=== PATIENT | male | born 1935 | race Caucasian/White ===

== ENCOUNTER 2017-11-03 08:40 | Inpatient (IN) | payer MEDICARE, OTHER ==
[2017-11-03] VITALS (10 sets, daily range): BP systolic 96–111; BP diastolic 48–63
[~2017-11-03] VITALS: Ht 157.5 cm; Wt 74.8 kg
[~2017-11-03 08:40] MED LIST: ALBUTEROL2.5 MG/3 M INH; ATROVENT HFA12.9 GM IH; AUGMENTIN 500-1 EACH ORAL; CIPROFLOXACIN750 MG ORAL; COMBIVENT RESPIM4 GM IH; CRESTOR10 M2 ORAL; CYMBALTA30 MG ORAL; DALIRESP500 MCG PO; FERROUS SULFAT325 MG ORAL; FISH OIL 1,0001 EAC1 ORAL; LOSARTAN POTASS25 MG ORAL; MESALAMINE800 MG PO; NEXIUM40 MG ORAL; PREDNISONE10 MG ORAL; PREDNISONE20 MG ORAL; PROSCAR5 MG ORAL; TAMSULOSIN HCL0.4 MG ORAL
[2017-11-03] MEDS ORDERED: Solu-MEDROL 125mg Inj IVP ONE (08:45)
--- NOTE | 2017-11-03 08:55 | Emergency Room Report ---
History of Present Illness General Chief Complaint: Dyspnea/Respdistress Source: Patient, Family Member Present Illness HPI 82-year-old male brought in by EMS with shortness of breath since last night Patient has known history of COPD, on home oxygen. Per EMR, patient has had multiple visits here before. Patient feels better after albuterol x3 and CPAP mask with EMS Refusing BiPAP in ER Denies fever, chills, recent cough or URI symptoms. Allergies: Coded Allergies: PENICILLINS (Verified Allergy, Intermediate, 08/28/16) AZITHROMYCIN (Verified Allergy, Unknown, 08/28/16) Diarrhea UNABLE TO ASSESS (Unverified , 11/03/17) Patient History Past Medical History: COPD Past Surgical History: none Pertinent Family History: none Social History: Denies: smoking, alcohol use, drug use Immunizations: UTD Reviewed Nursing Documentation: PMH: Agreed, PSxH: Agreed Nursing Documentation-PMH Hx Hypertension: Yes Hx COPD: Yes Hx Cancer: No Hx Gastrointestinal Problems: Yes Hx Neurological Problems: No Review of Systems All Other Systems: negative except mentioned in HPI Physical Exam Vital Signs Date Time Temp Pulse Resp B/P (MAP) Pulse Ox O2 Delivery O2 Flow Rate FiO2 11/03/17 08:34 120 30 118/66 95 Bi-pap Sp02 EP Interpretation: reviewed, normal General Appearance: normal inspection, well appearing, no apparent distress, alert, GCS 15, non-toxic Head: normocephalic, atraumatic Eyes: bilateral eye PERRL, bilateral eye EOMI ENT: normal ENT inspection, hearing grossly normal, normal pharynx, no angioedema, normal voice, TMs + canals normal, uvula midline, moist mucus membranes Neck: normal inspection, full range of motion, supple, thyroid normal, no meningismus, no bony tend Respiratory: normal inspection, lungs clear, normal breath sounds, no rhonchi, no respiratory distress, no retraction, no accessory muscle use, speaking full sentences, wheezing Cardiovascular #1: regular rate, rhythm, no edema, no JVD, normal capillary refill Gastrointestinal: normal inspection, normal bowel sounds, non tender, soft, no mass, no peritonitis, non-distended, no guarding, no hernia, no pulsatile mass Genitourinary: no CVA tenderness Musculoskeletal: normal inspection, back normal, normal range of motion, no calf tenderness, pelvis stable, Haroon's Sign negative Neurologic: normal inspection, alert, oriented x3, responsive, ship's carpenter III-XII nml as tested, motor strength/tone normal, cerebellar normal, normal gait, speech normal Psychiatric: normal inspection, judgement/insight normal, mood/affect normal, no suicidal/homicidal ideation, no delusions Skin: normal inspection, normal color, no rash Lymphatic: normal inspection, no adenopathy Procedures Critical Care Time Critical Care Time CC time 35 min Critical care time endorsed for this patient for severe respiratory distress, COPD exacerbation found d/t left lobar PNA Critical care time includes review of laboratory tests, imaging, review of EMR, review of paperwork from SNF (if available), discussion with patient and family (if available), review of code status/POLS (if available). Critical care time also likely includes assessment of fluid status, stabilization of vital signs, selection and dosing of appropriate antibiotics, sepsis care set. Critical care time does not include any procedures which are documented elsewhere in this EMR. Medical Decision Making Diagnostic Impression: Primary Impression: Dyspnea Qualified Codes: R06.00 - Dyspnea, unspecified Additional Impressions: CKD (chronic kidney disease) Qualified Codes: N18.9 - Chronic kidney disease, unspecified Pneumonia Qualified Codes: J18.1 - Lobar pneumonia, unspecified organism COPD exacerbation ER Course VS with tachycardia likely from 3x albuterol from EMS Afebrile Normotensive labs: Elevated leuks 16K CXR with left lower lobe PNA Blood Cx pending Flu pending Empiric Abx given SerumCr 1.8, consistent with known CKD Endorsed to Dr Chase for tele admit 944am EKG Diagnostic Results Rate: tachycardiac Rhythm: NSR ST Segments: no acute changes ASA given to the pt in ED: No Rhythm Strip Diag. Results EP Interpretation: yes Rate: 135 Rhythm: NSR, no PVC's, no ectopy Chest X-Ray Diagnostic Results Chest X-Ray Diagnostic Results : Chest X-Ray Ordered: Yes # of Views/Limited/Complete: 1 View Indication: Shortness of Breath EP Interpretation: Yes Interpretation: no effusion, no pneumothorax, no acute cardiopulmonary disease, other - left lower lobar PNA Last Vital Signs Date Time Temp Pulse Resp B/P (MAP) Pulse Ox O2 Delivery O2 Flow Rate FiO2 11/03/17 08:34 120 30 118/66 95 Bi-pap Status: improved Disposition: ADMITTED INPATIENT Condition: Critical DAIGNAULT,AKSHAT M.D. Nov 03, 2017 08:55
[2017-11-03] MEDS: Albuterol/Ipratropium 3ml neb HHN SCH ×32 (08:56→23:22)
[2017-11-03 09:02] LABS: BASOPHILS % (AUTO) 0.3 % (0.0-2.0); EOSINOPHILS % (AUTO) 0.9 % (0.0-3.0); HEMATOCRIT 52.1 % (42.0-52.0); HEMOGLOBIN 17.5 G/DL (14.2-18.0); LYMPHOCYTES % (AUTO) 11.4 % (20.0-45.0); MEAN CORPUSCULAR VOLUME 92 FL (80-99); MONOCYTES % (AUTO) 3.5 % (1.0-10.0); NEUTROPHILS % (AUTO) 83.9 % (45.0-75.0); PLATELET COUNT 280 K/UL (150-450); RED BLOOD COUNT 5.68 M/UL (4.70-6.10); RED CELL DISTRIBUTION WIDTH 12.3 % (11.6-14.8); WHITE BLOOD COUNT 16.8 K/UL (4.8-10.8)
[2017-11-03 09:12] LABS: ANION GAP 4 mmol/L (5-15); BLOOD UREA NITROGEN 20 mg/dL (7-18); CALCIUM 9.7 MG/DL (8.5-10.1); CARBON DIOXIDE 32 MMOL/L (21-32); CHLORIDE 97 MMOL/L (98-107); CREATININE 1.8 MG/DL (0.55-1.30); POTASSIUM 3.9 MMOL/L (3.5-5.1); SODIUM 133 MMOL/L (136-145)
[2017-11-03 09:26] LABS: ALANINE AMINOTRANSFERASE 39 U/L (12-78); ALBUMIN 3.4 G/DL (3.4-5.0); ALBUMIN/GLOBULIN RATIO 0.7 (1.0-2.7); ALKALINE PHOSPHATASE 105 U/L (46-116); ASPARTATE AMINO TRANSFERASE 33 U/L (15-37); CREATINE KINASE 75 U/L (26-308)
--- NOTE | 2017-11-03 10:42 | Diagnostic Imaging Report ---
Indication: Dyspnea Comparison: 08/29/2016 A single view chest radiograph was obtained. Findings: Patchy infiltrate noted at the lung bases worse on the left. Heart size is normal. Please correlate clinically. Bones are slightly osteopenic. IMPRESSION: Suspected pneumonia.
[2017-11-03] MEDS ORDERED: Milk of Magnesia 30ml Ud ORAL PRN (16:15)
[2017-11-03] MEDS ORDERED: Zolpidem 5mg tab ORAL PRN (16:15)
[2017-11-03] MEDS: Mesalamine 400mg cap ORAL SCH (18:19)
[2017-11-03] MEDS: Aztreonam Inj 1 GM in NS 55 ML IVPB SCH (18:20)
[2017-11-03] MEDS: Atorvastatin 20mg tab ORAL SCH (20:34)
[2017-11-03] MEDS: Tamsulosin 0.4mg cap ORAL SCH (20:34)
[2017-11-03] MEDS: Solu-MEDROL 125mg Inj IVP SCH (20:35)
[2017-11-03] MEDS: Heparin 5000 units/ml inj SUBQ SCH (20:36)
[2017-11-04] VITALS: BP 109/47
--- NOTE | 2017-11-04 00:15 | Consultation ---
DATE OF CONSULTATION: 11/03/2017 PULMONARY CONSULTATION CONSULTING PHYSICIAN: Anderson Chase M.D. REASON FOR ADMISSION: Pneumonia, respiratory insufficiency. HISTORY OF PRESENT ILLNESS: The patient is an 82-year-old male, brought in with shortness of breath. The patient with known history of COPD, on home oxygen. The patient has had multiple visits in the past. The patient was given albuterol several times without relief. The patient apparently refused BiPAP in the emergency room, but overall did improve to some extent and now admitted to the telemetry floor. The patient's care discussed and reviewed. The patient's chart previously reviewed. The patient remains with some dyspnea overall. The patient's office chart was well reviewed. The patient last seen in the office setting approximately one year ago. The patient has had prior admissions outlined for emphysema and COPD exacerbation. PAST MEDICAL HISTORY: Notable for benign prostatic hyperplasia, hypertension, hypercholesterolemia, prior history of colitis, COPD, and anemia. PAST SURGICAL HISTORY: Noncontributory. FAMILY HISTORY: Both parents . No significant medical problems. SOCIAL HISTORY: The patient is retired, lives with his spouse. The patient has two children. The patient is a former smoker and smoked approximately 50-pack years. The patient with occasional alcohol use. REVIEW OF SYSTEMS: Otherwise negative with the exception for fatigue, shortness of breath, cough, and congestion. PHYSICAL EXAMINATION: GENERAL: A well-developed male, somewhat short of breath, in no distress. VITAL SIGNS: Blood pressure 102/50, 99% saturation on 6 liters, heart rate is about 60, respiratory rate 24, and temperature 98.5 degrees. HEENT: Negative. The patient's oropharynx moist. NECK: Supple. LUNGS: With scattered wheezes. Rhonchi reduced overall. CARDIAC: Normal S1 and S2. Slightly tachycardic without murmurs, rubs, or gallops. ABDOMEN: Soft, nontender, and nondistended. EXTREMITIES: No cyanosis or clubbing. NEUROLOGIC: Grossly nonfocal. LABORATORY AND DIAGNOSTIC DATA: Lab data reviewed. ABG, 7.41 39, 99 and 24. Chemistries noted, sodium 133, blood sugar 126, BUN 20 and creatinine 1.8. White cell count 16.8, hematocrit 52, and platelets of 280. X-ray with evidence of pneumonia. IMPRESSION: 1. Chronic obstructive pulmonary disease with acute exacerbation. 2. Pneumonia, likely community acquired. 3. Evidence of chronic renal impairment. 4. Evidence of benign prostatic hyperplasia. 5. Evidence of leukocytosis, concerned for sepsis. 6. Hypertension. RECOMMENDATION: Resume home medications and home prednisone. Start the patient on IV Solu-Medrol and empiric antibiotics. The patient is allergic to penicillin. We will start aztreonam as well as Levaquin. Respiratory care and oxygen therapy. The patient refusing BiPAP for now. We will monitor clinically and recommend, and we will assist with discharge planning once the patient improved and followup x-rays are clear. Anderson Chase M.D. DR: ABHILASH JOB#: [id number] CC:
[2017-11-04] MEDS: Albuterol/Ipratropium 3ml neb HHN SCH ×6 (03:38→23:10)
[2017-11-04 07:16] LABS: HEMATOCRIT 40.4 % (42.0-52.0); HEMOGLOBIN 13.7 G/DL (14.2-18.0); MEAN CORPUSCULAR VOLUME 92 FL (80-99); PLATELET COUNT 248 K/UL (150-450); RED BLOOD COUNT 4.41 M/UL (4.70-6.10); RED CELL DISTRIBUTION WIDTH 12.2 % (11.6-14.8)
[2017-11-04 07:29] LABS: ANION GAP 8 mmol/L (5-15); BLOOD UREA NITROGEN 28 mg/dL (7-18); CARBON DIOXIDE 25 MMOL/L (21-32); CHLORIDE 102 MMOL/L (98-107); CREATININE 1.9 MG/DL (0.55-1.30); SODIUM 135 MMOL/L (136-145)
[2017-11-04 08:00] VITALS: BP 111/57
--- NOTE | 2017-11-04 08:33 | Pulmonology Progress Note ---
Assessment/Plan Assessment/Plan IMPRESSION: 1. Chronic obstructive pulmonary disease with acute exacerbation. 2. Pneumonia, likely community acquired. 3. Evidence of chronic renal impairment. 4. Evidence of benign prostatic hyperplasia. 5. Evidence of leukocytosis, concerned for sepsis. 6. Hypertension. PLAN care as is iv steroids iv antibiotics respiratory care oxygen DVT prophylaxis monitor labs and imaging impression, plan, and exam edited and reviewed in detail care discussed with RN Subjective Allergies: Coded Allergies: PENICILLINS (Verified Allergy, Intermediate, 08/28/16) AZITHROMYCIN (Verified Allergy, Unknown, 08/28/16) Diarrhea UNABLE TO ASSESS (Unverified , 11/03/17) Subjective care noted some congestion stable overnight Objective Last 24 Hour Vital Signs Date Time Temp Pulse Resp B/P (MAP) Pulse Ox O2 Delivery O2 Flow Rate FiO2 11/04/17 04:00 100 11/04/17 04:00 100 11/04/17 03:38 Room Air 11/04/17 03:38 Room Air 11/04/17 00:00 97.9 104 22 109/47 94 Nasal Cannula 2.0 11/04/17 00:00 104 11/03/17 23:32 104 18 98 Nasal Cannula 3.0 32 11/03/17 23:24 93 Nasal Cannula 3.0 32 11/03/17 23:23 Nasal Cannula 3.0 32 11/03/17 23:23 104 18 94 Nasal Cannula 3.0 32 11/03/17 20:04 102 20 98 Room Air 21 11/03/17 20:00 101 11/03/17 20:00 96.3 101 24 108/52 93 Simple Mask 6.0 11/03/17 19:54 91 20 96 Room Air 21 11/03/17 16:00 97.5 109 24 108/63 97 Simple Mask 6.0 11/03/17 16:00 110 11/03/17 15:00 109 11/03/17 13:42 97.9 112 22 109/58 96 Simple Mask 6.0 11/03/17 13:15 98.5 116 24 102/50 99 Simple Mask 6.0 11/03/17 13:07 98.5 116 24 103/50 Simple Mask 6.0 98.5 11/03/17 12:09 98.8 117 23 111/50 98 Simple Mask 6.0 98.8 11/03/17 11:41 98.4 121 26 105/48 97 Simple Mask 6.0 98.4 11/03/17 11:06 98.5 128 24 102/50 97 Simple Mask 6.0 98.5 11/03/17 09:52 98.8 138 23 103/55 98 Simple Mask 6.0 98.8 11/03/17 09:47 128 25 98 Simple Mask 6.0 45 11/03/17 09:21 98.5 132 26 111/55 98 Simple Mask 6.0 98.5 11/03/17 09:07 98.5 130 25 96/56 98 Simple Mask 10.0 98.5 11/03/17 09:04 130 25 97 Simple Mask 6.0 11/03/17 09:04 130 25 Simple Mask 6.0 11/03/17 09:03 130 25 Simple Mask 10.0 11/03/17 08:34 120 30 118/66 95 Bi-pap Intake and Output 11/03/17 11/04/17 19:00 07:00 Intake Total 370 ml 200 ml Balance 370 ml 200 ml Intake Oral 120 ml 200 ml IV Total 250 ml # Voids 1 Objective GENERAL: A well-developed male, somewhat short of breath, in no distress. HEENT: Negative. The patient's oropharynx moist. NECK: Supple. LUNGS: With scattered wheezes. Rhonchi noted with breath sounds reduced overall. CARDIAC: Normal S1 and S2. Slightly tachycardic without murmurs, rubs, or gallops. ABDOMEN: Soft, nontender, and nondistended. no HSM EXTREMITIES: No cyanosis or clubbing. NEUROLOGIC: Grossly nonfocal.weak Laboratory Tests 11/03/17 08:45: White Blood Count 16.8H, Red Blood Count 5.68, Hemoglobin 17.5, Hematocrit 52.1H , Mean Corpuscular Volume 92, Mean Corpuscular Hemoglobin 30.8, Mean Corpuscular Hemoglobin Concent 33.5, Red Cell Distribution Width 12.3, Platelet Count 280, Mean Platelet Volume 6.1L, Neutrophils (%) (Auto) 83.9H, Lymphocytes (%) (Auto) 11.4L, Monocytes (%) (Auto) 3.5, Eosinophils (%) (Auto) 0.9, Basophils (%) (Auto) 0.3, Sodium Level 133L, Potassium Level 3.9, Chloride Level 97L, Carbon Dioxide Level 32, Anion Gap 4L, Blood Urea Nitrogen 20H, Creatinine 1.8H, Estimat Glomerular Filtration Rate , Glucose Level 126H, Calcium Level 9.7, Total Bilirubin 1.0, Aspartate Amino Transf (AST/SGOT) 33, Alanine Aminotransferase (ALT/SGPT) 39, Alkaline Phosphatase 105, Total Creatine Kinase 75, Creatine Kinase MB 1.0, Creatine Kinase MB Relative Index 1.3, Troponin I 0.010, Pro-B-Type Natriuretic Peptide 73, Total Protein 8.3H, Albumin 3.4, Globulin 4.9, Albumin/Globulin Ratio 0.7L 11/03/17 09:30: Arterial Blood pH 7.416, Arterial Blood Partial Pressure CO2 39.5, Arterial Blood Partial Pressure O2 99.0, Arterial Blood HCO3 24.8, Arterial Blood Oxygen Saturation 97.3, Arterial Blood Base Excess 0.4, Adama Test Positive 11/04/17 05:50: White Blood Count 20.0H, Red Blood Count 4.41L, Hemoglobin 13.7L, Hematocrit 40.4L, Mean Corpuscular Volume 92, Mean Corpuscular Hemoglobin 31.2H, Mean Corpuscular Hemoglobin Concent 34.0, Red Cell Distribution Width 12.2, Platelet Count 248, Mean Platelet Volume 6.0L, Neutrophils (%) (Auto) , Lymphocytes (%) ( Auto) , Monocytes (%) (Auto) , Eosinophils (%) (Auto) , Basophils (%) (Auto) , Sodium Level 135L, Potassium Level 4.0, Chloride Level 102, Carbon Dioxide Level 25, Anion Gap 8, Blood Urea Nitrogen 28H, Creatinine 1.9H, Estimat Glomerular Filtration Rate , Glucose Level 146H, Calcium Level 9.0, Neutrophils % (Manual) [Pending], Lymphocytes % (Manual) [Pending], Platelet Estimate [ Pending], Platelet Morphology [Pending] Current Medications Medications (Trade) Dose Ordered Sig/Kylah Route PRN Reason Start Time Stop Time Status Last Admin Dose Admin Acetaminophen (Tylenol) 650 mg Q4H PRN ORAL Mild Pain/Temp > 100.5 11/03/17 16:15 12/03/17 16:14 Al Hydroxide/Mg Hydroxide (Mylanta) 30 ml Q4H PRN ORAL Abdominal cramps 11/03/17 16:15 12/03/17 16:14 Albuterol/ Ipratropium (Albuterol/ Ipratropium) 3 ml Q4HRT HHN 11/03/17 19:00 11/08/17 18:59 11/03/17 23:22 Atorvastatin Calcium (Lipitor) 20 mg BEDTIME ORAL 11/03/17 21:00 12/03/17 20:59 11/03/17 20:34 Aztreonam 1 gm/ Sodium Chloride 55 ml @ 110 mls/hr Q12HR IVPB 11/03/17 18:00 11/10/17 17:59 11/03/17 18:20 Duloxetine HCl (Cymbalta) 30 mg DAILY ORAL 11/04/17 09:00 12/04/17 08:59 Ferrous Sulfate (Feosol) 325 mg DAILY ORAL 11/04/17 09:00 12/04/17 08:59 Finasteride (Proscar) 5 mg DAILY ORAL 11/04/17 09:00 12/04/17 08:59 Fish Oil (Fish Oil) 1,000 mg BID ORAL 11/04/17 09:00 12/04/17 08:59 Heparin Sodium (Porcine) (Heparin 5000 units/ml) 5,000 units EVERY 12 HOURS SUBQ 11/03/17 21:00 12/03/17 20:59 11/03/17 20:36 Levofloxacin (Levaquin) 750 mg Q48H ORAL 11/05/17 09:30 11/12/17 09:29 Losartan Potassium (Cozaar) 100 mg DAILY ORAL 11/04/17 09:00 12/04/17 08:59 Magnesium Hydroxide (Mom) 30 ml DAILYPRN PRN ORAL Constipation 11/03/17 16:15 12/03/17 16:14 Mesalamine (Asacol) 800 mg BID ORAL 11/03/17 18:00 12/03/17 17:59 11/03/17 18:19 Methylprednisolone Sodium Succinate (Solu-MEDROL) 60 mg EVERY 12 HOURS IVP 11/03/17 21:00 12/03/17 20:59 11/03/17 20:35 Pantoprazole (Protonix) 40 mg DAILY ORAL 11/04/17 09:00 12/04/17 08:59 Tamsulosin HCl (Flomax) 0.4 mg BEDTIME ORAL 11/03/17 21:00 12/03/17 20:59 11/03/17 20:34 Zolpidem Tartrate (Ambien) 5 mg HSPRN PRN ORAL Insomnia 11/03/17 16:15 11/10/17 16:14 RENY REA Nov 04, 2017 08:33
[2017-11-04] MEDS: Mesalamine 400mg cap ORAL SCH ×2 (08:45→18:54)
[2017-11-04] MEDS: DULoxetine 30mg cap ORAL SCH (08:45)
[2017-11-04] MEDS: Losartan 50mg tab ORAL SCH ×2 (08:45→09:00)
[2017-11-04] MEDS: Solu-MEDROL 125mg Inj IVP SCH ×2 (08:46→20:40)
[2017-11-04] MEDS ORDERED: Esomeprazole sodium 40mg vial IVP SCH (09:00)
[2017-11-04] MEDS: Aztreonam Inj 1 GM in NS 55 ML IVPB SCH ×2 (09:07→20:40)
[2017-11-04] MEDS: Heparin 5000 units/ml inj SUBQ SCH ×2 (09:10→20:41)
[2017-11-04 12:00] VITALS: BP 107/57
--- NOTE | 2017-11-04 14:25 | Cardiology Report ---
APPROVED REPORT EKG Measurement Heart [id number] MD [id number] Sinus tachycardia Right superior axis deviation Nonspecific ST abnormality Abnormal ECG
[2017-11-04 16:00] VITALS: BP 118/70
--- NOTE | 2017-11-04 18:15 | History and Physical Report ---
DATE OF ADMISSION: 11/03/2017 CHIEF COMPLAINT: Pneumonia and COPD exacerbation. HISTORY OF PRESENT ILLNESS: The patient is a pleasant 82-year-old male with a history of COPD, hypertension, and chronic bronchitis. He presented with complaints of shortness of breath that developed on the day of admission. The patient does admit to chronic shortness of breath. On the day of transfer here, he was increasingly short of breath. He had had a productive cough. He had no fevers or chills. Denied any ill contacts. On evaluation in the emergency room, the patient had x-ray evidence of pneumonia. He was wheezing and hypoxic. He is pancultured. He has been started on broad-spectrum IV antibiotic therapy. He is now admitted for further evaluation and care. PAST MEDICAL HISTORY: As above. PAST SURGICAL HISTORY: None. CURRENT MEDICATIONS: Reconciled and reviewed. ALLERGIES: Include azithromycin and penicillin. FAMILY HISTORY: Noncontributory. SOCIAL HISTORY: The patient has a prior heavy history of smoking, but quit 15 years ago. No alcohol. No drugs. REVIEW OF SYSTEMS: GENERAL: No fever or chills. HEENT: No headaches or visual changes. CARDIOPULMONARY: No chest pain. Positive shortness of breath, cough, and congestion. GASTROINTESTINAL: No nausea or vomiting. GENITOURINARY: No urgency or frequency. MUSCULOSKELETAL: No joint pain or swelling. NEUROLOGIC: No evidence of seizures. PHYSICAL EXAMINATION: VITAL SIGNS: Temperature 98, pulse 104, respirations 22, and blood pressure 109/47. GENERAL: The patient is a well-developed male, in no apparent distress. HEART: Regular rate and rhythm. LUNGS: Significant for bilateral wheezes. ABDOMEN: Soft, nontender, and nondistended. EXTREMITIES: Without clubbing, cyanosis, or edema. LABORATORY DATA: White count was 17,000, hemoglobin 17, hematocrit 52, and platelets of 280,000. Sodium was 133 and creatinine was 1.8. ASSESSMENT: This is a pleasant male, admitted with complaints of chronic obstructive pulmonary disease exacerbation, community-acquired pneumonia. Additional problems include acute versus chronic kidney disease and hypertension. PLAN: IV steroids. IV antibiotics. Monitor chest x-ray. Respiratory treatments. Consider renal ultrasound. Monitor the patient's renal function. John Hancock M.D. DR: ABBEY JOB#: [id number] CC:
[2017-11-04 20:00] VITALS: BP 114/56
[2017-11-04] MEDS: Tamsulosin 0.4mg cap ORAL SCH (20:39)
[2017-11-04] MEDS: Atorvastatin 20mg tab ORAL SCH (20:40)
[2017-11-05] VITALS: BP 114/54
[2017-11-05] MEDS: Albuterol/Ipratropium 3ml neb HHN SCH ×6 (03:18→23:29)
[2017-11-05 08:00] VITALS: BP 125/69
[2017-11-05] MEDS: Mesalamine 400mg cap ORAL SCH ×2 (08:55→17:09)
[2017-11-05] MEDS: Losartan 50mg tab ORAL SCH (08:55)
[2017-11-05] MEDS: Aztreonam Inj 1 GM in NS 55 ML IVPB SCH ×2 (08:55→21:13)
[2017-11-05] MEDS: DULoxetine 30mg cap ORAL SCH (08:56)
[2017-11-05] MEDS: Solu-MEDROL 125mg Inj IVP SCH (08:56)
[2017-11-05] MEDS: Heparin 5000 units/ml inj SUBQ SCH ×2 (08:58→21:24)
--- NOTE | 2017-11-05 10:57 | General Progress Note ---
Assessment/Plan Problem List: (1) COPD (chronic obstructive pulmonary disease) ICD Codes: J44.9 - Chronic obstructive pulmonary disease, unspecified SNOMED: 91188694 (2) Pneumonia ICD Codes: J18.9 - Pneumonia, unspecified organism SNOMED: 822807326 Qualifiers: Qualified Codes: J18.1 - Lobar pneumonia, unspecified organism (3) CKD (chronic kidney disease) ICD Codes: N18.9 - Chronic kidney disease, unspecified SNOMED: [id number] Qualifiers: Qualified Codes: N18.9 - Chronic kidney disease, unspecified Status: stable, progressing Assessment/Plan iv abx decreased steroids resp rx o2 repeat cxr repeat labs high wbc- suspect due to steroids. pt nontoxic consider dc on oral abx tomorrow if cxr better Subjective ROS Limited/Unobtainable: No Constitutional: Reports: malaise, weakness HEENT: Reports: no symptoms Cardiovascular: Reports: no symptoms Respiratory: Reports: cough, shortness of breath, wheezing Gastrointestinal/Abdominal: Reports: no symptoms Genitourinary: Reports: no symptoms Neurologic/Psychiatric: Reports: no symptoms Endocrine: Reports: no symptoms Hematologic/Lymphatic: Reports: no symptoms Allergies: Coded Allergies: PENICILLINS (Verified Allergy, Intermediate, 08/28/16) AZITHROMYCIN (Verified Allergy, Unknown, 08/28/16) Diarrhea UNABLE TO ASSESS (Unverified , 11/03/17) All Systems: reviewed and negative except above Subjective better today. less cough and congestion. less wheezing. Objective Last 24 Hour Vital Signs Date Time Temp Pulse Resp B/P (MAP) Pulse Ox O2 Delivery O2 Flow Rate FiO2 11/05/17 08:55 125/69 11/05/17 08:00 118 11/05/17 08:00 96.8 117 23 125/69 93 Room Air 11/05/17 07:24 98 20 99 Nasal Cannula 3.0 32 11/05/17 07:13 94 Nasal Cannula 3.0 32 11/05/17 07:13 Nasal Cannula 3.0 32 11/05/17 07:13 105 20 94 Nasal Cannula 3.0 32 11/05/17 04:00 110 11/05/17 04:00 110 11/05/17 03:25 108 20 99 Nasal Cannula 3.0 32 11/05/17 03:18 99 20 96 Nasal Cannula 3.0 32 11/05/17 00:00 113 11/05/17 00:00 97.0 119 22 114/54 96 Nasal Cannula 2.0 11/04/17 23:18 102 20 98 Nasal Cannula 3.0 32 11/04/17 23:11 101 20 97 Nasal Cannula 3.0 32 11/04/17 20:08 101 20 97 Nasal Cannula 3.0 32 11/04/17 20:00 108 11/04/17 20:00 97.2 108 22 114/56 97 Nasal Cannula 2.0 11/04/17 19:56 96 Nasal Cannula 3.0 32 11/04/17 19:55 Nasal Cannula 3.0 32 11/04/17 19:53 103 20 96 Nasal Cannula 3.0 32 11/04/17 16:03 107 20 96 Nasal Cannula 3.0 32 11/04/17 16:00 97.3 83 20 118/70 97 Nasal Cannula 2.0 11/04/17 16:00 105 11/04/17 15:51 108 20 95 Nasal Cannula 3.0 32 11/04/17 12:10 103 18 95 Nasal Cannula 3.0 32 11/04/17 12:00 96.6 102 20 107/57 96 Nasal Cannula 2.0 11/04/17 12:00 99 11/04/17 12:00 101 18 93 Nasal Cannula 3.0 32 Intake and Output 11/04/17 11/05/17 19:00 07:00 Intake Total 236 ml 455 ml Output Total 200 ml Balance 236 ml 255 ml Intake Oral 236 ml 400 ml IV Total 55 ml Output Urine Total 200 ml # Voids 1 Height (Feet): 5 Height (Inches): 2.00 Weight (Pounds): 165 General Appearance: WD/WN, alert Neck: supple Cardiovascular: regular rhythm Respiratory/Chest: chest wall non-tender, normal breath sounds, no respiratory distress, no accessory muscle use Abdomen: normal bowel sounds, non tender, soft, no organomegaly Edema: no edema noted Arm (L), no edema noted Arm (R), no edema noted Leg (L), no edema noted Leg (R), no edema noted Pedal (L), no edema noted Pedal (R), no edema noted Generalized MACIE DIAZ Nov 05, 2017 10:57
[2017-11-05 12:00] VITALS: BP 124/61
[2017-11-05 16:00] VITALS: BP 136/69
[2017-11-05] MEDS ORDERED: Tubing IV Secondary IV ONE (17:17)
[2017-11-05 20:00] VITALS: BP 128/66
[2017-11-05] MEDS: Tamsulosin 0.4mg cap ORAL SCH (21:13)
[2017-11-05] MEDS: Atorvastatin 20mg tab ORAL SCH (21:13)
[2017-11-06] VITALS: BP 122/65
[2017-11-06] MEDS: Albuterol/Ipratropium 3ml neb HHN SCH ×6 (02:50→23:37)
[2017-11-06 07:38] LABS: BASOPHILS % (AUTO) 0.3 % (0.0-2.0); HEMATOCRIT 38.1 % (42.0-52.0); HEMOGLOBIN 13.2 G/DL (14.2-18.0); LYMPHOCYTES % (AUTO) 13.2 % (20.0-45.0); MEAN CORPUSCULAR VOLUME 92 FL (80-99); MONOCYTES % (AUTO) 4.6 % (1.0-10.0); NEUTROPHILS % (AUTO) 81.9 % (45.0-75.0); PLATELET COUNT 252 K/UL (150-450); RED BLOOD COUNT 4.16 M/UL (4.70-6.10); RED CELL DISTRIBUTION WIDTH 12.6 % (11.6-14.8); WHITE BLOOD COUNT 14.2 K/UL (4.8-10.8)
[2017-11-06 08:00] VITALS: BP 114/59
[2017-11-06 08:04] LABS: ALANINE AMINOTRANSFERASE 35 U/L (12-78); ALBUMIN 2.4 G/DL (3.4-5.0); ALBUMIN/GLOBULIN RATIO 0.6 (1.0-2.7); ALKALINE PHOSPHATASE 64 U/L (46-116); ANION GAP 5 mmol/L (5-15); ASPARTATE AMINO TRANSFERASE 23 U/L (15-37); BILIRUBIN,TOTAL 0.3 MG/DL (0.2-1.0); BLOOD UREA NITROGEN 39 mg/dL (7-18); CALCIUM 9.1 MG/DL (8.5-10.1); CARBON DIOXIDE 28 MMOL/L (21-32); CHLORIDE 103 MMOL/L (98-107); CREATININE 1.6 MG/DL (0.55-1.30); POTASSIUM 4.2 MMOL/L (3.5-5.1); SODIUM 136 MMOL/L (136-145)
[2017-11-06] MEDS: Losartan 50mg tab ORAL SCH (08:20)
[2017-11-06] MEDS: DULoxetine 30mg cap ORAL SCH (08:20)
[2017-11-06] MEDS: Aztreonam Inj 1 GM in NS 55 ML IVPB SCH ×2 (08:21→20:08)
[2017-11-06] MEDS: Mesalamine 400mg cap ORAL SCH ×2 (08:21→19:18)
[2017-11-06] MEDS: Heparin 5000 units/ml inj SUBQ SCH ×2 (08:25→20:10)
[2017-11-06] MEDS ORDERED: Solu-MEDROL 125mg Inj IVP SCH (09:00)
--- NOTE | 2017-11-06 09:17 | General Progress Note ---
Assessment/Plan Problem List: (1) COPD (chronic obstructive pulmonary disease) ICD Codes: J44.9 - Chronic obstructive pulmonary disease, unspecified SNOMED: [id number] (2) Pneumonia ICD Codes: J18.9 - Pneumonia, unspecified organism SNOMED: 843577406 Qualifiers: Qualified Codes: J18.1 - Lobar pneumonia, unspecified organism (3) CKD (chronic kidney disease) ICD Codes: N18.9 - Chronic kidney disease, unspecified SNOMED: 029209134 Qualifiers: Qualified Codes: N18.9 - Chronic kidney disease, unspecified Status: stable, progressing Assessment/Plan iv abx decreased steroids resp rx o2 repeat cxr pending repeat labs- noted wbc trending down Subjective ROS Limited/Unobtainable: No Constitutional: Reports: malaise, weakness HEENT: Reports: no symptoms Cardiovascular: Reports: no symptoms Respiratory: Reports: cough Gastrointestinal/Abdominal: Reports: no symptoms Genitourinary: Reports: no symptoms Neurologic/Psychiatric: Reports: no symptoms Endocrine: Reports: no symptoms Hematologic/Lymphatic: Reports: no symptoms Allergies: Coded Allergies: PENICILLINS (Verified Allergy, Intermediate, 08/28/16) AZITHROMYCIN (Verified Allergy, Unknown, 08/28/16) Diarrhea UNABLE TO ASSESS (Unverified , 11/03/17) All Systems: reviewed and negative except above Subjective better today. less cough and congestion. less wheezing. cxr results from yesterday pending Objective Last 24 Hour Vital Signs Date Time Temp Pulse Resp B/P (MAP) Pulse Ox O2 Delivery O2 Flow Rate FiO2 11/06/17 08:20 114/59 11/06/17 08:00 97.2 113 21 114/59 94 Room Air 11/06/17 07:09 96 20 99 Nasal Cannula 3.0 32 11/06/17 07:05 92 20 97 Nasal Cannula 3.0 32 11/06/17 07:05 Nasal Cannula 3.0 32 11/06/17 07:05 97 Nasal Cannula 3.0 32 11/06/17 04:00 86 11/06/17 02:50 Nasal Cannula 3.0 32 11/06/17 02:50 Nasal Cannula 3.0 32 11/06/17 00:00 97.0 95 20 122/65 97 Room Air 11/06/17 00:00 96 11/05/17 23:38 100 20 100 Nasal Cannula 3.0 32 11/05/17 23:29 97 22 97 Nasal Cannula 3.0 32 11/05/17 20:00 101 11/05/17 20:00 97.0 108 20 128/66 95 Room Air 11/05/17 19:42 105 20 99 Nasal Cannula 3.0 32 11/05/17 19:36 Nasal Cannula 3.0 32 11/05/17 19:36 97 Nasal Cannula 3.0 32 11/05/17 19:32 99 22 97 Nasal Cannula 3.0 32 11/05/17 16:00 100 11/05/17 16:00 96.7 105 22 136/69 100 Room Air 11/05/17 15:35 96 20 98 Nasal Cannula 3.0 32 11/05/17 15:30 99 20 95 Nasal Cannula 3.0 32 11/05/17 12:00 97.0 104 20 124/61 96 Room Air 11/05/17 12:00 106 11/05/17 11:25 98 20 98 Nasal Cannula 3.0 32 11/05/17 11:14 98 20 94 Nasal Cannula 3.0 32 Intake and Output 11/05/17 11/06/17 19:00 07:00 Intake Total 765 ml 240 ml Balance 765 ml 240 ml Intake Oral 710 ml 240 ml IV Total 55 ml # Voids 3 # Bowel Movements 1 Laboratory Tests 11/06/17 06:45: White Blood Count 14.2H, Red Blood Count 4.16L, Hemoglobin 13.2L, Hematocrit 38.1L, Mean Corpuscular Volume 92, Mean Corpuscular Hemoglobin 31.8H, Mean Corpuscular Hemoglobin Concent 34.7, Red Cell Distribution Width 12.6, Platelet Count 252, Mean Platelet Volume 5.8L, Neutrophils (%) (Auto) 81.9H, Lymphocytes (%) (Auto) 13.2L, Monocytes (%) (Auto) 4.6, Eosinophils (%) (Auto) 0.0, Basophils (%) (Auto) 0.3, Sodium Level 136, Potassium Level 4.2, Chloride Level 103, Carbon Dioxide Level 28, Anion Gap 5, Blood Urea Nitrogen 39H, Creatinine 1.6H, Estimat Glomerular Filtration Rate , Glucose Level 108H, Calcium Level 9.1 , Total Bilirubin 0.3, Aspartate Amino Transf (AST/SGOT) 23, Alanine Aminotransferase (ALT/SGPT) 35, Alkaline Phosphatase 64, Total Protein 6.6, Albumin 2.4L, Globulin 4.2, Albumin/Globulin Ratio 0.6L Height (Feet): 5 Height (Inches): 2.00 Weight (Pounds): 165 MACIE DIAZ Nov 06, 2017 09:17
--- NOTE | 2017-11-06 11:43 | Diagnostic Imaging Report ---
Indication: Cough Comparison: 11/03/2017 A single view chest radiograph was obtained. Findings: Left pulmonary infiltrate has improved significantly since last study with some residual noted. Heart size remains normal. IMPRESSION: Improved left pulmonary infiltrate
[2017-11-06 12:00] VITALS: BP 120/68
[2017-11-06 16:00] VITALS: BP 120/67
[2017-11-06 16:40] VITALS: BP 121/65
[2017-11-06 20:00] VITALS: BP 142/70
[2017-11-06] MEDS ORDERED: Atorvastatin 20mg tab ORAL SCH (21:00)
[2017-11-06] MEDS ORDERED: Tamsulosin 0.4mg cap ORAL SCH (21:00)
[2017-11-07] VITALS: BP 120/62
[2017-11-07] MEDS: Albuterol/Ipratropium 3ml neb HHN SCH ×3 (03:00→12:34)
[2017-11-07 08:00] VITALS: BP_SYST 126; BP_SYST 134; BP_DIAS 69; BP_DIAS 73
[2017-11-07] MEDS: Mesalamine 400mg cap ORAL SCH (08:54)
[2017-11-07] MEDS: Heparin 5000 units/ml inj SUBQ SCH (08:54)
[2017-11-07] MEDS: Aztreonam Inj 1 GM in NS 55 ML IVPB SCH (08:56)
[2017-11-07] MEDS ORDERED: DULoxetine 30mg cap ORAL SCH (09:00)
[2017-11-07] MEDS ORDERED: Losartan 50mg tab ORAL SCH (09:00)
[2017-11-07] MEDS ORDERED: Solu-MEDROL 125mg Inj IVP SCH (09:00)
[2017-11-07] MEDS ORDERED: PREDNISONE10 MG ORAL (09:27)
[2017-11-07] MEDS ORDERED: LEVAQUIN250 M1 ORAL (09:27)
[2017-11-07 11:47] VITALS: BP 130/67
[2017-11-07] MEDS ORDERED: Tubing IV Secondary IV ONE (13:29)
[2017-11-07] MEDS ORDERED: NS 500ML ONE (13:29)
[2017-11-07] MEDS ORDERED: Zolpidem 5mg tab ORAL PRN (16:15)
[2017-11-07] MEDS ORDERED: Milk of Magnesia 30ml Ud ORAL PRN (16:15)
--- NOTE | 2017-11-09 02:15 | Discharge Summary ---
DATE OF ADMISSION: 11/03/2017 DATE OF DISCHARGE: 11/07/2017 ADMISSION DIAGNOSIS: Pneumonia. DISCHARGE DIAGNOSIS: Pneumonia. HOSPITAL COURSE: The patient is a pleasant male, admitted with complaints of shortness of breath. He was diagnosed with pneumonia. He was treated for COPD exacerbation. He received broad-spectrum IV antibiotics. His chest x-ray showed right lower lobe infiltrate. On discharge, the infiltrate has significantly improved. The patient will be discharged home to complete another week of oral antibiotic therapy. DISCHARGE MEDICATIONS: Please see discharge medication list for discharge medications. DIET: Cardiac diet. ACTIVITIES: Ad-jayy. FOLLOWUP: The patient will follow up by his survey interviewer in one to two weeks. John Hancock M.D. DR: ABBEY JOB#: [id number] CC:
== END 2017-11-07 13:30 | disposition home or self-care (01) | DRG 190 ==
LOC: EDBD 08:40 → EDBEDREQ 08:44 → EMR 09:25 → EDBEDREQSVC 09:44 → EDBEDREQ 09:44 → 2E 09:54 → EDBEDREQ 10:41 → 2E 14:15 → 3E 11-06 16:45
DX: J44.0 Chronic obstructive pulmonary disease with (acute) lower respiratory infection (principal); J18.9 Pneumonia, unspecified organism; J44.1 Chronic obstructive pulmonary disease with (acute) exacerbation; N18.9 Chronic kidney disease, unspecified; N40.0 Benign prostatic hyperplasia without lower urinary tract symptoms; Z87.891 Personal history of nicotine dependence; I12.9 Hypertensive chronic kidney disease with stage 1 through stage 4 chronic kidney disease, or unspecified chronic kidney disease; E78.00 Pure hypercholesterolemia, unspecified; Z88.1 Allergy status to other antibiotic agents; Z88.0 Allergy status to penicillin
CPT/HCPCS: 36415; 36600; 71045; 80048; 80053; 82550; 82553; 82803; 83880; 84484; 85007; 85025; 87040; 87070; 87205; 93005; 94640; 94664; 94760; J7620

== ENCOUNTER 2018-05-11 12:23 | Inpatient (IN) | payer MEDICARE, OTHER ==
[~2018-05-11] VITALS: Ht 172.7 cm; Wt 81.6 kg
[~2018-05-11 12:23] MED LIST changes: +LEVAQUIN250 M1 ORAL
[2018-05-11] MEDS ORDERED: cefTRIAXone 1 GM in NS 55 ML IVPB ONE (13:00)
[2018-05-11 13:06] LABS: BASOPHILS % (AUTO) 0.5 % (0.0-2.0); EOSINOPHILS % (AUTO) 7.8 % (0.0-3.0); HEMATOCRIT 42.9 % (42.0-52.0); HEMOGLOBIN 14.1 G/DL (14.2-18.0); LYMPHOCYTES % (AUTO) 17.7 % (20.0-45.0); MEAN CORPUSCULAR VOLUME 90 FL (80-99); MONOCYTES % (AUTO) 8.6 % (1.0-10.0); NEUTROPHILS % (AUTO) 65.4 % (45.0-75.0); PLATELET COUNT 273 K/UL (150-450); RED BLOOD COUNT 4.76 M/UL (4.70-6.10); RED CELL DISTRIBUTION WIDTH 11.6 % (11.6-14.8); WHITE BLOOD COUNT 9.6 K/UL (4.8-10.8)
--- NOTE | 2018-05-11 13:10 | Consultation ---
Consult Note Consult Note Vital Signs -Extended Height: 61 inches Weight: 158.5 pounds Temperature: 98.6 degrees F (oral) Pulse rate: 114 /min Pulse rhythm: regular Respirations: 16 /min O2 Sat: 89% Blood Pressure: 120/59 mm Hg Calculations Body Mass Index: 30.06 Body Surface Area (m2): 1.71 History of Present Illness Hx. Source: patient Primary complaint: FOLLOW UP Duration: 2 weeks Trend of sx: worsening Fever: none Treatment: see med list Trend of Tx: worsens Additional HPI: 83 year old male patient presents today for shortness of breath. patient with lack of improvement and notes ongoing dyspnea and difficulty breathing Patient admits to shortness of breath, cough, sputum production, chest tightness , and difficulty taking a breath. Patient has received IV solumedrol with lack of improvement. patient here with his . patient has no oxygen at home. currently dyspneic Active Medications (reviewed today): PROMETHAZINE-DM 6.25-15 MG/5ML ORAL SYRUP (PROMETHAZINE-DM) 10 CC Q 4 PRN ZETIA 10 MG ORAL TABLET (EZETIMIBE) 1 PO QD PROAIR HFA 108 (90 BASE) MCG/ACT INHALATION AEROSOL SOLUTION (ALBUTEROL SULFATE ) 1-2 puff q 4 hrs prn FERROUS SULFATE 325 (65 Fe) MG ORAL TABLET (FERROUS SULFATE) 1 qd DICYCLOMINE HCL 10 MG ORAL CAPSULE (DICYCLOMINE HCL) 1 tab q6 hr HYZAAR 100-12.5 MG ORAL TABLET (LOSARTAN POTASSIUM-HCTZ) Take one tablet daily OMEGA-3 300 MG ORAL CAPSULE (OMEGA-3 FATTY ACIDS) 1qd ASACOL HD 800 MG ORAL TABLET DELAYED RELEASE (MESALAMINE) Take one tablet two times daily OMEPRAZOLE 40 MG ORAL CAPSULE DELAYED RELEASE (OMEPRAZOLE) Take one tablet two times daily ALBUTEROL SULFATE (2.5 MG/3ML) 0.083% INHALATION NEBULIZATION SOLUTION ( ALBUTEROL SULFATE) 1 every 4 hours SPIRIVA RESPIMAT 2.5 MCG/ACT INHALATION AEROSOL SOLUTION (TIOTROPIUM BROMIDE MONOHYDRATE) 2 PUFF DAILY BREO ELLIPTA 200-25 MCG/INH INHALATION AEROSOL POWDER BREATH ACTIVATED ( FLUTICASONE FUROATE-VILANTEROL) 1 PUFF DAILY FINASTERIDE 5 MG ORAL TABLET (FINASTERIDE) 1 tab mar FLOMAX 0.4 MG CAPCR24 (TAMSULOSIN HCL) 1 by mouth every day Current Allergies (reviewed today): PENICILLIN (PENICILLIN V POTASSIUM) (Mild) Past History Past Medical History (reviewed - no changes required): Benign Prostatic Hyperplasia, Hypertension, Hypercholesterolemia , colitis 09/2016 admitted for 3 days at [facility] for respiratory issues Emphysema anemia Hypercholesterolemia 11/03-11/07/17 Hospitalized at [facility] for 5 days due to pneumonia Surgical History (reviewed - no changes required): None Family History (reviewed - no changes required): Both parents , were healthy when alive Social History (reviewed - no changes required): MARK is a retired person. MARK lives with his spouse. He lives at home in [place]. He is with 2 children. Risk Factors: Smoked Tobacco Use: Former smoker Cigarettes: Yes -- 1 pack(s) per day, Pack-years: 1ppd x 50 years Year started: 1947 Years smoked: 50 Year quit: 1998 Years Since Last Quit: Passive smoke exposure: no Caffeine use: 1 drinks per day Alcohol use: yes Type: occasional Dietary Counseling: yes Review of Systems General: see HPI Eyes: denies blurring, diplopia, irritation, discharge, vision loss, eye pain, photophobia Ear/Nose/Throat: perforated ear drum left Cardiovascular: Denies chest pain, palpitations, syncope, dyspnea on exertion, orthopnea, PND, peripheral edema Respiratory: see HPI Gastrointestinal: Denies nausea, vomiting, diarrhea, constipation, change in bowel habits, abdominal pain, melena, hematochezia, jaundice Genitourinary: Denies dysuria, hematuria, discharge, frequency, hesitancy, nocturia, incontinence, genital sores, impotence or decreased libido Musculoskeletal: arthritis Skin: denies rash, itching, dryness, suspicious lesions Neurologic: denies transient paralysis, weakness, paresthesias, seizures, syncope, tremors, vertigo Psychiatric: denies depression, anxiety, memory loss, mental disturbance, suicidal ideation, hallucinations, paranoia Endocrine: denies cold intolerance, heat intolerance, polydipsia, polyphagia, polyuria, weight change Hematologic/Lymphatic: denies abnormal bruising, bleeding, enlarged lymph nodes Allergic/Immunologic: denies urticaria, hay fever, persistent infections, HIV exposure Physical Exam General Appearance: well nourished, well hydrated, no acute distress Respiratory Respiratory Effort: no intercostal retractions or use of accessory muscles Palpation: normal fremitus Auscultation: coarse breath sounds with reduced air entry no wheeze and worse Cardiovascular Palpation: no thrill or palpable murmurs, no displacement of PMI Auscultation: S1, S2, no murmur, rub, or gallop Carotid arteries: pulses 2+, symmetric, no bruits Peripheral Circulation: no cyanosis, clubbing, edema, or varicosities Musculoskeletal Gait and Station: normal Digits and nails: arthritis Head and neck: normal alignment and mobility Problems Added: Shortness of breath (ICD-786.05) (NUT41-Q26.02) [CDSS Contraindications-CCC] [Lab Results Review] [Labs In-House] Assessment Status of Existing Problems: Assessed Shortness of breath as comment only - Sumaya Jimenez Additional Assessment Comments: COPD exacerbation possible pneumonia hypoxemia respiratory insuffiency BPH hypertension Plan Additional Plan Comments: IV SOLUMEDROL IV ANTIBIOTICS ID evaluation monitor clinically resume meds DVT prophylaxis need to stabilize lack of improvement with home management Anderson Chase MD May 11, 2018 13:10
--- NOTE | 2018-05-11 13:23 | Diagnostic Imaging Report ---
Indication: Chest pain Technique: XRAY Chest 1v Comparison: 11/05/2017 Findings: Heart size and mediastinal contours stable. Compared to the prior exam there is increased interstitial opacity bilaterally. There is no significant pleural effusion. No definite pneumothorax. Osseous structures demonstrate no acute abnormality. Impression: Interval development of bilateral interstitial opacification/edema. Findings may related to CHF/fluid overload versus interstitial pneumonia. Correlate clinically.
[2018-05-11 13:27] LABS: ANION GAP 8 mmol/L (5-15); BLOOD UREA NITROGEN 21 mg/dL (7-18); CALCIUM 9.1 MG/DL (8.5-10.1); CARBON DIOXIDE 28 MMOL/L (21-32); CHLORIDE 100 MMOL/L (98-107); POTASSIUM 3.9 MMOL/L (3.5-5.1); SODIUM 136 MMOL/L (136-145)
[2018-05-11 13:40] LABS: ALANINE AMINOTRANSFERASE 28 U/L (12-78); ALBUMIN 2.6 G/DL (3.4-5.0); ALBUMIN/GLOBULIN RATIO 0.5 (1.0-2.7); ALKALINE PHOSPHATASE 143 U/L (46-116); ASPARTATE AMINO TRANSFERASE 15 U/L (15-37); BILIRUBIN,TOTAL 0.7 MG/DL (0.2-1.0); CREATINE KINASE 61 U/L (26-308)
--- NOTE | 2018-05-11 14:15 | Emergency Room Report ---
History of Present Illness General Chief Complaint: Dyspnea/Respdistress Source: Patient Present Illness HPI This patient referred from Dr. Chase's office. Gradual increased sob, malaise. Pulse ox 88% on RA. Different than baseline. +nonproductive cough, no fever. No leg pain/swelling, no travel. Received IV Solu-medrol with Dr. Chase. PMH: COPD last hosp Sep 2016 Allergies: Coded Allergies: PENICILLINS (Verified Allergy, Intermediate, 08/28/16) AZITHROMYCIN (Verified Allergy, Unknown, 08/28/16) Diarrhea Uncoded Allergies: mushrooms (Adverse Reaction, Severe, Shortness of Breath, 11/07/17) Nursing Documentation-PMH Past Medical History: No History, Except For Hx Cardiac Problems: No Hx Hypertension: Yes Hx Pacemaker: No Hx Asthma: No - bronchitis Hx COPD: No Hx Cancer: No Hx Gastrointestinal Problems: Yes - Colitis Hx Neurological Problems: No Review of Systems Constitutional: Reports: malaise, weakness Eye: Reports: no symptoms ENT: Reports: no symptoms Respiratory: Reports: see HPI, cough, shortness of breath, PERRY Cardiovascular: Reports: no symptoms Gastrointestinal: Reports: no symptoms Genitourinary: Reports: no symptoms Musculoskeletal: Reports: no symptoms Skin: Reports: no symptoms Psychiatric: Reports: no symptoms Neurological: Reports: no symptoms Endocrine: Reports: no symptoms Hematologic/Lymphatic: Reports: no symptoms Allergic: Reports: no symptoms All Other Systems: negative except mentioned in HPI Physical Exam Vital Signs Date Time Temp Pulse Resp B/P (MAP) Pulse Ox O2 Delivery O2 Flow Rate FiO2 05/11/18 12:34 97.9 103 20 122/62 85 Room Air 97.9 05/11/18 12:51 90 Sp02 EP Interpretation: reviewed, other - hypoxic General Appearance: normal inspection, well appearing, no apparent distress, alert, GCS 15, non-toxic Head: normocephalic, atraumatic Eyes: bilateral eye normal inspection, bilateral eye PERRL, bilateral eye EOMI ENT: normal ENT inspection, hearing grossly normal, normal pharynx, no angioedema, normal voice, moist mucus membranes Neck: normal inspection, full range of motion, supple, no meningismus, no bony tend Respiratory: normal inspection, lungs clear, normal breath sounds, no rhonchi, no respiratory distress, no retraction, no accessory muscle use, no wheezing Cardiovascular #1: normal inspection, regular rate, rhythm, no edema Gastrointestinal: normal inspection, normal bowel sounds, non tender, soft, no mass, non-distended Musculoskeletal: gait/station normal, normal range of motion Neurologic: normal inspection, alert, oriented x3, responsive, motor strength/ tone normal Psychiatric: normal inspection, judgement/insight normal, memory normal Suicide Risk Assessment: Suicidal Ideation: No Had intent to initiate attempt: No Pt's plan for suicide attempt: No Has means to complete attempt: No Skin: normal inspection, normal color, no rash, warm/dry Medical Decision Making Diagnostic Impression: Primary Impression: Pneumonia Additional Impression: Dyspnea ER Course There is no wheezing at this time thus no nebs ordered. Pt. is comfortable 96% on two liters nc. Suspect pneumonia, maybe atypical. Will send influenza specimen. Will add BNP to labs. EKG Diagnostic Results EKG Time: 14:15 Rate: normal Rhythm: NSR ST Segments: no acute changes Other Impression NSR 96 right axis, old septal infarct Rhythm Strip Diag. Results Rhythm Strip Time: 14:15 EP Interpretation: yes Rate: 88 Rhythm: NSR Last Vital Signs Date Time Temp Pulse Resp B/P (MAP) Pulse Ox O2 Delivery O2 Flow Rate FiO2 05/11/18 12:51 100 24 Nasal Cannula 90 05/11/18 12:34 97.9 122/62 85 97.9 Disposition: ADMITTED INPATIENT Condition: Serious Referrals: Anderson Chase MD (PCP) Albino Bonner M.D. May 11, 2018 14:15
[2018-05-11 14:24] LABS: CKMB 1.2 NG/ML (0.0-3.6)
[2018-05-11 14:30] VITALS: BP 114/52
[2018-05-11 15:05] LABS: BILIRUBIN, URINE NEGATIVE (NEGATIVE); GLUCOSE, URINE (UA) NEGATIVE (NEGATIVE); KETONES,URINE NEGATIVE (NEGATIVE); LEUKOCYTE ESTERASE ,URINE 1+ (NEGATIVE); NITRITE,URINE NEGATIVE (NEGATIVE); PH,URINE 5 (4.5-8.0); PROTEIN,URINE 2+ (NEGATIVE); UROBILINOGEN,URINE NORMAL MG/DL (0.0-1.0)
[2018-05-11 15:07] LABS: APPEARANCE,URINE SLIGHTLY CLOUDY; COLOR,URINE YELLOW
[2018-05-11 15:39] VITALS: BP 121/62
[2018-05-11 16:50] VITALS: BP 121/62
[2018-05-11 17:13] VITALS: BP 175/92
[2018-05-11] MEDS ORDERED: Milk of Magnesia 30ml Ud ORAL PRN (18:00)
[2018-05-11] MEDS ORDERED: Zolpidem 5mg tab ORAL PRN (18:00)
[2018-05-11] MEDS: Albuterol/Ipratropium 3ml neb HHN SCH ×2 (18:35→23:14)
[2018-05-11] MEDS: Hyzaar 12.5mg/50mg tab ORAL SCH (18:40)
[2018-05-11 19:55] VITALS: BP 137/57
[2018-05-11] MEDS: Solu-MEDROL 125mg Inj IVP SCH (20:46)
[2018-05-11] MEDS: Tamsulosin 0.4mg cap ORAL SCH (20:46)
[2018-05-11] MEDS: Heparin 5000 units/ml inj SUBQ SCH (20:56)
[2018-05-12] MEDS: Albuterol/Ipratropium 3ml neb HHN SCH ×6 (03:09→23:33)
[2018-05-12 04:00] VITALS: BP 102/55
[2018-05-12 06:36] LABS: BASOPHILS % (AUTO) 0.4 % (0.0-2.0); EOSINOPHILS % (AUTO) 0.2 % (0.0-3.0); HEMATOCRIT 43.2 % (42.0-52.0); HEMOGLOBIN 14.3 G/DL (14.2-18.0); LYMPHOCYTES % (AUTO) 16.4 % (20.0-45.0); MEAN CORPUSCULAR VOLUME 90 FL (80-99); MONOCYTES % (AUTO) 2.2 % (1.0-10.0); NEUTROPHILS % (AUTO) 80.8 % (45.0-75.0); PLATELET COUNT 276 K/UL (150-450); RED BLOOD COUNT 4.78 M/UL (4.70-6.10); RED CELL DISTRIBUTION WIDTH 11.7 % (11.6-14.8)
[2018-05-12 07:18] LABS: ANION GAP 11 mmol/L (5-15); BLOOD UREA NITROGEN 24 mg/dL (7-18); CALCIUM 9.2 MG/DL (8.5-10.1); CARBON DIOXIDE 28 MMOL/L (21-32); CHLORIDE 100 MMOL/L (98-107); CREATININE 2.1 MG/DL (0.55-1.30); POTASSIUM 4.9 MMOL/L (3.5-5.1); SODIUM 138 MMOL/L (136-145)
--- NOTE | 2018-05-12 08:13 | Pulmonology Progress Note ---
Assessment/Plan Assessment/Plan Assessment Status of Existing Problems: Assessed Shortness of breath as comment only - Sumaya Jimenez Additional Assessment Comments: COPD exacerbation possible pneumonia hypoxemia respiratory insuffiency BPH hypertension Plan IV SOLUMEDROL IV ANTIBIOTICS as is monitor clinically resume meds DVT prophylaxis need to stabilize home oxygen needed impression, plan, and exam edited and reviewed in detail care discussed with RN Subjective Allergies: Coded Allergies: PENICILLINS (Verified Allergy, Intermediate, 08/28/16) AZITHROMYCIN (Verified Allergy, Unknown, 08/28/16) Diarrhea Uncoded Allergies: mushrooms (Adverse Reaction, Severe, Shortness of Breath, 11/07/17) Subjective comfortable on oxygen care reviewed Objective Last 24 Hour Vital Signs Date Time Temp Pulse Resp B/P (MAP) Pulse Ox O2 Delivery O2 Flow Rate FiO2 05/12/18 07:36 Nasal Cannula 2.0 05/12/18 04:00 98.8 102 18 102/55 (71) 98 98.8 05/12/18 03:19 95 18 98 Nasal Cannula 4.0 36 05/12/18 03:09 95 18 96 Nasal Cannula 4.0 36 05/11/18 23:24 106 20 98 Nasal Cannula 4.0 36 05/11/18 23:14 105 20 94 Nasal Cannula 4.0 36 05/11/18 19:55 99.5 118 18 137/57 (83) 93 99.5 05/11/18 18:46 115 20 97 Nasal Cannula 4.0 36 05/11/18 18:40 175/92 05/11/18 18:36 112 20 Nasal Cannula 4.0 36 05/11/18 18:35 112 20 95 Nasal Cannula 4.0 36 05/11/18 18:35 Nasal Cannula 4.0 36 05/11/18 18:35 95 Nasal Cannula 4.0 36 05/11/18 18:21 Nasal Cannula 4.0 05/11/18 18:18 Nasal Cannula 4.0 05/11/18 17:13 98.1 118 22 175/92 (119) 95 98.1 05/11/18 16:50 97.9 99 25 121/62 94 Nasal Cannula 2.0 90 97.9 05/11/18 16:50 97.8 99 25 121/62 94 Nasal Cannula 2.0 05/11/18 15:39 99 25 121/62 94 Nasal Cannula 2.0 05/11/18 14:30 97.9 102 21 114/52 94 Nasal Cannula 2.0 97.9 05/11/18 12:51 100 24 Nasal Cannula 90 05/11/18 12:34 97.9 103 20 122/62 85 Room Air 97.9 Intake and Output 05/11/18 05/12/18 19:00 07:00 Intake Total 320 ml Balance 320 ml Intake Oral 320 ml # Voids 2 2 Objective WDWN NAD reduced breath sounds bilaterally with some wheezes [id number] without MRG NABS nontender no HSM no CCE nonfocal Microbiology Date/Time Source Procedure Growth Status 05/11/18 14:47 Nasal Not Otherwise Specified Influenza Types A,B Antigen (TAMAR) - Final Complete Laboratory Tests 05/11/18 12:48: White Blood Count 9.6, Red Blood Count 4.76, Hemoglobin 14.1L, Hematocrit 42.9, Mean Corpuscular Volume 90, Mean Corpuscular Hemoglobin 29.5, Mean Corpuscular Hemoglobin Concent 32.8, Red Cell Distribution Width 11.6, Platelet Count 273, Mean Platelet Volume 5.5L, Neutrophils (%) (Auto) 65.4, Lymphocytes (%) (Auto) 17.7L, Monocytes (%) (Auto) 8.6, Eosinophils (%) (Auto) 7.8H, Basophils (%) ( Auto) 0.5, Sodium Level 136, Potassium Level 3.9, Chloride Level 100, Carbon Dioxide Level 28, Anion Gap 8, Blood Urea Nitrogen 21H, Creatinine 2.0H, Estimat Glomerular Filtration Rate , Glucose Level 107H, Lactic Acid Level 1.00 , Calcium Level 9.1, Total Bilirubin 0.7, Aspartate Amino Transf (AST/SGOT) 15, Alanine Aminotransferase (ALT/SGPT) 28, Alkaline Phosphatase 143H, Total Creatine Kinase 61, Creatine Kinase MB 1.2, Creatine Kinase MB Relative Index 1.9, Troponin I 0.017, Pro-B-Type Natriuretic Peptide 278H, Total Protein 7.4, Albumin 2.6L, Globulin 4.8, Albumin/Globulin Ratio 0.5L 05/11/18 14:47: Urine Color Yellow, Urine Appearance Slightly cloudy, Urine pH 5, Urine Specific [place] 1.020, Urine Protein 2+H, Urine Glucose (UA) Negative, Urine Ketones Negative, Urine Blood 5+H, Urine Nitrite Negative, Urine Bilirubin Negative, Urine Urobilinogen Normal, Urine Leukocyte Esterase 1+H, Urine RBC 60- 80H, Urine WBC 2-4, Urine Squamous Epithelial Cells Occasional, Urine Bacteria Few 05/12/18 05:10: White Blood Count 4.0#L, Red Blood Count 4.78, Hemoglobin 14.3, Hematocrit 43.2 , Mean Corpuscular Volume 90, Mean Corpuscular Hemoglobin 29.8, Mean Corpuscular Hemoglobin Concent 33.0, Red Cell Distribution Width 11.7, Platelet Count 276, Mean Platelet Volume 5.6L, Neutrophils (%) (Auto) 80.8H, Lymphocytes (%) (Auto) 16.4L, Monocytes (%) (Auto) 2.2, Eosinophils (%) (Auto) 0.2, Basophils (%) (Auto) 0.4, Sodium Level 138, Potassium Level 4.9, Chloride Level 100, Carbon Dioxide Level 28, Anion Gap 11, Blood Urea Nitrogen 24H, Creatinine 2.1H, Estimat Glomerular Filtration Rate , Glucose Level 172H, Calcium Level 9.2 05/12/18 07:55: Arterial Blood pH 7.399, Arterial Blood Partial Pressure CO2 37.9, Arterial Blood Partial Pressure O2 57.7L, Arterial Blood HCO3 22.9, Arterial Blood Oxygen Saturation 89.3L, Arterial Blood Base Excess -1.5, Adama Test Positive Current Medications Medications (Trade) Dose Ordered Sig/Kylah Route PRN Reason Start Time Stop Time Status Last Admin Dose Admin Acetaminophen (Tylenol) 650 mg Q4H PRN ORAL Mild Pain/Temp > 100.5 05/11/18 18:00 06/10/18 17:59 Al Hydroxide/Mg Hydroxide (Mylanta) 30 ml Q4H PRN ORAL Abdominal cramps 05/11/18 18:00 06/10/18 17:59 Albuterol/ Ipratropium (Albuterol/ Ipratropium) 3 ml Q4HRT HHN 05/11/18 19:00 05/16/18 18:59 05/12/18 07:50 Ceftriaxone Sodium 1 gm/ Dextrose 55 ml @ 110 mls/hr Q24H IVPB 05/12/18 13:00 05/19/18 12:59 Clonidine HCl (Catapres Tab) 0.1 mg Q4H PRN ORAL SBP > 150 05/11/18 18:00 06/10/18 17:59 Finasteride (Proscar) 5 mg DAILY ORAL 05/12/18 09:00 06/11/18 08:59 Fluticasone/ Vilanterol (Breo Ellipta 200/25) 1 puffs DAILY INH 05/12/18 09:00 06/11/18 08:59 HCTZ/Losartan Potassium (Hyzaar 50-12.5) 1 tab DAILY ORAL 05/11/18 18:00 06/10/18 17:59 05/11/18 18:40 Heparin Sodium (Porcine) (Heparin 5000 units/ml) 5,000 units EVERY 12 HOURS SUBQ 05/11/18 21:00 06/10/18 20:59 05/11/18 20:56 Magnesium Hydroxide (Mom) 30 ml DAILYPRN PRN ORAL Constipation 05/11/18 18:00 06/10/18 17:59 Methylprednisolone Sodium Succinate (Solu-MEDROL) 60 mg EVERY 12 HOURS IVP 05/11/18 21:00 06/10/18 20:59 05/11/18 20:46 Pantoprazole (Protonix) 40 mg DAILY ORAL 05/12/18 09:00 06/11/18 08:59 Tamsulosin HCl (Flomax) 0.4 mg BEDTIME ORAL 05/11/18 21:00 06/10/18 20:59 05/11/18 20:46 Zolpidem Tartrate (Ambien) 5 mg HSPRN PRN ORAL Insomnia 05/11/18 18:00 05/18/18 17:59 Anderson Chase MD May 12, 2018 08:13
[2018-05-12 08:38] VITALS: BP 106/61
[2018-05-12] MEDS: Solu-MEDROL 125mg Inj IVP SCH ×2 (09:07→20:40)
[2018-05-12] MEDS: Hyzaar 12.5mg/50mg tab ORAL SCH (09:07)
[2018-05-12] MEDS: Heparin 5000 units/ml inj SUBQ SCH ×2 (09:08→20:43)
--- NOTE | 2018-05-12 11:31 | History and Physical Report ---
DATE OF ADMISSION: 05/11/2018 CHIEF COMPLAINT: Pneumonia and shortness of breath. HISTORY OF PRESENT ILLNESS: The patient is a pleasant 83-year-old male, who has had progressive shortness of breath for the last one to two weeks. He has had some palpitations cough and congestion. His notes that he has had more productive phlegm that has been yellow and green. He denies any fevers or chills. No chest pain or shortness of breath. He was given a dose of steroids without any improvement and is now admitted because of failed respond to outpatient therapy. He denies any ill contacts. He has had no travel. He notes some chest tightness. He also complains of lower extremity pain. PAST MEDICAL HISTORY: Significant for history of COPD, hypertension, hypertensive heart disease, BPH, and history of neuropathy. PAST SURGICAL HISTORY: None. CURRENT MEDICATIONS: Reconciled and reviewed. ALLERGIES: Include penicillin. FAMILY HISTORY: Noncontributory. SOCIAL HISTORY: The patient is a current smoker 50-pack years. REVIEW OF SYSTEMS: GENERAL: No fever or chills. HEENT: No headaches or visual changes. CARDIOPULMONARY: No chest pain. Positive shortness of breath, cough, congestion. GASTROINTESTINAL: No nausea or vomiting. GENITOURINARY: No urgency or frequency. MUSCULOSKELETAL: No joint pain or swelling. NEUROLOGIC: No evidence of seizures. PHYSICAL EXAMINATION: VITAL SIGNS: Temperature 98, pulse 102, respirations 18, and blood pressure 102/55. GENERAL: The patient is well-developed male, in no apparent distress. He is able to speak in full sentences. NECK: Supple. There is no jugular venous distention. HEART: Regular rate and rhythm. LUNGS: Significant for bibasilar rales. ABDOMEN: Soft, nontender, nondistended. EXTREMITIES: Without clubbing, cyanosis, or edema. LABORATORY AND DIAGNOSTIC DATA: Sodium 136, potassium 3.9, creatinine was 2, glucose 107. Natriuretic peptide level was 278. Chest x-ray, bibasilar opacities. ASSESSMENT: This is a pleasant male with history of COPD, hypertension, hypertensive heart disease, BPH, neuropathy, admitted with complaints of shortness of breath, cough, congestion, suspect secondary to pneumonia and COPD exacerbation. PLAN: Intravenous steroids. Respiratory treatments. Check his sputum culture. Empiric antibiotic therapy for community-acquired pneumonia. Pulmonary and Infectious Disease consultations to be obtained. John Hancock M.D. DR: ABBEY JOB#: [id number] CC:
[2018-05-12 11:52] VITALS: BP 107/54
--- NOTE | 2018-05-12 12:09 | Diagnostic Imaging Report ---
Clinical Indication: Shortness of breath Technique: Spiral acquisitions obtained through the chest. No IV contrast utilized, reason not stated. Multiplanar reconstructions generated. Total dose length product 739.2 mGycm. CTDIvol(s) 18.69 mGy. Dose reduction achieved using automated exposure control Comparison: 04/16/2014 Findings: Again demonstrated is diffuse hyperinflation and bilateral bullous changes. Reticular and nodular opacities in the right middle lobe periphery are new since the prior study. Reticular and nodular opacities are also seen in the anterior left lower lobe multiple small nodular opacities are seen in the posterior inferior left upper lobe.. Scarring at both lung bases is unchanged. Previously demonstrated right upper lobe 5 mm irregular opacity is unchanged. No other masses or nodules. No effusions. The heart size is normal. No pericardial effusion. No mediastinal or hilar mass or adenopathy. Included portions of the thyroid are unremarkable. No axillary or chest wall mass or adenopathy. Unremarkable esophagus. The bones are unremarkable. The included upper abdominal anatomy is unremarkable. 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 These may reflect acute atypical pneumonia, noninfectious inflammatory changes, or recent post inflammatory changes Other post inflammatory changes, as described The CT scanner at [facility] is accredited by the [employer] and the scans are performed using protocols designed to limit radiation exposure to as low as reasonably achievable to attain images of sufficient resolution adequate for diagnostic evaluation.
[2018-05-12] MEDS: cefTRIAXone 1 GM in D5W 55 ML IVPB SCH (12:46)
[2018-05-12] MEDS: Breo Ellipta 200/25mcg-14 dose INH SCH (15:16)
[2018-05-12 15:50] VITALS: BP 112/48
[2018-05-12 20:00] VITALS: BP 97/52
[2018-05-12] MEDS: Tamsulosin 0.4mg cap ORAL SCH (20:40)
[2018-05-13] VITALS: BP 91/51
[2018-05-13] MEDS: Albuterol/Ipratropium 3ml neb HHN SCH ×6 (03:16→22:44)
[2018-05-13 04:00] VITALS: BP 113/56
[2018-05-13] MEDS: Breo Ellipta 200/25mcg-14 dose INH SCH (07:57)
[2018-05-13 08:12] VITALS: BP 105/56
[2018-05-13] MEDS: Hyzaar 12.5mg/50mg tab ORAL SCH (08:29)
[2018-05-13] MEDS: Solu-MEDROL 125mg Inj IVP SCH (08:30)
--- NOTE | 2018-05-13 08:31 | General Progress Note ---
Assessment/Plan Problem List: (1) Bronchitis ICD Codes: J40 - Bronchitis, not specified as acute or chronic SNOMED: 92743558 (2) Hypertension ICD Codes: I10 - Essential (primary) hypertension SNOMED: 18930366 (3) COPD (chronic obstructive pulmonary disease) ICD Codes: J44.9 - Chronic obstructive pulmonary disease, unspecified SNOMED: 33008499 (4) Dyspnea ICD Codes: R06.00 - Dyspnea, unspecified SNOMED: 033184073 (5) Pneumonia ICD Codes: J18.9 - Pneumonia, unspecified organism SNOMED: 295500624 (6) SOB (shortness of breath) ICD Codes: R06.02 - Shortness of breath SNOMED: 426063111 Status: stable Assessment/Plan iv abx id eval resp rx o2 follow up cultures Subjective ROS Limited/Unobtainable: No Constitutional: Reports: malaise, weakness HEENT: Reports: no symptoms Cardiovascular: Reports: no symptoms Respiratory: Reports: cough, sputum Gastrointestinal/Abdominal: Reports: no symptoms Genitourinary: Reports: no symptoms Neurologic/Psychiatric: Reports: no symptoms Endocrine: Reports: no symptoms Hematologic/Lymphatic: Reports: no symptoms Allergies: Coded Allergies: PENICILLINS (Verified Allergy, Intermediate, 08/28/16) AZITHROMYCIN (Verified Allergy, Unknown, 08/28/16) Diarrhea Uncoded Allergies: mushrooms (Adverse Reaction, Severe, Shortness of Breath, 11/07/17) All Systems: reviewed and negative except above Subjective no events. feels better today. less congested and sob.CT shows bilateral pna. on iv abx Objective Last 24 Hour Vital Signs Date Time Temp Pulse Resp B/P (MAP) Pulse Ox O2 Delivery O2 Flow Rate FiO2 05/13/18 08:12 96.1 88 20 105/56 (72) 98 96.1 05/13/18 06:50 90 20 98 Nasal Cannula 2.0 05/13/18 06:45 95 20 95 Nasal Cannula 2.0 05/13/18 06:45 Nasal Cannula 2.0 28 05/13/18 06:40 94 Nasal Cannula 2.0 05/13/18 04:00 96.9 102 18 113/56 (75) 95 96.9 05/13/18 03:26 93 18 97 Room Air 21 05/13/18 03:16 95 18 93 Room Air 21 05/13/18 00:00 96.6 96 18 91/51 (64) 96 96.6 05/12/18 23:43 95 18 98 Room Air 21 05/12/18 23:33 96 18 95 Nasal Cannula 3.0 32 05/12/18 21:00 Nasal Cannula 2.0 05/12/18 20:00 97.0 101 20 97/52 (67) 96 97.0 05/12/18 19:37 96 18 97 Nasal Cannula 3.0 36 05/12/18 19:27 93 Nasal Cannula 3.0 32 05/12/18 19:27 104 22 93 Nasal Cannula 3.0 32 05/12/18 19:27 Nasal Cannula 3.0 32 05/12/18 15:50 96.6 102 20 112/48 (69) 97 96.6 05/12/18 15:11 88 18 97 Nasal Cannula 3.0 36 05/12/18 14:57 88 18 96 Nasal Cannula 3.0 32 05/12/18 11:52 98.0 103 20 107/54 (71) 95 98.0 05/12/18 11:29 93 18 98 Nasal Cannula 3.0 36 05/12/18 11:20 91 18 96 Nasal Cannula 3.0 32 05/12/18 09:07 106/61 05/12/18 08:38 97.8 104 20 106/61 (76) 97 97.8 Intake and Output 05/12/18 05/13/18 19:00 07:00 Intake Total 835 ml 100 ml Balance 835 ml 100 ml Intake Oral 780 ml 100 ml IV Total 55 ml # Voids 2 2 Height (Feet): 5 Height (Inches): 8.00 Weight (Pounds): 180 General Appearance: WD/WN, alert Neck: supple Cardiovascular: normal rate, regular rhythm Respiratory/Chest: crackles/rales, rhonchi - bilaterally Abdomen: normal bowel sounds, non tender, soft, no organomegaly Edema: no edema noted Arm (L), no edema noted Arm (R), no edema noted Leg (L), no edema noted Leg (R), no edema noted Pedal (L), no edema noted Pedal (R), no edema noted Generalized John Hancock MD May 13, 2018 08:31
[2018-05-13] MEDS: Heparin 5000 units/ml inj SUBQ SCH ×2 (08:39→20:17)
[2018-05-13 11:31] VITALS: BP 113/60
[2018-05-13] MEDS: cefTRIAXone 1 GM in D5W 55 ML IVPB SCH (12:48)
[2018-05-13] MEDS ORDERED: NS 275ml ONE (13:48)
[2018-05-13] MEDS ORDERED: Tubing IV Secondary IV ONE (13:48)
[2018-05-13 15:55] VITALS: BP 96/71
[2018-05-13] MEDS ORDERED: REPATHA 140MG/ML SUBQ SCH (17:00)
--- NOTE | 2018-05-13 17:20 | Pulmonology Progress Note ---
Assessment/Plan Assessment/Plan Assessment/Plan Assessment Status of Existing Problems: Assessed Shortness of breath as comment only - Sumaya Jimenez Additional Assessment Comments: COPD exacerbation possible pneumonia hypoxemia respiratory insuffiency BPH hypertension Plan IV SOLUMEDROL IV ANTIBIOTICS as is monitor clinically resume meds DVT prophylaxis need to stabilize home oxygen needed impression, plan, and exam edited and reviewed in detail care discussed with RN Subjective Allergies: Coded Allergies: PENICILLINS (Verified Allergy, Intermediate, 08/28/16) AZITHROMYCIN (Verified Allergy, Unknown, 08/28/16) Diarrhea Uncoded Allergies: mushrooms (Adverse Reaction, Severe, Shortness of Breath, 11/07/17) Subjective comfortable on oxygen care reviewed Objective Last 24 Hour Vital Signs Date Time Temp Pulse Resp B/P (MAP) Pulse Ox O2 Delivery O2 Flow Rate FiO2 05/12/18 07:36 Nasal Cannula 2.0 05/12/18 04:00 98.8 102 18 102/55 (71) 98 98.8 05/12/18 03:19 95 18 98 Nasal Cannula 4.0 36 05/12/18 03:09 95 18 96 Nasal Cannula 4.0 36 05/11/18 23:24 106 20 98 Nasal Cannula 4.0 36 05/11/18 23:14 105 20 94 Nasal Cannula 4.0 36 05/11/18 19:55 99.5 118 18 137/57 (83) 93 99.5 05/11/18 18:46 115 20 97 Nasal Cannula 4.0 36 05/11/18 18:40 175/92 05/11/18 18:36 112 20 Nasal Cannula 4.0 36 05/11/18 18:35 112 20 95 Nasal Cannula 4.0 36 05/11/18 18:35 Nasal Cannula 4.0 36 05/11/18 18:35 95 Nasal Cannula 4.0 36 05/11/18 18:21 Nasal Cannula 4.0 05/11/18 18:18 Nasal Cannula 4.0 05/11/18 17:13 98.1 118 22 175/92 (119) 95 98.1 05/11/18 16:50 97.9 99 25 121/62 94 Nasal Cannula 2.0 90 97.9 05/11/18 16:50 97.8 99 25 121/62 94 Nasal Cannula 2.0 05/11/18 15:39 99 25 121/62 94 Nasal Cannula 2.0 05/11/18 14:30 97.9 102 21 114/52 94 Nasal Cannula 2.0 97.9 05/11/18 12:51 100 24 Nasal Cannula 90 05/11/18 12:34 97.9 103 20 122/62 85 Room Air 97.9 Intake and Output 05/11/18 05/12/18 19:00 07:00 Intake Total 320 ml Balance 320 ml Intake Oral 320 ml # Voids 2 2 Objective WDWN NAD reduced breath sounds bilaterally with some wheezes [id number] without MRG NABS nontender no HSM no CCE nonfocal Microbiology Date/Time Source Procedure Growth Status 05/11/18 14:47 Nasal Not Otherwise Specified Influenza Types A,B Antigen (TAMAR) - Final Complete Laboratory Tests 05/11/18 12:48: White Blood Count 9.6, Red Blood Count 4.76, Hemoglobin 14.1L, Hematocrit 42.9, Mean Corpuscular Volume 90, Mean Corpuscular Hemoglobin 29.5, Mean Corpuscular Hemoglobin Concent 32.8, Red Cell Distribution Width 11.6, Platelet Count 273, Mean Platelet Volume 5.5L, Neutrophils (%) (Auto) 65.4, Lymphocytes (%) (Auto) 17.7L, Monocytes (%) (Auto) 8.6, Eosinophils (%) (Auto) 7.8H, Basophils (%) ( Auto) 0.5, Sodium Level 136, Potassium Level 3.9, Chloride Level 100, Carbon Dioxide Level 28, Anion Gap 8, Blood Urea Nitrogen 21H, Creatinine 2.0H, Estimat Glomerular Filtration Rate , Glucose Level 107H, Lactic Acid Level 1.00 , Calcium Level 9.1, Total Bilirubin 0.7, Aspartate Amino Transf (AST/SGOT) 15, Alanine Aminotransferase (ALT/SGPT) 28, Alkaline Phosphatase 143H, Total Creatine Kinase 61, Creatine Kinase MB 1.2, Creatine Kinase MB Relative Index 1.9, Troponin I 0.017, Pro-B-Type Natriuretic Peptide 278H, Total Protein 7.4, Albumin 2.6L, Globulin 4.8, Albumin/Globulin Ratio 0.5L 05/11/18 14:47: Urine Color Yellow, Urine Appearance Slightly cloudy, Urine pH 5, Urine Specific Mcdaniels 1.020, Urine Protein 2+H, Urine Glucose (UA) Negative, Urine Ketones Negative, Urine Blood 5+H, Urine Nitrite Negative, Urine Bilirubin Negative, Urine Urobilinogen Normal, Urine Leukocyte Esterase 1+H, Urine RBC 60- 80H, Urine WBC 2-4, Urine Squamous Epithelial Cells Occasional, Urine Bacteria Few 05/12/18 05:10: White Blood Count 4.0#L, Red Blood Count 4.78, Hemoglobin 14.3, Hematocrit 43.2 , Mean Corpuscular Volume 90, Mean Corpuscular Hemoglobin 29.8, Mean Corpuscular Hemoglobin Concent 33.0, Red Cell Distribution Width 11.7, Platelet Count 276, Mean Platelet Volume 5.6L, Neutrophils (%) (Auto) 80.8H, Lymphocytes (%) (Auto) 16.4L, Monocytes (%) (Auto) 2.2, Eosinophils (%) (Auto) 0.2, Basophils (%) (Auto) 0.4, Sodium Level 138, Potassium Level 4.9, Chloride Level 100, Carbon Dioxide Level 28, Anion Gap 11, Blood Urea Nitrogen 24H, Creatinine 2.1H, Estimat Glomerular Filtration Rate , Glucose Level 172H, Calcium Level 9.2 05/12/18 07:55: Arterial Blood pH 7.399, Arterial Blood Partial Pressure CO2 37.9, Arterial Blood Partial Pressure O2 57.7L, Arterial Blood HCO3 22.9, Arterial Blood Oxygen Saturation 89.3L, Arterial Blood Base Excess -1.5, Adama Test Positive Current Medications Medications (Trade) Dose Ordered Sig/Kylah Route PRN Reason Start Time Stop Time Status Last Admin Dose Admin Acetaminophen (Tylenol) 650 mg Q4H PRN ORAL Mild Pain/Temp > 100.5 05/11/18 18:00 06/10/18 17:59 Al Hydroxide/Mg Hydroxide (Mylanta) 30 ml Q4H PRN ORAL Abdominal cramps 05/11/18 18:00 06/10/18 17:59 Albuterol/ Ipratropium (Albuterol/ Ipratropium) 3 ml Q4HRT HHN 05/11/18 19:00 05/16/18 18:59 05/12/18 07:50 Ceftriaxone Sodium 1 gm/ Dextrose 55 ml @ 110 mls/hr Q24H IVPB 05/12/18 13:00 05/19/18 12:59 Clonidine HCl (Catapres Tab) 0.1 mg Q4H PRN ORAL SBP > 150 05/11/18 18:00 06/10/18 17:59 Finasteride (Proscar) 5 mg DAILY ORAL 05/12/18 09:00 06/11/18 08:59 Fluticasone/ Vilanterol (Breo Ellipta 200/25) 1 puffs DAILY INH 05/12/18 09:00 06/11/18 08:59 HCTZ/Losartan Potassium (Hyzaar 50-12.5) 1 tab DAILY ORAL 05/11/18 18:00 06/10/18 17:59 05/11/18 18:40 Heparin Sodium (Porcine) (Heparin 5000 units/ml) 5,000 units EVERY 12 HOURS SUBQ 05/11/18 21:00 06/10/18 20:59 05/11/18 20:56 Magnesium Hydroxide (Mom) 30 ml DAILYPRN PRN ORAL Constipation 05/11/18 18:00 06/10/18 17:59 Methylprednisolone Sodium Succinate (Solu-MEDROL) 60 mg EVERY 12 HOURS IVP 05/11/18 21:00 06/10/18 20:59 05/11/18 20:46 Pantoprazole (Protonix) 40 mg DAILY ORAL 05/12/18 09:00 06/11/18 08:59 Tamsulosin HCl (Flomax) 0.4 mg BEDTIME ORAL 05/11/18 21:00 06/10/18 20:59 05/11/18 20:46 Zolpidem Tartrate (Ambien) 5 mg HSPRN PRN ORAL Insomnia 05/11/18 18:00 05/18/18 17:59 Subjective ROS Limited/Unobtainable: No Allergies: Coded Allergies: PENICILLINS (Verified Allergy, Intermediate, 08/28/16) AZITHROMYCIN (Verified Allergy, Unknown, 08/28/16) Diarrhea Uncoded Allergies: mushrooms (Adverse Reaction, Severe, Shortness of Breath, 11/07/17) Objective Last 24 Hour Vital Signs Date Time Temp Pulse Resp B/P (MAP) Pulse Ox O2 Delivery O2 Flow Rate FiO2 05/13/18 15:55 95.5 89 18 96/71 (79) 100 95.5 05/13/18 15:12 91 20 99 Nasal Cannula 2.0 28 05/13/18 15:03 93 20 94 Nasal Cannula 2.0 28 05/13/18 11:31 96.9 95 18 113/60 (77) 96 96.9 05/13/18 11:14 91 20 98 Nasal Cannula 2.0 28 05/13/18 11:06 94 20 93 Nasal Cannula 2.0 28 05/13/18 08:48 Nasal Cannula 2.0 05/13/18 08:29 105/56 05/13/18 08:12 96.1 88 20 105/56 (72) 98 96.1 05/13/18 06:50 90 20 98 Nasal Cannula 2.0 28 05/13/18 06:45 95 20 95 Nasal Cannula 2.0 28 05/13/18 06:45 Nasal Cannula 2.0 28 05/13/18 06:40 94 Nasal Cannula 2.0 28 05/13/18 04:00 96.9 102 18 113/56 (75) 95 96.9 05/13/18 03:26 93 18 97 Room Air 21 05/13/18 03:16 95 18 93 Room Air 21 05/13/18 00:00 96.6 96 18 91/51 (64) 96 96.6 05/12/18 23:43 95 18 98 Room Air 21 05/12/18 23:33 96 18 95 Nasal Cannula 3.0 32 05/12/18 21:00 Nasal Cannula 2.0 05/12/18 20:00 97.0 101 20 97/52 (67) 96 97.0 05/12/18 19:37 96 18 97 Nasal Cannula 3.0 36 05/12/18 19:27 93 Nasal Cannula 3.0 32 05/12/18 19:27 104 22 93 Nasal Cannula 3.0 32 05/12/18 19:27 Nasal Cannula 3.0 32 Intake and Output 05/12/18 05/13/18 19:00 07:00 Intake Total 835 ml 100 ml Balance 835 ml 100 ml Intake Oral 780 ml 100 ml IV Total 55 ml # Voids 2 2 Microbiology Date/Time Source Procedure Growth Status 05/11/18 12:48 Blood Blood Culture - Preliminary NO GROWTH AFTER 24 HOURS Resulted 05/11/18 12:40 Blood Blood Culture - Preliminary NO GROWTH AFTER 24 HOURS Resulted 05/11/18 14:47 Nasal Not Otherwise Specified Influenza Types A,B Antigen (TAMAR) - Final Complete Current Medications Medications (Trade) Dose Ordered Sig/Kylah Route PRN Reason Start Time Stop Time Status Last Admin Dose Admin Acetaminophen (Tylenol) 650 mg Q4H PRN ORAL Mild Pain/Temp > 100.5 05/11/18 18:00 06/10/18 17:59 Al Hydroxide/Mg Hydroxide (Mylanta) 30 ml Q4H PRN ORAL Abdominal cramps 05/11/18 18:00 06/10/18 17:59 Albuterol/ Ipratropium (Albuterol/ Ipratropium) 3 ml Q4HRT HHN 05/11/18 19:00 05/16/18 18:59 05/13/18 15:02 Ceftriaxone Sodium 1 gm/ Dextrose 55 ml @ 110 mls/hr Q24H IVPB 05/12/18 13:00 05/19/18 12:59 05/13/18 12:48 Clonidine HCl (Catapres Tab) 0.1 mg Q4H PRN ORAL SBP > 150 05/11/18 18:00 06/10/18 17:59 Finasteride (Proscar) 5 mg DAILY ORAL 05/12/18 09:00 06/11/18 08:59 05/13/18 08:30 Fluticasone/ Vilanterol (Breo Ellipta 200/25) 1 puffs DAILY INH 05/12/18 09:00 06/11/18 08:59 05/13/18 07:57 HCTZ/Losartan Potassium (Hyzaar 50-12.5) 1 tab DAILY ORAL 05/11/18 18:00 06/10/18 17:59 05/12/18 09:07 Heparin Sodium (Porcine) (Heparin 5000 units/ml) 5,000 units EVERY 12 HOURS SUBQ 05/11/18 21:00 06/10/18 20:59 05/13/18 08:39 Magnesium Hydroxide (Mom) 30 ml DAILYPRN PRN ORAL Constipation 05/11/18 18:00 06/10/18 17:59 Methylprednisolone Sodium Succinate (Solu-MEDROL) 60 mg EVERY 12 HOURS IVP 05/11/18 21:00 06/10/18 20:59 05/13/18 08:30 Pantoprazole (Protonix) 40 mg DAILY ORAL 05/12/18 09:00 06/11/18 08:59 05/13/18 08:30 Tamsulosin HCl (Flomax) 0.4 mg BEDTIME ORAL 05/11/18 21:00 06/10/18 20:59 05/12/18 20:40 Zolpidem Tartrate (Ambien) 5 mg HSPRN PRN ORAL Insomnia 05/11/18 18:00 05/18/18 17:59 Joel Cardona MD May 13, 2018 17:20
[2018-05-13 20:00] VITALS: BP 108/57
[2018-05-13] MEDS: Tamsulosin 0.4mg cap ORAL SCH (20:16)
[2018-05-14] VITALS: BP 106/60
[2018-05-14] MEDS: Albuterol/Ipratropium 3ml neb HHN SCH ×6 (02:48→22:52)
[2018-05-14 04:00] VITALS: BP 110/61
[2018-05-14] MEDS: Breo Ellipta 200/25mcg-14 dose INH SCH (08:14)
[2018-05-14 08:22] VITALS: BP 145/80
[2018-05-14] MEDS: Hyzaar 12.5mg/50mg tab ORAL SCH (09:00)
[2018-05-14] MEDS ORDERED: Solu-MEDROL 40mg Inj IVP SCH (09:00)
--- NOTE | 2018-05-14 09:18 | General Progress Note ---
Assessment/Plan Problem List: (1) Bronchitis ICD Codes: J40 - Bronchitis, not specified as acute or chronic SNOMED: 26379516 (2) Hypertension ICD Codes: I10 - Essential (primary) hypertension SNOMED: 84034045 (3) COPD (chronic obstructive pulmonary disease) ICD Codes: J44.9 - Chronic obstructive pulmonary disease, unspecified SNOMED: 25512313 (4) Dyspnea ICD Codes: R06.00 - Dyspnea, unspecified SNOMED: 956238374 (5) Pneumonia ICD Codes: J18.9 - Pneumonia, unspecified organism SNOMED: 506937756 (6) SOB (shortness of breath) ICD Codes: R06.02 - Shortness of breath SNOMED: 879123357 Status: stable, progressing Assessment/Plan iv abx id eval podiatry called resp rx o2 follow up cultures Subjective ROS Limited/Unobtainable: No Constitutional: Reports: malaise, weakness HEENT: Reports: no symptoms Cardiovascular: Reports: no symptoms Respiratory: Reports: cough, sputum Gastrointestinal/Abdominal: Reports: no symptoms Genitourinary: Reports: no symptoms Neurologic/Psychiatric: Reports: no symptoms Endocrine: Reports: no symptoms Hematologic/Lymphatic: Reports: no symptoms Allergies: Coded Allergies: PENICILLINS (Verified Allergy, Intermediate, 08/28/16) AZITHROMYCIN (Verified Allergy, Unknown, 08/28/16) Diarrhea Uncoded Allergies: mushrooms (Adverse Reaction, Severe, Shortness of Breath, 11/07/17) All Systems: reviewed and negative except above Subjective no events. feels better. less congested. c/o toe pain. wants to see podiatry Objective Last 24 Hour Vital Signs Date Time Temp Pulse Resp B/P (MAP) Pulse Ox O2 Delivery O2 Flow Rate FiO2 05/14/18 08:22 97.2 109 18 145/80 (101) 95 97.2 05/14/18 08:12 92 18 99 Nasal Cannula 2.0 05/14/18 08:02 90 18 96 Nasal Cannula 2.0 05/14/18 07:59 96 Nasal Cannula 2.0 05/14/18 07:58 Nasal Cannula 2.0 05/14/18 04:00 98.0 86 18 110/61 (77) 96 98.0 05/14/18 02:56 96 20 97 Nasal Cannula 2.0 05/14/18 02:48 91 20 94 Nasal Cannula 2.0 28 05/14/18 00:00 97.8 100 20 106/60 (75) 94 97.8 05/13/18 22:52 94 20 98 Nasal Cannula 2.0 28 05/13/18 22:44 94 20 93 Nasal Cannula 2.0 28 05/13/18 21:00 Nasal Cannula 2.0 05/13/18 20:00 97.9 89 21 108/57 (74) 95 97.9 05/13/18 19:34 91 20 98 Nasal Cannula 2.0 28 05/13/18 19:10 Nasal Cannula 2.0 28 05/13/18 19:10 93 Nasal Cannula 2.0 28 05/13/18 19:08 92 20 93 Nasal Cannula 2.0 28 05/13/18 15:55 95.5 89 18 96/71 (79) 100 95.5 05/13/18 15:12 91 20 99 Nasal Cannula 2.0 28 05/13/18 15:03 93 20 94 Nasal Cannula 2.0 28 05/13/18 11:31 96.9 95 18 113/60 (77) 96 96.9 05/13/18 11:14 91 20 98 Nasal Cannula 2.0 28 05/13/18 11:06 94 20 93 Nasal Cannula 2.0 28 Intake and Output 05/13/18 05/14/18 19:00 07:00 Intake Total 895 ml Output Total 0 ml Balance 895 ml 0 ml Intake Oral 840 ml IV Total 55 ml Output Stool Total 0 ml # Voids 1 3 Height (Feet): 5 Height (Inches): 8.00 Weight (Pounds): 180 Objective General Appearance: WD/WN, alert Neck: supple Cardiovascular: normal rate, regular rhythm Respiratory/Chest: crackles/rales, rhonchi - bilaterally Abdomen: normal bowel sounds, non tender, soft, no organomegaly Edema: no edema noted Arm (L), no edema noted Arm (R), no edema noted Leg (L), no edema noted Leg (R), no edema noted Pedal (L), no edema noted Pedal (R), no edema noted Generalized John Hancock MD May 14, 2018 09:18
[2018-05-14] MEDS: Heparin 5000 units/ml inj SUBQ SCH ×2 (09:35→20:42)
--- NOTE | 2018-05-14 10:32 | Diagnostic Imaging Report ---
EXAM: XR Chest, 1 View CLINICAL HISTORY: INFECT TECHNIQUE: Frontal view of the chest. COMPARISON: Chest x-ray dated 05/11/18 FINDINGS: Lungs: Mildly increased interstitial markings. Lungs otherwise appear clear without focal consolidation. Pleural space: Unremarkable. No pneumothorax. Heart: Unremarkable. No cardiomegaly. Mediastinum: Unremarkable. Bones/joints: Unremarkable. IMPRESSION: Mildly increased interstitial markings. This is likely related to chronic senescent changes although differential diagnosis may also include mild bronchitis or interstitial pneumonitis.
[2018-05-14 12:01] VITALS: BP 128/70
[2018-05-14] MEDS: cefTRIAXone 1 GM in D5W 55 ML IVPB SCH (12:36)
[2018-05-14 16:09] VITALS: BP 137/67
--- NOTE | 2018-05-14 18:13 | Pulmonology Progress Note ---
Assessment/Plan Assessment/Plan Assessment/Plan Assessment Status of Existing Problems: Assessed Shortness of breath as comment only - Sumaya Jimenez Additional Assessment Comments: COPD exacerbation, CXR mildly increased interstitial markings, on Oxygen 2L/min NC possible pneumonia hypoxemia respiratory insuffiency BPH hypertension Plan Wean SOLUMEDROL IV ANTIBIOTICS monitor clinically resume meds DVT prophylaxis need to stabilize home oxygen needed impression, plan, and exam edited and reviewed in detail care discussed with RN Note podiatry pending Subjective Allergies: Coded Allergies: PENICILLINS (Verified Allergy, Intermediate, 08/28/16) AZITHROMYCIN (Verified Allergy, Unknown, 08/28/16) Diarrhea Uncoded Allergies: mushrooms (Adverse Reaction, Severe, Shortness of Breath, 11/07/17) Subjective comfortable on oxygen care reviewed Objective Last 24 Hour Vital Signs Date Time Temp Pulse Resp B/P (MAP) Pulse Ox O2 Delivery O2 Flow Rate FiO2 05/12/18 07:36 Nasal Cannula 2.0 05/12/18 04:00 98.8 102 18 102/55 (71) 98 98.8 05/12/18 03:19 95 18 98 Nasal Cannula 4.0 36 05/12/18 03:09 95 18 96 Nasal Cannula 4.0 36 05/11/18 23:24 106 20 98 Nasal Cannula 4.0 36 05/11/18 23:14 105 20 94 Nasal Cannula 4.0 36 05/11/18 19:55 99.5 118 18 137/57 (83) 93 99.5 05/11/18 18:46 115 20 97 Nasal Cannula 4.0 36 05/11/18 18:40 175/92 05/11/18 18:36 112 20 Nasal Cannula 4.0 36 05/11/18 18:35 112 20 95 Nasal Cannula 4.0 36 05/11/18 18:35 Nasal Cannula 4.0 36 05/11/18 18:35 95 Nasal Cannula 4.0 36 05/11/18 18:21 Nasal Cannula 4.0 05/11/18 18:18 Nasal Cannula 4.0 05/11/18 17:13 98.1 118 22 175/92 (119) 95 98.1 05/11/18 16:50 97.9 99 25 121/62 94 Nasal Cannula 2.0 90 97.9 05/11/18 16:50 97.8 99 25 121/62 94 Nasal Cannula 2.0 05/11/18 15:39 99 25 121/62 94 Nasal Cannula 2.0 05/11/18 14:30 97.9 102 21 114/52 94 Nasal Cannula 2.0 97.9 05/11/18 12:51 100 24 Nasal Cannula 90 05/11/18 12:34 97.9 103 20 122/62 85 Room Air 97.9 Intake and Output 05/11/18 05/12/18 19:00 07:00 Intake Total 320 ml Balance 320 ml Intake Oral 320 ml # Voids 2 2 Objective WDWN NAD reduced breath sounds bilaterally with some wheezes [id number] without MRG NABS nontender no HSM no CCE nonfocal Microbiology Date/Time Source Procedure Growth Status 05/11/18 14:47 Nasal Not Otherwise Specified Influenza Types A,B Antigen (TAMAR) - Final Complete Laboratory Tests 05/11/18 12:48: White Blood Count 9.6, Red Blood Count 4.76, Hemoglobin 14.1L, Hematocrit 42.9, Mean Corpuscular Volume 90, Mean Corpuscular Hemoglobin 29.5, Mean Corpuscular Hemoglobin Concent 32.8, Red Cell Distribution Width 11.6, Platelet Count 273, Mean Platelet Volume 5.5L, Neutrophils (%) (Auto) 65.4, Lymphocytes (%) (Auto) 17.7L, Monocytes (%) (Auto) 8.6, Eosinophils (%) (Auto) 7.8H, Basophils (%) ( Auto) 0.5, Sodium Level 136, Potassium Level 3.9, Chloride Level 100, Carbon Dioxide Level 28, Anion Gap 8, Blood Urea Nitrogen 21H, Creatinine 2.0H, Estimat Glomerular Filtration Rate , Glucose Level 107H, Lactic Acid Level 1.00 , Calcium Level 9.1, Total Bilirubin 0.7, Aspartate Amino Transf (AST/SGOT) 15, Alanine Aminotransferase (ALT/SGPT) 28, Alkaline Phosphatase 143H, Total Creatine Kinase 61, Creatine Kinase MB 1.2, Creatine Kinase MB Relative Index 1.9, Troponin I 0.017, Pro-B-Type Natriuretic Peptide 278H, Total Protein 7.4, Albumin 2.6L, Globulin 4.8, Albumin/Globulin Ratio 0.5L 05/11/18 14:47: Urine Color Yellow, Urine Appearance Slightly cloudy, Urine pH 5, Urine Specific [place] 1.020, Urine Protein 2+H, Urine Glucose (UA) Negative, Urine Ketones Negative, Urine Blood 5+H, Urine Nitrite Negative, Urine Bilirubin Negative, Urine Urobilinogen Normal, Urine Leukocyte Esterase 1+H, Urine RBC 60- 80H, Urine WBC 2-4, Urine Squamous Epithelial Cells Occasional, Urine Bacteria Few 05/12/18 05:10: White Blood Count 4.0#L, Red Blood Count 4.78, Hemoglobin 14.3, Hematocrit 43.2 , Mean Corpuscular Volume 90, Mean Corpuscular Hemoglobin 29.8, Mean Corpuscular Hemoglobin Concent 33.0, Red Cell Distribution Width 11.7, Platelet Count 276, Mean Platelet Volume 5.6L, Neutrophils (%) (Auto) 80.8H, Lymphocytes (%) (Auto) 16.4L, Monocytes (%) (Auto) 2.2, Eosinophils (%) (Auto) 0.2, Basophils (%) (Auto) 0.4, Sodium Level 138, Potassium Level 4.9, Chloride Level 100, Carbon Dioxide Level 28, Anion Gap 11, Blood Urea Nitrogen 24H, Creatinine 2.1H, Estimat Glomerular Filtration Rate , Glucose Level 172H, Calcium Level 9.2 05/12/18 07:55: Arterial Blood pH 7.399, Arterial Blood Partial Pressure CO2 37.9, Arterial Blood Partial Pressure O2 57.7L, Arterial Blood HCO3 22.9, Arterial Blood Oxygen Saturation 89.3L, Arterial Blood Base Excess -1.5, Adama Test Positive Current Medications Medications (Trade) Dose Ordered Sig/Kylah Route PRN Reason Start Time Stop Time Status Last Admin Dose Admin Acetaminophen (Tylenol) 650 mg Q4H PRN ORAL Mild Pain/Temp > 100.5 05/11/18 18:00 06/10/18 17:59 Al Hydroxide/Mg Hydroxide (Mylanta) 30 ml Q4H PRN ORAL Abdominal cramps 05/11/18 18:00 06/10/18 17:59 Albuterol/ Ipratropium (Albuterol/ Ipratropium) 3 ml Q4HRT HHN 05/11/18 19:00 05/16/18 18:59 05/12/18 07:50 Ceftriaxone Sodium 1 gm/ Dextrose 55 ml @ 110 mls/hr Q24H IVPB 05/12/18 13:00 05/19/18 12:59 Clonidine HCl (Catapres Tab) 0.1 mg Q4H PRN ORAL SBP > 150 05/11/18 18:00 06/10/18 17:59 Finasteride (Proscar) 5 mg DAILY ORAL 05/12/18 09:00 06/11/18 08:59 Fluticasone/ Vilanterol (Breo Ellipta 200/25) 1 puffs DAILY INH 05/12/18 09:00 06/11/18 08:59 HCTZ/Losartan Potassium (Hyzaar 50-12.5) 1 tab DAILY ORAL 05/11/18 18:00 06/10/18 17:59 05/11/18 18:40 Heparin Sodium (Porcine) (Heparin 5000 units/ml) 5,000 units EVERY 12 HOURS SUBQ 05/11/18 21:00 06/10/18 20:59 05/11/18 20:56 Magnesium Hydroxide (Mom) 30 ml DAILYPRN PRN ORAL Constipation 05/11/18 18:00 06/10/18 17:59 Methylprednisolone Sodium Succinate (Solu-MEDROL) 60 mg EVERY 12 HOURS IVP 05/11/18 21:00 06/10/18 20:59 05/11/18 20:46 Pantoprazole (Protonix) 40 mg DAILY ORAL 05/12/18 09:00 06/11/18 08:59 Tamsulosin HCl (Flomax) 0.4 mg BEDTIME ORAL 05/11/18 21:00 06/10/18 20:59 05/11/18 20:46 Zolpidem Tartrate (Ambien) 5 mg HSPRN PRN ORAL Insomnia 05/11/18 18:00 05/18/18 17:59 Subjective ROS Limited/Unobtainable: No Allergies: Coded Allergies: PENICILLINS (Verified Allergy, Intermediate, 08/28/16) AZITHROMYCIN (Verified Allergy, Unknown, 08/28/16) Diarrhea Uncoded Allergies: mushrooms (Adverse Reaction, Severe, Shortness of Breath, 11/07/17) Objective Last 24 Hour Vital Signs Date Time Temp Pulse Resp B/P (MAP) Pulse Ox O2 Delivery O2 Flow Rate FiO2 05/14/18 16:09 95.7 94 18 137/67 (90) 97 95.7 05/14/18 15:39 96 18 97 Nasal Cannula 2.0 28 05/14/18 15:29 88 18 97 Nasal Cannula 2.0 28 05/14/18 12:01 95.9 86 18 128/70 (89) 97 95.9 05/14/18 11:34 99 20 98 Nasal Cannula 2.0 28 05/14/18 11:24 102 20 84 Room Air 21 05/14/18 09:00 Nasal Cannula 2.0 05/14/18 09:00 145/80 05/14/18 08:22 97.2 109 18 145/80 (101) 95 97.2 05/14/18 08:12 92 18 99 Nasal Cannula 2.0 28 05/14/18 08:02 90 18 96 Nasal Cannula 2.0 28 05/14/18 07:59 96 Nasal Cannula 2.0 28 05/14/18 07:58 Nasal Cannula 2.0 28 05/14/18 04:00 98.0 86 18 110/61 (77) 96 98.0 05/14/18 02:56 96 20 97 Nasal Cannula 2.0 28 05/14/18 02:48 91 20 94 Nasal Cannula 2.0 28 05/14/18 00:00 97.8 100 20 106/60 (75) 94 97.8 05/13/18 22:52 94 20 98 Nasal Cannula 2.0 28 05/13/18 22:44 94 20 93 Nasal Cannula 2.0 28 05/13/18 21:00 Nasal Cannula 2.0 05/13/18 20:00 97.9 89 21 108/57 (74) 95 97.9 05/13/18 19:34 91 20 98 Nasal Cannula 2.0 28 05/13/18 19:10 Nasal Cannula 2.0 28 05/13/18 19:10 93 Nasal Cannula 2.0 28 05/13/18 19:08 92 20 93 Nasal Cannula 2.0 28 Intake and Output 05/13/18 05/14/18 19:00 07:00 Intake Total 895 ml Output Total 0 ml Balance 895 ml 0 ml Intake Oral 840 ml IV Total 55 ml Output Stool Total 0 ml # Voids 1 3 Current Medications Medications (Trade) Dose Ordered Sig/Kylah Route PRN Reason Start Time Stop Time Status Last Admin Dose Admin Acetaminophen (Tylenol) 650 mg Q4H PRN ORAL Mild Pain/Temp > 100.5 05/11/18 18:00 06/10/18 17:59 Al Hydroxide/Mg Hydroxide (Mylanta) 30 ml Q4H PRN ORAL Abdominal cramps 05/11/18 18:00 06/10/18 17:59 Albuterol/ Ipratropium (Albuterol/ Ipratropium) 3 ml Q4HRT HHN 05/11/18 19:00 05/16/18 18:59 05/14/18 15:29 Ceftriaxone Sodium 1 gm/ Dextrose 55 ml @ 110 mls/hr Q24H IVPB 05/12/18 13:00 05/19/18 12:59 05/14/18 12:36 Clonidine HCl (Catapres Tab) 0.1 mg Q4H PRN ORAL SBP > 150 05/11/18 18:00 06/10/18 17:59 Finasteride (Proscar) 5 mg DAILY ORAL 05/12/18 09:00 06/11/18 08:59 05/14/18 09:23 Fluticasone/ Vilanterol (Breo Ellipta 200/25) 1 puffs DAILY INH 05/12/18 09:00 06/11/18 08:59 05/14/18 08:14 HCTZ/Losartan Potassium (Hyzaar 50-12.5) 1 tab DAILY ORAL 05/11/18 18:00 06/10/18 17:59 05/12/18 09:07 Heparin Sodium (Porcine) (Heparin 5000 units/ml) 5,000 units EVERY 12 HOURS SUBQ 05/11/18 21:00 06/10/18 20:59 05/14/18 09:35 Magnesium Hydroxide (Mom) 30 ml DAILYPRN PRN ORAL Constipation 05/11/18 18:00 06/10/18 17:59 05/14/18 09:23 Methylprednisolone Sodium Succinate (Solu-MEDROL) 40 mg EVERY 12 HOURS IVP 05/14/18 09:00 06/13/18 08:59 05/14/18 09:22 Pantoprazole (Protonix) 40 mg DAILY ORAL 05/12/18 09:00 06/11/18 08:59 05/14/18 09:23 Tamsulosin HCl (Flomax) 0.4 mg BEDTIME ORAL 05/11/18 21:00 06/10/18 20:59 05/13/18 20:16 Zolpidem Tartrate (Ambien) 5 mg HSPRN PRN ORAL Insomnia 05/11/18 18:00 05/18/18 17:59 Joel Cardona MD May 14, 2018 18:13
[2018-05-14 20:00] VITALS: BP 135/71
[2018-05-14] MEDS: Tamsulosin 0.4mg cap ORAL SCH (20:36)
[2018-05-15 00:09] VITALS: BP 145/68
--- NOTE | 2018-05-15 02:15 | Consultation ---
DATE OF CONSULTATION: 05/14/2018 INFECTIOUS DISEASE CONSULTATION CONSULTING PHYSICIAN: Danilo Mayfield M.D. This consult is for coverage of Dr. Tipton. PRIMARY ATTENDING PHYSICIAN: Anderson Chase M.D. and John Hancock M.D. REASON FOR CONSULT: COPD exacerbation and pneumonia. HISTORY OF PRESENT ILLNESS: This is an 83-year-old white male, admitted on 05/11/2018 because of shortness of breath, malaise, decrease in O2 saturation, and coughing after a visit to primary care doctor. PAST MEDICAL HISTORY: Significant for COPD, hypertension, BPH, and nicotine abuse. ALLERGIES: Allergic to azithromycin, penicillin, and mushroom. MEDICATIONS: Methylprednisone, ceftriaxone, fluticasone plus vilanterol, Proscar, Protonix, heparin, Flomax, albuterol, ipratropium inhaler, hydrochlorothiazide plus losartan, Tylenol, clonidine, and magnesium hydroxide. SOCIAL HISTORY: , quit smoking 20 years ago, had history of 50-pack year smoking. No drinking. No drug abuse. Originally from [place]. REVIEW OF SYSTEMS: No runny nose. No sore throat. No significant cough today, but has shortness of breath, significantly improved since yesterday, and has constipation. No problem passing urine. PHYSICAL EXAMINATION: GENERAL APPEARANCE: No acute distress. VITAL SIGNS: Temperature 95.9 degrees, pulse 86, and blood pressure 128/70. HEAD AND NECK: Outlook conjunctivae, and has denture. HEART: Regular. Normal rate. LUNGS: Clear. Decreased sounds. ABDOMEN: Soft, nontender. Bowel sounds normal. EXTREMITIES: He has no edema. NEUROLOGIC: Awake, alert, and oriented x3. LABORATORY AND DIAGNOSTIC DATA: WBC 4, hemoglobin 14.3, hematocrit 43.2, and platelets is 276,000. Sodium 138, potassium 2.9, chloride 100, bicarbonate 28, BUN 24, and creatinine 2.1. Influenza A and B were negative. Blood cultures x2 negative. The patient had a CT scan of the chest that showed COPD, in addition there is reticulonodular opacity suggestive of acute atypical pneumonia or non-infectious inflammatory changes. IMPRESSION: 1. COPD exacerbation. 2. Evidence of pneumonia. 3. Hypoxemic respiratory failure. 4. BPH. 5. Chronic kidney disease. RECOMMENDATIONS: We will continue with ceftriaxone. We will follow up the cultures. At the end of my exam, I thank, Dr. Hancock, for involving me in the care of this patient. Danilo Mayfield M.D. DR: NAYANA JOB#: [id number] CC: BARRY
[2018-05-15] MEDS: Albuterol/Ipratropium 3ml neb HHN SCH ×3 (03:06→11:11)
[2018-05-15 03:57] VITALS: BP 125/61
[2018-05-15] MEDS ORDERED: LEVAQUIN500 MG ORAL (07:52)
--- NOTE | 2018-05-15 07:54 | General Progress Note ---
Assessment/Plan Problem List: (1) Bronchitis ICD Codes: J40 - Bronchitis, not specified as acute or chronic SNOMED: 87074795 (2) Hypertension ICD Codes: I10 - Essential (primary) hypertension SNOMED: 49625037 (3) COPD (chronic obstructive pulmonary disease) ICD Codes: J44.9 - Chronic obstructive pulmonary disease, unspecified SNOMED: 01429258 (4) Dyspnea ICD Codes: R06.00 - Dyspnea, unspecified SNOMED: 249935750 (5) Pneumonia ICD Codes: J18.9 - Pneumonia, unspecified organism SNOMED: 042629593 (6) SOB (shortness of breath) ICD Codes: R06.02 - Shortness of breath SNOMED: 666741416 Status: stable, progressing Assessment/Plan po steroid taper at home po abx home o2 dc planning Subjective ROS Limited/Unobtainable: No Constitutional: Reports: no symptoms HEENT: Reports: no symptoms Cardiovascular: Reports: no symptoms Respiratory: Reports: no symptoms Gastrointestinal/Abdominal: Reports: no symptoms Genitourinary: Reports: no symptoms Neurologic/Psychiatric: Reports: no symptoms Endocrine: Reports: no symptoms Hematologic/Lymphatic: Reports: no symptoms Allergies: Coded Allergies: PENICILLINS (Verified Allergy, Intermediate, 08/28/16) AZITHROMYCIN (Verified Allergy, Unknown, 08/28/16) Diarrhea Uncoded Allergies: mushrooms (Adverse Reaction, Severe, Shortness of Breath, 11/07/17) All Systems: reviewed and negative except above Subjective feels better. wants to go home. Objective Last 24 Hour Vital Signs Date Time Temp Pulse Resp B/P (MAP) Pulse Ox O2 Delivery O2 Flow Rate FiO2 05/15/18 07:37 78 16 99 Nasal Cannula 2.0 05/15/18 07:29 Nasal Cannula 2.0 05/15/18 07:29 71 16 96 Nasal Cannula 2.0 28 05/15/18 07:29 28 05/15/18 07:29 96 Nasal Cannula 2.0 05/15/18 03:57 97.2 82 18 125/61 (82) 93 97.2 05/15/18 03:13 74 20 99 Nasal Cannula 2.0 05/15/18 03:06 76 20 97 Nasal Cannula 2.0 05/15/18 00:09 96.8 95 19 145/68 (93) 97 96.8 05/14/18 23:00 94 20 98 Nasal Cannula 2.0 28 05/14/18 22:50 105 20 96 Nasal Cannula 2.0 28 05/14/18 22:17 Nasal Cannula 2.0 05/14/18 20:00 97.3 91 18 135/71 (92) 97 97.3 05/14/18 19:04 89 18 99 Nasal Cannula 2.0 28 05/14/18 18:52 Nasal Cannula 2.0 28 05/14/18 18:52 97 Nasal Cannula 2.0 28 05/14/18 18:50 78 18 97 Nasal Cannula 2.0 28 05/14/18 16:09 95.7 94 18 137/67 (90) 97 95.7 05/14/18 15:39 96 18 97 Nasal Cannula 2.0 28 05/14/18 15:29 88 18 97 Nasal Cannula 2.0 28 05/14/18 12:01 95.9 86 18 128/70 (89) 97 95.9 05/14/18 11:34 99 20 98 Nasal Cannula 2.0 05/14/18 11:24 102 20 84 Room Air 21 05/14/18 09:00 Nasal Cannula 2.0 05/14/18 09:00 145/80 05/14/18 08:22 97.2 109 18 145/80 (101) 95 97.2 05/14/18 08:12 92 18 99 Nasal Cannula 2.0 28 05/14/18 08:02 90 18 96 Nasal Cannula 2.0 28 05/14/18 07:59 96 Nasal Cannula 2.0 05/14/18 07:58 Nasal Cannula 2.0 28 Intake and Output 05/14/18 05/15/18 19:00 07:00 Intake Total 960 ml 120 ml Balance 960 ml 120 ml Intake Oral 960 ml 120 ml # Voids 3 3 Height (Feet): 5 Height (Inches): 8.00 Weight (Pounds): 180 Objective General Appearance: WD/WN, alert Neck: supple Cardiovascular: normal rate, regular rhythm Respiratory/Chest: crackles/rales, rhonchi - bilaterally Abdomen: normal bowel sounds, non tender, soft, no organomegaly Edema: no edema noted Arm (L), no edema noted Arm (R), no edema noted Leg (L), no edema noted Leg (R), no edema noted Pedal (L), no edema noted Pedal (R), no edema noted Generalized John Hancock MD May 15, 2018 07:54
[2018-05-15 08:31] VITALS: BP 128/60
[2018-05-15] MEDS: Heparin 5000 units/ml inj SUBQ SCH (08:31)
[2018-05-15] MEDS: Hyzaar 12.5mg/50mg tab ORAL SCH (09:00)
[2018-05-15] MEDS: Breo Ellipta 200/25mcg-14 dose INH SCH (09:20)
--- NOTE | 2018-05-15 11:13 | Infectious Diseases Prog Note ---
Assessment/Plan Assessment/Plan antibiotics : ceftriaxone, doxycycline A 1. pneumonia 2. COPD 3. hypertension 4. renal failure P 1. continue doxycycline 8 more days po 2. d/c ceftriaxone 3. will follow up cultures 4. patient wants to go home, requesting home oxygen Subjective Constitutional: Denies: fever, chills Respiratory: Reports: shortness of breath - decreased; Denies: dry cough Gastrointestinal/Abdominal: Denies: nausea, vomiting, diarrhea Musculoskeletal: Denies: pain Allergies: Coded Allergies: PENICILLINS (Verified Allergy, Intermediate, 08/28/16) AZITHROMYCIN (Verified Allergy, Unknown, 08/28/16) Diarrhea Uncoded Allergies: mushrooms (Adverse Reaction, Severe, Shortness of Breath, 11/07/17) Objective Vital Signs Last 24 Hour Vital Signs Date Time Temp Pulse Resp B/P (MAP) Pulse Ox O2 Delivery O2 Flow Rate FiO2 05/15/18 09:00 Nasal Cannula 2.0 05/15/18 09:00 128/60 05/15/18 08:31 97.2 87 18 128/60 (82) 91 97.2 05/15/18 07:37 78 16 99 Nasal Cannula 2.0 05/15/18 07:29 Nasal Cannula 2.0 28 05/15/18 07:29 71 16 96 Nasal Cannula 2.0 05/15/18 07:29 28 05/15/18 07:29 96 Nasal Cannula 2.0 05/15/18 03:57 97.2 82 18 125/61 (82) 93 97.2 05/15/18 03:13 74 20 99 Nasal Cannula 2.0 05/15/18 03:06 76 20 97 Nasal Cannula 2.0 05/15/18 00:09 96.8 95 19 145/68 (93) 97 96.8 05/14/18 23:00 94 20 98 Nasal Cannula 2.0 05/14/18 22:50 105 20 96 Nasal Cannula 2.0 05/14/18 22:17 Nasal Cannula 2.0 05/14/18 20:00 97.3 91 18 135/71 (92) 97 97.3 05/14/18 19:04 89 18 99 Nasal Cannula 2.0 05/14/18 18:52 Nasal Cannula 2.0 05/14/18 18:52 97 Nasal Cannula 2.0 05/14/18 18:50 78 18 97 Nasal Cannula 2.0 28 05/14/18 16:09 95.7 94 18 137/67 (90) 97 95.7 05/14/18 15:39 96 18 97 Nasal Cannula 2.0 28 05/14/18 15:29 88 18 97 Nasal Cannula 2.0 28 05/14/18 12:01 95.9 86 18 128/70 (89) 97 95.9 05/14/18 11:34 99 20 98 Nasal Cannula 2.0 28 05/14/18 11:24 102 20 84 Room Air 21 Height (Feet): 5 Height (Inches): 8.00 Weight (Pounds): 180 Respiratory/Chest: lungs clear Cardiovascular: normal rate, regular rhythm, no gallop/murmur Abdomen: soft, non tender Extremities: no edema Current Medications Medications (Trade) Dose Ordered Sig/Kylah Route PRN Reason Start Time Stop Time Status Last Admin Dose Admin Acetaminophen (Tylenol) 650 mg Q4H PRN ORAL Mild Pain/Temp > 100.5 05/11/18 18:00 06/10/18 17:59 Al Hydroxide/Mg Hydroxide (Mylanta) 30 ml Q4H PRN ORAL Abdominal cramps 05/11/18 18:00 06/10/18 17:59 Albuterol/ Ipratropium (Albuterol/ Ipratropium) 3 ml Q4HRT HHN 05/11/18 19:00 05/16/18 18:59 05/15/18 07:28 Ceftriaxone Sodium 1 gm/ Dextrose 55 ml @ 110 mls/hr Q24H IVPB 05/12/18 13:00 05/19/18 12:59 05/14/18 12:36 Clonidine HCl (Catapres Tab) 0.1 mg Q4H PRN ORAL SBP > 150 05/11/18 18:00 06/10/18 17:59 Doxycycline Monohydrate (Vibramycin) 100 mg Q12HR ORAL 05/15/18 09:00 05/21/18 20:59 05/15/18 08:23 Finasteride (Proscar) 5 mg DAILY ORAL 05/12/18 09:00 06/11/18 08:59 05/15/18 08:24 Fluticasone/ Vilanterol (Breo Ellipta 200/25) 1 puffs DAILY INH 05/12/18 09:00 06/11/18 08:59 05/15/18 09:20 HCTZ/Losartan Potassium (Hyzaar 50-12.5) 1 tab DAILY ORAL 05/11/18 18:00 06/10/18 17:59 05/12/18 09:07 Heparin Sodium (Porcine) (Heparin 5000 units/ml) 5,000 units EVERY 12 HOURS SUBQ 05/11/18 21:00 06/10/18 20:59 05/15/18 08:31 Magnesium Hydroxide (Mom) 30 ml DAILYPRN PRN ORAL Constipation 05/11/18 18:00 06/10/18 17:59 05/14/18 09:23 Pantoprazole (Protonix) 40 mg DAILY ORAL 05/12/18 09:00 06/11/18 08:59 05/15/18 08:28 Prednisone (predniSONE) 40 mg DAILY ORAL 05/15/18 09:00 06/14/18 08:59 05/15/18 08:23 Tamsulosin HCl (Flomax) 0.4 mg BEDTIME ORAL 05/11/18 21:00 06/10/18 20:59 05/14/18 20:36 Zolpidem Tartrate (Ambien) 5 mg HSPRN PRN ORAL Insomnia 05/11/18 18:00 05/18/18 17:59 MANE MORA May 15, 2018 11:12
--- NOTE | 2018-05-15 11:35 | Pulmonology Progress Note ---
Assessment/Plan Assessment/Plan Assessment Status of Existing Problems: Assessed Shortness of breath as comment only - Sumaya Jimenez Additional Assessment Comments: COPD exacerbation possible pneumonia hypoxemia respiratory insuffiency BPH hypertension Plan dc home monitor clinically resume meds DVT prophylaxis home oxygen needed impression, plan, and exam edited and reviewed in detail care discussed with RN Subjective Allergies: Coded Allergies: PENICILLINS (Verified Allergy, Intermediate, 08/28/16) AZITHROMYCIN (Verified Allergy, Unknown, 08/28/16) Diarrhea Uncoded Allergies: mushrooms (Adverse Reaction, Severe, Shortness of Breath, 11/07/17) Subjective comfortable much improved d/w Objective Last 24 Hour Vital Signs Date Time Temp Pulse Resp B/P (MAP) Pulse Ox O2 Delivery O2 Flow Rate FiO2 05/15/18 11:21 82 16 99 Nasal Cannula 2.0 05/15/18 11:11 28 05/15/18 11:11 73 16 95 Nasal Cannula 2.0 05/15/18 09:00 Nasal Cannula 2.0 05/15/18 09:00 128/60 05/15/18 08:31 97.2 87 18 128/60 (82) 91 97.2 05/15/18 07:37 78 16 99 Nasal Cannula 2.0 05/15/18 07:29 Nasal Cannula 2.0 05/15/18 07:29 71 16 96 Nasal Cannula 2.0 05/15/18 07:29 05/15/18 07:29 96 Nasal Cannula 2.0 05/15/18 03:57 97.2 82 18 125/61 (82) 93 97.2 05/15/18 03:13 74 20 99 Nasal Cannula 2.0 05/15/18 03:06 76 20 97 Nasal Cannula 2.0 05/15/18 00:09 96.8 95 19 145/68 (93) 97 96.8 05/14/18 23:00 94 20 98 Nasal Cannula 2.0 05/14/18 22:50 105 20 96 Nasal Cannula 2.0 05/14/18 22:17 Nasal Cannula 2.0 05/14/18 20:00 97.3 91 18 135/71 (92) 97 97.3 05/14/18 19:04 89 18 99 Nasal Cannula 2.0 05/14/18 18:52 Nasal Cannula 2.0 05/14/18 18:52 97 Nasal Cannula 2.0 28 05/14/18 18:50 78 18 97 Nasal Cannula 2.0 28 05/14/18 16:09 95.7 94 18 137/67 (90) 97 95.7 05/14/18 15:39 96 18 97 Nasal Cannula 2.0 28 05/14/18 15:29 88 18 97 Nasal Cannula 2.0 28 05/14/18 12:01 95.9 86 18 128/70 (89) 97 95.9 Intake and Output 05/14/18 05/15/18 19:00 07:00 Intake Total 960 ml 120 ml Balance 960 ml 120 ml Intake Oral 960 ml 120 ml # Voids 3 3 Objective WDWN NAD reduced breath sounds bilaterally without rhonchi or wheeze [id number] without MRG NABS nontender no HSM no CCE nonfocal alert and oriented Current Medications Medications (Trade) Dose Ordered Sig/Kylah Route PRN Reason Start Time Stop Time Status Last Admin Dose Admin Acetaminophen (Tylenol) 650 mg Q4H PRN ORAL Mild Pain/Temp > 100.5 05/11/18 18:00 06/10/18 17:59 Al Hydroxide/Mg Hydroxide (Mylanta) 30 ml Q4H PRN ORAL Abdominal cramps 05/11/18 18:00 06/10/18 17:59 Albuterol/ Ipratropium (Albuterol/ Ipratropium) 3 ml Q4HRT HHN 05/11/18 19:00 05/16/18 18:59 05/15/18 11:11 Clonidine HCl (Catapres Tab) 0.1 mg Q4H PRN ORAL SBP > 150 05/11/18 18:00 06/10/18 17:59 Doxycycline Monohydrate (Vibramycin) 100 mg Q12HR ORAL 05/15/18 09:00 05/21/18 20:59 05/15/18 08:23 Finasteride (Proscar) 5 mg DAILY ORAL 05/12/18 09:00 06/11/18 08:59 05/15/18 08:24 Fluticasone/ Vilanterol (Breo Ellipta 200/25) 1 puffs DAILY INH 05/12/18 09:00 06/11/18 08:59 8/27/18 09:20 HCTZ/Losartan Potassium (Hyzaar 50-12.5) 1 tab DAILY ORAL 05/11/18 18:00 06/10/18 17:59 05/12/18 09:07 Heparin Sodium (Porcine) (Heparin 5000 units/ml) 5,000 units EVERY 12 HOURS SUBQ 05/11/18 21:00 06/10/18 20:59 05/15/18 08:31 Magnesium Hydroxide (Mom) 30 ml DAILYPRN PRN ORAL Constipation 05/11/18 18:00 06/10/18 17:59 05/14/18 09:23 Pantoprazole (Protonix) 40 mg DAILY ORAL 05/12/18 09:00 06/11/18 08:59 05/15/18 08:28 Prednisone (predniSONE) 40 mg DAILY ORAL 05/15/18 09:00 06/14/18 08:59 05/15/18 08:23 Tamsulosin HCl (Flomax) 0.4 mg BEDTIME ORAL 05/11/18 21:00 06/10/18 20:59 05/14/18 20:36 Zolpidem Tartrate (Ambien) 5 mg HSPRN PRN ORAL Insomnia 05/11/18 18:00 05/18/18 17:59 Anderson Chase MD May 15, 2018 11:35
[2018-05-15 12:22] VITALS: BP 132/72
--- NOTE | 2018-05-15 18:00 | Consultation ---
DATE OF CONSULTATION: 05/15/2018 PODIATRIC CONSULTATION CONSULTING PHYSICIAN: Mirta Su D.P.M. REFERRING PHYSICIAN: John Hancock M.D. REASON FOR CONSULTATION: Toenail pain. HISTORY OF PRESENT ILLNESS: This is an 83-year-old male admitted to [facility] [place] due to shortness of breath and has been receiving treatment for pneumonia. The patient complains of pain to his toenails as well as burning pain to the ball of his right foot. The patient denies any history of trauma or injury. The patient describes difficulty reaching his toes. The patient describes burning pain in his right foot on occasion as well as mild numbness to the right versus left foot, but denies history of diabetes. PAST MEDICAL HISTORY: Significant for COPD, hypertension, and BPH. ALLERGIES: Include Azithromycin, penicillin, and mushrooms. MEDICATIONS: His current medications are methylprednisone, ceftriaxone, fluticasone plus vilanterol, Proscar, Protonix, heparin, Flomax, albuterol, ipratropium, hydrochlorothiazide plus losartan, Tylenol, clonidine, and magnesium hydroxide. LOWER EXTREMITY PHYSICAL EXAMINATION: VITAL SIGNS: His vital signs are currently blood pressure 128/60, pulse 87, respirations 18, and temperature 97.2 degrees. VASCULAR: His dorsalis pedis and posterior tibialis arteries are palpable 2/4 bilaterally. Capillary refill time of less than 3 seconds. NEUROLOGICAL: His light touch is intact, although there is diminished sensation appreciated to the right versus left sub metatarsal heads. Proprioception is intact to bilateral feet. MUSCULOSKELETAL: Foot and ankle range of motion is within normal limits without pain or discomfort appreciated to bilateral feet and ankles. Muscle strength is 5/5 in all 4 quadrants, bilateral feet. There is tenderness to palpation of all digits. There is negative Tinel's appreciated as well as negative Tera's noted to bilateral feet. DERMATOLOGIC: The patient has elongated, incurvated, dystrophic nails x9. There appears to be a broken off toenail that is involving the left second toe with minimal heme discharge, but no surrounding edema, erythema, warmth, fluctuance, or discharge and no pain out of proportion on palpation. There is no gross edema, erythema, or warmth appreciated to bilateral feet including the sub metatarsal heads of the right versus left foot. There are minimal hyperkeratotic lesions noted to the distal digits of the bilateral feet x10 toes, but there are no other hyperkeratotic lesions, abrasions, or pre-ulcerations noted to bilateral feet. There are no interspace macerations noted to bilateral feet. IMPRESSION: Onychomycosis and symptomatic intractable plantar keratomas, possible early neuropathy and current COPD exacerbation with evidence of pneumonia. PLAN: Discussed foot care guidelines at length with patient and his who was at bedside. The patient consented to and tolerated well mechanical debridement of all nails and lesions, partial-thickness done with immediate relief noted. Recommend shoe and activity modifications and range of motion exercises as well as daily foot checks. Recommend follow up with his primary, Dr. Chase for workup of possible early neuropathy. Recommend follow-up on an outpatient basis at the patient's convenience. Thank you, Dr. Hancock, for this consultation. Vazquez HawkinsPNadineM. DR: EFRAIN JOB#: [id number] CC: BARRY
--- NOTE | 2018-05-16 09:34 | Discharge Summary ---
Discharge Summary Discharge Summary _ DATE OF ADMISSION: 05/11/2018 DATE OF DISCHARGE: 05/15/2018 REASON FOR ADMISSION: 83 years old male with past medical history of COPD ,hypertension, BPH, presented with worsening shortness of breath for the last 2 weeks. Patient reported cough and congestion. Cough was productive with yellow to green color of phlegm. No fever, no chills. No chest pain or shortness of breath. Patient was tachycardic and hypoxemic. Pulse oximetry on room air was 85%. Patient required placement on supplemental oxygen. Laboratory workup revealed no leukocytosis, stable hemoglobin and hematocrit. BUN 21, creatinine 2.0. Glucose 107. Troponin negative. pro BNP 278. EKG revealed sinus rhythm,, no acute ischemic changes. Chest x-ray revealed interval development of bilateral interstitial opacification/edema. Possibly fluid overload versus interstitial pneumonia. Urinalysis without evidence of UTI. Patient admitted with diagnosis of COPD exacerbation ,probable pneumonia , hypoxemia ,respiratory insufficiency, BPH ,hypertension. CONSULTANTS: pulmonary Dr. Chase ID specialist Dr. Tipton car shakeout operator Dr. Su HOSPITAL COURSE: Patient admitted. Patient started on supplemental oxygen which titrated to keep pulse oximetry above 92%. Pulmonary toiler with bronchodilator and inhaler with steroid were provided. Patient started on IV steroids , which gradually tapered and changed to oral prior to discharge. Patient started on empiric antibiotic. Antitussive provided as needed. 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 Bilateral reticular nodular opacities, reflecting acute atypical pneumonia, noninfectious inflammatory changes versus recent post inflammatory changes. ABG on the next day on room air showed hypoxemia with O2 sat of 89%. Influenza screen was negative. Blood cultures were negative. ID specialist clsoely followed. Antibiotic changed to oral prior to discharge. Blood pressure was managed with combination of hydrochlorothiazide and Cozaar and remained stable. Renal parameters and electrolytes were closely monitored. Nephrotoxins were avoided. Creatinine remained on the baseline, likely chronic renal insufficiency. Flomax and Proscar were continued. GI prophylaxis provided. Supportive care provided. Pain management was addressed as needed. Bowel regimen instituted. Supervisor Seaming seen and evaluated patient. Patient subsequently undergone mechanical debridement of all nails and lesions. Supervisor Seaming recommended shoe and activity modification along with range of motion exercise and daily foot checks. Supervisor Seaming also recommended to follow-up with primary care provider for workup for possible early neuropathy. Follow-up with car shakeout operator as outpatient was recommended as well. Patient clinically improved and was ready for discharge home. Pulse oximetry prior to discharge on room air 92-92% , no signs of respiratory distress. Patient was provided with prescription for oral steroids and antibiotic to complete the course. FINAL DIAGNOSES: COPD exacerbation Pneumonia Hypoxemia Respiratory insufficiency BPH Hypertension Onychomycosis Symptomatic intractable plantar keratomas Possible early neuropathy DISCHARGE MEDICATIONS: See Medication Reconciliation list. DISCHARGE INSTRUCTIONS: Patient was discharged home Follow up with primary care provider in one week. Recommended follow up with car shakeout operator as outpatient. I have been assigned to dictate discharge summary for this account. I was not involved in the patient's management. Rosibel Moreira NP May 16, 2018 09:34
--- NOTE | 2018-05-17 16:34 | Cardiology Report ---
APPROVED REPORT EKG Measurement Heart [id number] SD [id number] [id number] Normal sinus rhythm Rightward axis Pulmonary disease pattern Septal infarct, age undetermined Abnormal ECG
== END 2018-05-15 13:15 | disposition home or self-care (01) | DRG 190 ==
LOC: EMR 14:00 → 4W 14:06 → EDBEDREQ 15:31
DX: J44.0 Chronic obstructive pulmonary disease with (acute) lower respiratory infection (principal); J18.9 Pneumonia, unspecified organism; J96.91 Respiratory failure, unspecified with hypoxia; J44.1 Chronic obstructive pulmonary disease with (acute) exacerbation; R09.02 Hypoxemia; N40.0 Benign prostatic hyperplasia without lower urinary tract symptoms; B35.1 Tinea unguium; Z88.0 Allergy status to penicillin; Z87.891 Personal history of nicotine dependence; I12.9 Hypertensive chronic kidney disease with stage 1 through stage 4 chronic kidney disease, or unspecified chronic kidney disease; N18.9 Chronic kidney disease, unspecified; Z88.1 Allergy status to other antibiotic agents; L85.1 Acquired keratosis [keratoderma] palmaris et plantaris; J40 Bronchitis, not specified as acute or chronic; G62.9 Polyneuropathy, unspecified
CPT/HCPCS: 36415; 36600; 71045; 71250; 80048; 80053; 81003; 82550; 82553; 82803; 83605; 83880; 84484; 85025; 86710; 87040; 93005; 94640; 94664; 94760; 99285; J7620

== ENCOUNTER 2019-07-12 13:11 | Inpatient (IN) | payer MEDICARE, OTHER ==
[~2019-07-12] VITALS: Ht 167.6 cm; Wt 61.7 kg
[~2019-07-12 13:11] MED LIST changes: +LEVAQUIN500 MG ORAL
[2019-07-12 16:08] VITALS: BP 134/76
[2019-07-12 17:30] LABS: BASOPHILS % (AUTO) 0.8 % (0.0-2.0); EOSINOPHILS % (AUTO) 0.4 % (0.0-3.0); HEMOGLOBIN 13.1 G/DL (14.2-18.0); MEAN CORPUSCULAR VOLUME 91 FL (80-99); MONOCYTES % (AUTO) 6.9 % (1.0-10.0); PLATELET COUNT 303 K/UL (150-450); RED CELL DISTRIBUTION WIDTH 11.5 % (11.6-14.8); WHITE BLOOD COUNT 10.8 K/UL (4.8-10.8)
[2019-07-12 17:54] LABS: ANION GAP 12 mmol/L (5-15); BLOOD UREA NITROGEN 20 mg/dL (7-18); CALCIUM 9.8 MG/DL (8.5-10.1); CARBON DIOXIDE 27 MMOL/L (21-32); CHLORIDE 104 MMOL/L (98-107); CREATININE 1.7 MG/DL (0.55-1.30); POTASSIUM 4.4 MMOL/L (3.5-5.1); SODIUM 143 MMOL/L (136-145)
[2019-07-12] MEDS ORDERED: Vancomycin 1.25gm/NS Premix q24h IVPB SCH (18:00)
[2019-07-12] MEDS ORDERED: Levofloxacin 500mg tab ORAL SCH (18:06)
[2019-07-12] MEDS: Mesalamine 400mg cap ORAL SCH (18:25)
[2019-07-12] MEDS: Albuterol ud Inhalation HHN SCH ×2 (19:29→23:21)
--- NOTE | 2019-07-12 19:55 | NUR ---
NURSE NOTES: Pt received from outgoing nurse GONZALO Keating in bed, awake and verbal. Pt speaks Bruneian and some [place]er. Pt is on 2l n/c, breathing fine. RT by bedside, giving breathing treatment. No acute distress noted. Vitals stable. Pt's is by bedside and able to translate.Pt is on IV antibiotics. Pt is instructed to collect sputum for lab. Pt is ambulatory. Fall precaution in place, bed locked low in position,side rail; sup and call light within reach. Pt will be monitored.
[2019-07-12 20:00] VITALS: BP 125/64
[2019-07-12] MEDS: Solu-MEDROL 125mg Inj IVP SCH (20:24)
[2019-07-12] MEDS: Heparin 5000 units/ml inj SUBQ SCH (20:30)
[2019-07-13] VITALS: BP 123/64
--- NOTE | 2019-07-13 01:25 | NUR ---
NURSE NOTES: Pt is in bed, asleep. No SOB or acute distress noted. Vitals stable.
[2019-07-13] MEDS: Albuterol ud Inhalation HHN SCH ×6 (03:15→22:39)
[2019-07-13 04:00] VITALS: BP 109/63
--- NOTE | 2019-07-13 07:15 | NUR ---
HAND-OFF: Report given to GONZALO Jean-Baptiste.Pt is in bed asleep.
[2019-07-13 08:00] VITALS: BP 116/63
--- NOTE | 2019-07-13 08:35 | NUR ---
NURSE NOTES: pt awake, A/O x 4, calm and cooperative. no SOB noted, mild nonproductive cough. pts on RT PRN/ 2L O2 via NC, sat 93-94, pts on Abx. call light within reach, bed alarm, bed in low position, family at bedside. fall precaution maintained. will continue to monitor.
[2019-07-13] MEDS: Mesalamine 400mg cap ORAL SCH ×2 (08:55→17:32)
[2019-07-13] MEDS: Solu-MEDROL 125mg Inj IVP SCH ×2 (08:56→21:10)
[2019-07-13] MEDS: Heparin 5000 units/ml inj SUBQ SCH ×2 (09:00→21:11)
[2019-07-13] MEDS: Breo Ellipta 200/25mcg-14 dose INH SCH (09:24)
[2019-07-13] MEDS ORDERED: Vancomycin 1gm in D5W 275ml IVPB ONE (10:00)
[2019-07-13] MEDS: Losartan 25mg tab ORAL SCH (10:00)
--- NOTE | 2019-07-13 10:52 | NUR ---
RESPIRATORY NOTE: MDI Breo and Spiriva given at 0924. I scanned the med and save it but only Spiriva was save to eMar. Pt's spouse at bedside and witnessed medications given. Manually administered med MDI Breo again at 1052 to eMar.
[2019-07-13 12:00] VITALS: BP 104/53
[2019-07-13 16:00] VITALS: BP 106/48
--- NOTE | 2019-07-13 16:15 | History and Physical Report ---
DATE OF ADMISSION: 07/12/2019 REASON FOR ADMISSION: Pneumonia and shortness of breath. HISTORY OF PRESENT ILLNESS: This is an 84-year-old male, well known to me. The patient presented with evidence of pneumonia by x-ray. The patient also with shortness of breath and sputum production. The patient was given intramuscular antibiotics and nebulized therapy in the office and was admitted for ongoing care and management. The patient overall feels much better and significantly improved. The patient denies cough, but does have mild congestion and mild shortness of breath. The patient events have been ongoing for several days and worsening severity. Noted fevers at home up to 100.5 per 's description. The patient is well cared for by his . PAST MEDICAL HISTORY: Notable for hypertension, reflux disease, longstanding history of brittle asthma, history of pneumonia, history of ulcerative colitis, benign prostatic hyperplasia. MEDICATIONS: Reviewed. ALLERGIES: Reviewed. SOCIAL HISTORY: Lives with his . Retired. [place]. Nonsmoker and nondrinker at present. REVIEW OF SYSTEMS: All 10 points reviewed and otherwise negative. PHYSICAL EXAMINATION: GENERAL: Elderly male, comfortable at present. VITAL SIGNS: Pulse 105, respirations 19, blood pressure 116/63, temperature 98.6, and saturation 93%. HEENT: Negative. Extraocular movements are grossly intact. Oropharynx moist. NECK: Supple. LUNGS: With improved breath sounds, but somewhat reduced. CARDIAC: S1, S2. Slightly tachycardic without murmurs, rubs, gallops. ABDOMEN: Soft, nontender, nondistended. EXTREMITIES: No cyanosis, clubbing, or edema. NEUROLOGIC: Grossly nonfocal. LABORATORY DATA: Reviewed. BUN 20, creatinine 1.7, otherwise electrolytes normal. White count 10.8, hematocrit 39, platelets of 303,000. IMPRESSION: 1. Patchy pneumonia, right base. 2. Asthma with acute exacerbation. 3. Shortness of breath. 4. Respiratory distress. 5. Evidence of chronic renal impairment. 6. Benign prostatic hyperplasia. RECOMMENDATIONS: 1. Supportive care. 2. Resume home medications. 3. We will add Spiriva to continue. 4. Nebulized therapy to continue. 5. IV Solu-Medrol and antibiotics. 6. Monitor clinically and recommend. 7. Plan for discharge planning in the next 1 to 2 days if improved and overall imaging as well is improved. Anderson Chase M.D. DR: GOKUL JOB#: [id number] CC: BARRY
--- NOTE | 2019-07-13 19:12 | NUR ---
HAND-OFF: Report given to ADRIANA SÁNCHEZ.
--- NOTE | 2019-07-13 19:18 | NUR ---
HAND-OFF: Report given to Ninoska SÁNCHEZ.
--- NOTE | 2019-07-13 19:41 | NUR ---
NURSE NOTES: Pt is in bed, awake and verbal. Pt speaks Senegalese and some Syriac. Pt is on room air now , breathing fine. No acute distress noted. Vitals stable. Pt's is by bedside and able to translate. Pt is instructed to collect sputum for lab. Pt is ambulatory. Fall precaution in place, bed locked low in position,side rails up and call light within reach. Pt will be monitored.
[2019-07-13 20:00] VITALS: BP 121/64
[2019-07-13] MEDS ORDERED: Tamsulosin 0.4mg cap ORAL SCH (21:00)
[2019-07-14] MEDS: Albuterol ud Inhalation HHN SCH ×3 (03:00→12:00)
[2019-07-14 04:00] VITALS: BP 125/63
--- NOTE | 2019-07-14 06:22 | NUR ---
NURSE NOTES: Pt is in bed, asleep. No acute distress noted. Pt's in room with patient.
--- NOTE | 2019-07-14 07:20 | NUR ---
HAND-OFF: Report given to Bijal Gilliam RN.Pt wants to go home. No SOB or acute distress noted.
--- NOTE | 2019-07-14 07:49 | NUR ---
NURSE NOTES: received patient in bed, patient awake alert oriented x4, ambulatory with steady gait, speaks Ghanaian and some Slovak. Fall precaution in place, bed locked low in position,side rails up and call light within reach. Pt will be monitored christopher yepez
[2019-07-14 08:05] VITALS: BP 116/64
[2019-07-14] MEDS: Breo Ellipta 200/25mcg-14 dose INH SCH (08:20)
[2019-07-14] MEDS: Mesalamine 400mg cap ORAL SCH (08:29)
[2019-07-14] MEDS: Solu-MEDROL 125mg Inj IVP SCH (08:29)
[2019-07-14] MEDS: Losartan 25mg tab ORAL SCH (08:33)
[2019-07-14] MEDS: Heparin 5000 units/ml inj SUBQ SCH (08:34)
--- NOTE | 2019-07-14 08:42 | General Progress Note ---
Assessment/Plan Problem List: (1) PNA (pneumonia) ICD Codes: J18.9 - Pneumonia, unspecified organism SNOMED: 754122401 (2) Fever ICD Codes: R50.9 - Fever, unspecified SNOMED: 449693817 (3) COPD (chronic obstructive pulmonary disease) ICD Codes: J44.9 - Chronic obstructive pulmonary disease, unspecified SNOMED: 75419210 (4) SOB (shortness of breath) ICD Codes: R06.02 - Shortness of breath SNOMED: 758902580 (5) Bronchitis ICD Codes: J40 - Bronchitis, not specified as acute or chronic SNOMED: 55933044 (6) Hypertension ICD Codes: I10 - Essential (primary) hypertension SNOMED: 61722374 Status: stable Assessment/Plan: iv abx steroids resp rx follow up cultures monitor cxr Subjective Date patient seen: Jul 13, 2019 ROS Limited/Unobtainable: No Constitutional: Reports: fever, malaise, weakness HEENT: Reports: no symptoms Cardiovascular: Reports: no symptoms Respiratory: Reports: cough, SOB with excertion Gastrointestinal/Abdominal: Reports: no symptoms Genitourinary: Reports: no symptoms Neurologic/Psychiatric: Reports: no symptoms Endocrine: Reports: no symptoms Hematologic/Lymphatic: Reports: no symptoms Allergies: Coded Allergies: PENICILLINS (Verified Allergy, Intermediate, 08/28/16) AZITHROMYCIN (Verified Allergy, Unknown, 08/28/16) Diarrhea Uncoded Allergies: mushrooms (Adverse Reaction, Severe, Shortness of Breath, 11/07/17) All Systems: reviewed and negative except above Subjective admitted with fever and cough. +infiltrate on cxr. no chest pain stable sob. Objective Last 24 Hour Vital Signs Date Time Temp Pulse Resp B/P (MAP) Pulse Ox O2 Delivery O2 Flow Rate FiO2 07/14/19 08:33 125/63 07/14/19 08:20 84 18 98 Room Air 21 80 16 94 07/14/19 08:06 Room Air 07/14/19 04:00 97.4 94 18 125/63 (83) 96 07/13/19 22:42 96 16 96 Room Air 21 94 18 92 07/13/19 21:00 Room Air 07/13/19 20:00 96.8 100 18 121/64 (83) 96 07/13/19 18:59 94 18 98 Room Air 21 88 16 95 07/13/19 16:00 98.8 102 19 106/48 (67) 92 07/13/19 14:45 92 18 97 Room Air 21 90 17 93 07/13/19 12:00 97.8 101 19 104/53 (70) 93 07/13/19 11:01 96 16 98 Room Air 21 96 16 93 07/13/19 10:00 116/63 07/13/19 09:25 104 18 94 Room Air 21 07/13/19 09:24 103 18 93 Room Air 21 07/13/19 09:00 Room Air Intake and Output 07/13/19 07/14/19 19:00 07:00 Intake Total 240 ml 240 ml Output Total 950 ml Balance 240 ml -710 ml Intake Oral 240 ml 240 ml Output Urine Total 950 ml # Voids 2 2 # Bowel Movements 1 1 Laboratory Tests 07/14/19 06:55: Blood Urea Nitrogen [Pending], Creatinine [Pending], Estimat Glomerular Filtration Rate [Pending], Random Vancomycin Level [Pending] Height (Feet): 5 Height (Inches): 6.00 Weight (Pounds): 136 General Appearance: WD/WN, alert Neck: supple Cardiovascular: regular rhythm Respiratory/Chest: chest wall non-tender, lungs clear, normal breath sounds, no respiratory distress Abdomen: normal bowel sounds, non tender, soft, no organomegaly Edema: no edema noted Arm (L), no edema noted Arm (R), no edema noted Leg (L), no edema noted Leg (R), no edema noted Pedal (L), no edema noted Pedal (R), no edema noted Generalized John Hancock MD Jul 14, 2019 08:42
--- NOTE | 2019-07-14 08:45 | General Progress Note ---
Assessment/Plan Problem List: (1) PNA (pneumonia) ICD Codes: J18.9 - Pneumonia, unspecified organism SNOMED: 582766978 (2) Fever ICD Codes: R50.9 - Fever, unspecified SNOMED: 450124506 (3) COPD (chronic obstructive pulmonary disease) ICD Codes: J44.9 - Chronic obstructive pulmonary disease, unspecified SNOMED: 14579048 (4) SOB (shortness of breath) ICD Codes: R06.02 - Shortness of breath SNOMED: 367019581 (5) Bronchitis ICD Codes: J40 - Bronchitis, not specified as acute or chronic SNOMED: 91029445 (6) Hypertension ICD Codes: I10 - Essential (primary) hypertension SNOMED: 63793341 Status: stable Assessment/Plan: abx steroids- wean per pulm resp rx follow up cultures monitor cxr ?dc planning per pulm Subjective ROS Limited/Unobtainable: No Constitutional: Reports: malaise, weakness HEENT: Reports: no symptoms Cardiovascular: Reports: no symptoms Gastrointestinal/Abdominal: Reports: no symptoms Genitourinary: Reports: no symptoms Neurologic/Psychiatric: Reports: no symptoms Endocrine: Reports: no symptoms Hematologic/Lymphatic: Reports: no symptoms Allergies: Coded Allergies: PENICILLINS (Verified Allergy, Intermediate, 08/28/16) AZITHROMYCIN (Verified Allergy, Unknown, 08/28/16) Diarrhea Uncoded Allergies: mushrooms (Adverse Reaction, Severe, Shortness of Breath, 11/07/17) All Systems: reviewed and negative except above Subjective "better" today. no fevers. sob better. wants to go home Objective Last 24 Hour Vital Signs Date Time Temp Pulse Resp B/P (MAP) Pulse Ox O2 Delivery O2 Flow Rate FiO2 07/14/19 08:33 125/63 07/14/19 08:20 84 18 98 Room Air 21 80 16 94 07/14/19 08:06 Room Air 07/14/19 04:00 97.4 94 18 125/63 (83) 96 07/13/19 22:42 96 16 96 Room Air 21 94 18 92 07/13/19 21:00 Room Air 07/13/19 20:00 96.8 100 18 121/64 (83) 96 07/13/19 18:59 94 18 98 Room Air 21 88 16 95 07/13/19 16:00 98.8 102 19 106/48 (67) 92 07/13/19 14:45 92 18 97 Room Air 21 90 17 93 07/13/19 12:00 97.8 101 19 104/53 (70) 93 07/13/19 11:01 96 16 98 Room Air 21 96 16 93 07/13/19 10:00 116/63 07/13/19 09:25 104 18 94 Room Air 21 07/13/19 09:24 103 18 93 Room Air 21 07/13/19 09:00 Room Air Intake and Output 07/13/19 07/14/19 19:00 07:00 Intake Total 240 ml 240 ml Output Total 950 ml Balance 240 ml -710 ml Intake Oral 240 ml 240 ml Output Urine Total 950 ml # Voids 2 2 # Bowel Movements 1 1 Laboratory Tests 07/14/19 06:55: Blood Urea Nitrogen [Pending], Creatinine [Pending], Estimat Glomerular Filtration Rate [Pending], Random Vancomycin Level [Pending] Height (Feet): 5 Height (Inches): 6.00 Weight (Pounds): 136 General Appearance: WD/WN, alert Cardiovascular: normal rate, regular rhythm Respiratory/Chest: lungs clear, normal breath sounds, no respiratory distress, no accessory muscle use Abdomen: normal bowel sounds, non tender, soft, no organomegaly Edema: no edema noted Arm (L), no edema noted Arm (R), no edema noted Leg (L), no edema noted Leg (R), no edema noted Pedal (L), no edema noted Pedal (R), no edema noted Generalized Skin: normal pigmentation John Hancock MD Jul 14, 2019 08:45
--- NOTE | 2019-07-14 09:00 | Pulmonology Progress Note ---
Assessment/Plan Assessment/Plan Patchy pneumonia Asthma respiratory insufficiency shortness of breath fevers PLAN dc home po antibiotics has levaquin- complete respiratory long term health follow up next week for recheck and imaging impression, plan, and exam edited and reviewed in detail care discussed with RN Subjective Allergies: Coded Allergies: PENICILLINS (Verified Allergy, Intermediate, 08/28/16) AZITHROMYCIN (Verified Allergy, Unknown, 08/28/16) Diarrhea Uncoded Allergies: mushrooms (Adverse Reaction, Severe, Shortness of Breath, 11/07/17) Subjective doing well no cough or fever Objective Last 24 Hour Vital Signs Date Time Temp Pulse Resp B/P (MAP) Pulse Ox O2 Delivery O2 Flow Rate FiO2 07/14/19 08:33 125/63 07/14/19 08:20 84 18 98 Room Air 21 80 16 94 07/14/19 08:06 Room Air 07/14/19 08:05 97.6 79 18 116/64 (81) 94 07/14/19 04:00 97.4 94 18 125/63 (83) 96 07/13/19 22:42 96 16 96 Room Air 21 94 18 92 07/13/19 21:00 Room Air 07/13/19 20:00 96.8 100 18 121/64 (83) 96 07/13/19 18:59 94 18 98 Room Air 21 88 16 95 07/13/19 16:00 98.8 102 19 106/48 (67) 92 07/13/19 14:45 92 18 97 Room Air 21 90 17 93 07/13/19 12:00 97.8 101 19 104/53 (70) 93 07/13/19 11:01 96 16 98 Room Air 21 96 16 93 07/13/19 10:00 116/63 07/13/19 09:25 104 18 94 Room Air 21 07/13/19 09:24 103 18 93 Room Air 21 07/13/19 09:00 Room Air Intake and Output 07/13/19 07/14/19 19:00 07:00 Intake Total 240 ml 240 ml Output Total 950 ml Balance 240 ml -710 ml Intake Oral 240 ml 240 ml Output Urine Total 950 ml # Voids 2 2 # Bowel Movements 1 1 Objective WDWN NAD reduced breath sounds bilaterally without rhonchi or wheeze [id number] without MRG NABS nontender no HSM no CCE nonfocal Laboratory Tests 07/14/19 06:55: Blood Urea Nitrogen [Pending], Creatinine [Pending], Estimat Glomerular Filtration Rate [Pending], Random Vancomycin Level [Pending] Current Medications Medications (Trade) Dose Ordered Sig/Kylah Route PRN Reason Start Time Stop Time Status Last Admin Dose Admin Acetaminophen (Tylenol) 650 mg Q4H PRN ORAL Mild Pain/Temp > 100.5 07/12/19 15:30 08/11/19 15:29 Al Hydroxide/Mg Hydroxide (Mylanta) 30 ml Q4H PRN ORAL indigestion 07/12/19 15:30 08/11/19 15:29 Albuterol Sulfate (Proventil) 2.5 mg Q4HRT HHN 07/12/19 19:00 07/17/19 18:59 07/14/19 08:10 Finasteride (Proscar) 5 mg DAILY ORAL 07/13/19 09:00 08/12/19 08:59 07/14/19 08:29 Fluticasone/ Vilanterol (Breo Ellipta 200/25) 1 puffs DAILY INH 07/13/19 10:00 08/12/19 09:59 07/14/19 08:20 Heparin Sodium (Porcine) (Heparin 5000 units/ml) 5,000 units EVERY 12 HOURS SUBQ 07/12/19 21:00 08/11/19 20:59 07/14/19 08:34 Levofloxacin (Levaquin) 250 mg DAILY ORAL 07/13/19 09:00 07/18/19 09:01 07/14/19 08:28 Losartan Potassium (Cozaar) 100 mg DAILY ORAL 07/13/19 10:00 08/12/19 09:59 Mesalamine (Asacol) 800 mg BID ORAL 07/12/19 18:00 08/11/19 17:59 07/14/19 08:29 Methylprednisolone Sodium Succinate (Solu-MEDROL) 60 mg EVERY 12 HOURS IVP 07/12/19 21:00 08/11/19 20:59 07/14/19 08:29 Pantoprazole (Protonix) 40 mg DAILY ORAL 07/13/19 09:00 08/12/19 08:59 07/14/19 08:29 Tamsulosin HCl (Flomax) 0.4 mg BEDTIME ORAL 07/13/19 21:00 08/12/19 20:59 07/13/19 21:10 Tiotropium Ida (Spiriva Inhaler) 1 puff DAILY INH 07/13/19 10:00 08/12/19 09:59 07/14/19 08:21 Vancomycin HCl (Vanco rx to dose) 1 ea DAILY PRN MISC Per rx protocol 07/12/19 15:30 08/11/19 15:29 Anderson Chase MD Jul 14, 2019 09:00
--- NOTE | 2019-07-14 09:30 | NUR ---
NURSE NOTES SEEN BY DR REA WITH ORDER NOTED AND CARRIED OUT GONZALO CARO
[2019-07-14 10:26] LABS: BLOOD UREA NITROGEN 26 mg/dL (7-18); CREATININE 1.8 MG/DL (0.55-1.30)
[2019-07-14] MEDS ORDERED: Vancomycin 1gm/D5W 275ml IVPB SCH ×2 (11:30)
--- NOTE | 2019-07-14 11:35 | NUR ---
nurse notes on going vancomycin , per pharmacy on duty dont give it anymore christopher yepez
[2019-07-14 12:00] VITALS: BP 130/72
--- NOTE | 2019-07-14 13:44 | NUR ---
nurse notes discharge to home obtained, patient and agreed with the plan of care, discharge instruction packet handed to patient, discharge instruction teaching done all questions answered verbalized understanding [id number] discharged in stable condition with all belongings taken accompanied by , discharged via private car christopher yepez
--- NOTE | 2019-07-16 10:05 | Discharge Summary ---
Discharge Summary Discharge Summary _ DATE OF ADMISSION: 07/12/2019 DATE OF DISCHARGE: 07/14/2019 DISCHARGED BY: Dr. Chase REASON FOR ADMISSION: 84 years old male with past medical history of hypertension, long-standing history of brittle asthma, history of pneumonia, ulcerative colitis, BPH, GERD, was seen in the pulmonology office. Chest x-ray revealed evidence of pneumonia. Patient reported shortness of breath and productive cough. Patient received intramuscular antibiotic and nebulizing treatment at the office and subsequently was admitted to the hospital for further management. Laboratory workup revealed no leukocytosis , hemoglobin 13.1 , hematocrit 39. BUN 20, creatinine 1.7. CONSULTANTS: Internal medicine Dr. Hanccok [facility] COURSE: Patient admitted to medical surgical floor. Supplemental oxygen provided as needed to keep pulse oximetry above 92%. Nebulizing treatment with bronchodilator provided . Patient started on IV Solu-Medrol with gradual tapering down. GI prophylaxis provided. Patient started on empiric antibiotic. Spiriva inhaler initiated. Home medication resumed. Blood pressure was managed with Losartan. DVT prophylaxis provided. Proscar and Flomax continued. Asacol continued. Patient clinically stabilized and was ready for discharge home with home health services. FINAL DIAGNOSES: Patchy pneumonia Asthma/COPD Shortness of breath Respiratory insufficiency Hypertension DISCHARGE MEDICATIONS: See Medication Reconciliation list. DISCHARGE INSTRUCTIONS: Patient was discharged home with home health services. Follow up with primary care provider in one week. I have been assigned to dictate discharge summary for this account. I was not involved in the patient's management. Rosibel Moreira NP Jul 16, 2019 10:05
== END 2019-07-14 13:43 | disposition home or self-care (01) | DRG 194 ==
LOC: 4E 14:09
DX: J18.0 Bronchopneumonia, unspecified organism (principal); K51.90 Ulcerative colitis, unspecified, without complications; I10 Essential (primary) hypertension; K21.9 Gastro-esophageal reflux disease without esophagitis; N40.0 Benign prostatic hyperplasia without lower urinary tract symptoms; J44.9 Chronic obstructive pulmonary disease, unspecified; R06.89 Other abnormalities of breathing; R06.02 Shortness of breath
CPT/HCPCS: 36415; 80048; 80202; 82565; 84520; 85025; 94640; 94664

== ENCOUNTER 2019-09-16 18:26 | Inpatient (IN) | payer MEDICARE, OTHER ==
[~2019-09-16] VITALS: Ht 165.1 cm; Wt 74.9 kg
--- NOTE | 2019-09-16 18:31 | NUR ---
ED Nurse Note: PT brought in by [facility] ambulance from home for C/O sough with yellowish sputum and fever. PT stated he has been coughing for x 3 week. fever started ealier today.
[2019-09-16 18:32] VITALS: BP 120/60
--- NOTE | 2019-09-16 18:38 | Emergency Room Report ---
History of Present Illness General Chief Complaint: Upper Respiratory Illness Source: EMS Present Illness HPI Disclaimer: Please note that this report is being documented using DRAGON technology. This can lead to erroneous entry secondary to incorrect interpretation by the dictating instrument. HPI: 84-year-old male with a history of asthma, emphysema, colitis, GERD presents for evaluation of cough and fever. Patient and his describe an intermittent and nonproductive cough for the past few weeks that acutely worsened over the last few days. Fever was noted to be 101.4 today taken orally. Worsening cough and shortness of breath. EMS was called who found him saturating 90% on room air and diffusely wheezy. He was given an albuterol treatment with some improvement in aeration and decreased wheezing. He denies any chest pain or palpitations. Denies lower extremity swelling or history of heart failure. He has had pneumonia and been hospitalized with a similar presentation in the past. 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 He has been compliant with his inhalers and his duo nebs. PMH: Hypertension, hyperlipidemia, asthma, emphysema, colitis, GERD PSH: Reviewed Allergies: Azithromycin, penicillin Social Hx: Former smoker, quit 15 years ago. Allergies: Coded Allergies: PENICILLINS (Verified Allergy, Intermediate, 08/28/16) AZITHROMYCIN (Verified Allergy, Unknown, 08/28/16) Diarrhea Uncoded Allergies: mushrooms (Adverse Reaction, Severe, Shortness of Breath, 11/07/17) Nursing Documentation-PMH Past Medical History: No History, Except For Hx Hypertension: Yes - hyperlipidemia Hx Pacemaker: No Hx Asthma: Yes Hx COPD: Yes Hx Cancer: No Hx Gastrointestinal Problems: Yes - GERD Hx Neurological Problems: No Review of Systems All Other Systems: negative except mentioned in HPI Physical Exam Vital Signs Date Time Temp Pulse Resp B/P (MAP) Pulse Ox O2 Delivery O2 Flow Rate FiO2 09/16/19 18:27 100.4 130 28 115/72 (86) 97 Nasal Cannula 4.0 General: Awake and alert, appears uncomfortable with increased work of breathing HEENT: NC/AT. EOMI. Chest Wall: No tenderness, no deformity Cardiovascular: Tachycardic. S1 and S2 normal. No murmur appreciated Resp: Tachypnea and increased work of breathing. Expiratory wheezes with a prolonged expiratory phase bilaterally. Trace crackles at the right base. Intermittent nonproductive cough. Abdomen: Abdomen is soft, nondistended. Nontender Skin: Intact. No abrasions, laceration or rash over the exposed skin MSK: Normal tone and bulk. Moving all extremities. No obvious deformity. No lower extremity edema Neuro: Awake and alert. Mentating appropriately. Medical Decision Making Diagnostic Impression: Primary Impression: PNA (pneumonia) ER Course This is a 84-year-old male with history of emphysema and asthma presenting for evaluation of worsening cough and fevers at home. Differential includes was not limited to COPD exacerbation, emphysema, asthma exacerbation, bronchitis, viral syndrome, influenza, pneumonia. Start metabolic and infectious as well as cardiac work-up. Tylenol for fevers. Continued breathing treatments and steroids. Laboratory Tests Test 09/16/19 18:34 09/16/19 20:04 White Blood Count 16.6 K/UL (4.8-10.8) H Red Blood Count 4.96 M/UL (4.70-6.10) Hemoglobin 15.0 G/DL (14.2-18.0) Hematocrit 44.9 % (42.0-52.0) Mean Corpuscular Volume 90 FL (80-99) Mean Corpuscular Hemoglobin 30.2 PG (27.0-31.0) Mean Corpuscular Hemoglobin Concent 33.4 G/DL (32.0-36.0) Red Cell Distribution Width 11.1 % (11.6-14.8) L Platelet Count 264 K/UL (150-450) Mean Platelet Volume 5.7 FL (6.5-10.1) L Neutrophils (%) (Auto) 79.2 % (45.0-75.0) H Lymphocytes (%) (Auto) 16.3 % (20.0-45.0) L Monocytes (%) (Auto) 4.1 % (1.0-10.0) Eosinophils (%) (Auto) 0.1 % (0.0-3.0) Basophils (%) (Auto) 0.4 % (0.0-2.0) Sodium Level 136 MMOL/L (136-145) Potassium Level 3.8 MMOL/L (3.5-5.1) Chloride Level 101 MMOL/L (98-107) Carbon Dioxide Level 27 MMOL/L (21-32) Anion Gap 8 mmol/L (5-15) Blood Urea Nitrogen 21 mg/dL (7-18) H Creatinine 1.8 MG/DL (0.55-1.30) H Estimate Glomerular Filtration Rate mL/min (>60) Glucose Level 129 MG/DL (74-106) H Calcium Level 9.1 MG/DL (8.5-10.1) Total Bilirubin 0.5 MG/DL (0.2-1.0) Aspartate Amino Transferase (AST) 19 U/L (15-37) Alanine Aminotransferase (ALT) 26 U/L (12-78) Alkaline Phosphatase 134 U/L (46-116) H Troponin I 0.000 ng/mL (0.000-0.056) Pro-B-Type Natriuretic Peptide 170 pg/mL (0-125) H Total Protein 7.8 G/DL (6.4-8.2) Albumin 3.4 G/DL (3.4-5.0) Globulin 4.4 g/dL Albumin/Globulin Ratio 0.8 (1.0-2.7) L Arterial Blood pH 7.420 (7.350-7.450) Arterial Blood Partial Pressure CO2 38.6 mmHg (35.0-45.0) Arterial Blood Partial Pressure O2 80.9 mmHg (75.0-100.0) Arterial Blood HCO3 24.5 mmol/L (22.0-26.0) Arterial Blood Oxygen Saturation 95.8 % (95-100) Arterial Blood Base Excess 0.2 (-2-2) Adama Test Positive Microbiology Date/Time Source Procedure Growth Status 09/16/19 19:10 Nasal Nares - Final Complete 09/16/19 19:10 Nasal Nares - Final Complete EKG Diagnostic Results EKG Time: 18:35 Rate: tachycardiac Other Impression Sinus tachycardia, slight right axis deviation. No ST segment changes. Normal intervals. Rhythm Strip Diag. Results Rhythm Strip Time: 18:35 EP Interpretation: yes Rate: 140s Rhythm: no PVC's, no ectopy Chest X-Ray Diagnostic Results Chest X-Ray Diagnostic Results : Chest X-Ray Ordered: Yes # of Views/Limited/Complete: 1 View Indication: Shortness of Breath EP Interpretation: Yes Interpretation: other - No pneumothorax. Possible right lower lobe consolidation. Impression: Other - Possible right lower lobe pneumonia Electronically Signed by: Electronically signed by Dr. Toan Chao Reevaluation Time: 21:00 Last Vital Signs Date Time Temp Pulse Resp B/P (MAP) Pulse Ox O2 Delivery O2 Flow Rate FiO2 09/16/19 18:27 100.4 130 28 115/72 (86) 97 Nasal Cannula 4.0 Reevaluation Impression Concern for right lower lobe pneumonia. The patient was treated with Levaquin given his antibiotic allergies. Labs otherwise within normal limits. Heart rate is improving. ABG within normal limits. White count elevated at 16.6 with a shift of 80%. Chemistry shows an elevation in his creatinine his BUN. Consistent with baseline. Trop negative. Peptide unremarkable. Will admit for treatment of pneumonia. Disposition: ADMITTED INPATIENT Condition: Serious Toan Chao MD Sep 16, 2019 18:38
--- NOTE | 2019-09-16 18:40 | NUR ---
ED Nurse Note: Blood sample sent down to lab
[2019-09-16] MEDS ORDERED: Solu-MEDROL 125mg Inj ONE (18:41)
[2019-09-16] MEDS ORDERED: Acetaminophen 500mg (ES) tab ORAL ONE ×2 (18:41→18:45)
[2019-09-16] MEDS ORDERED: SPIRIVA18 MCG INH (18:42)
[2019-09-16] MEDS ORDERED: DICYCLOMINE HCL10 MG ORAL (18:42)
[2019-09-16] MEDS ORDERED: VENTOLIN HFA18 GM INH (18:42)
[2019-09-16] MEDS ORDERED: HYZAAR 100-12.1 EACH ORAL (18:42)
--- NOTE | 2019-09-16 18:44 | NUR ---
ED Nurse Note: x ray at bedside.
[2019-09-16] MEDS ORDERED: Solu-MEDROL 125mg Inj IVP ONE (18:45)
[2019-09-16 19:02] LABS: BASOPHILS % (AUTO) 0.4 % (0.0-2.0); EOSINOPHILS % (AUTO) 0.1 % (0.0-3.0); HEMATOCRIT 44.9 % (42.0-52.0); LYMPHOCYTES % (AUTO) 16.3 % (20.0-45.0); MEAN CORPUSCULAR VOLUME 90 FL (80-99); MONOCYTES % (AUTO) 4.1 % (1.0-10.0); NEUTROPHILS % (AUTO) 79.2 % (45.0-75.0); PLATELET COUNT 264 K/UL (150-450); RED BLOOD COUNT 4.96 M/UL (4.70-6.10); RED CELL DISTRIBUTION WIDTH 11.1 % (11.6-14.8); WHITE BLOOD COUNT 16.6 K/UL (4.8-10.8)
[2019-09-16 19:10] LABS: ANION GAP 8 mmol/L (5-15); BLOOD UREA NITROGEN 21 mg/dL (7-18); CALCIUM 9.1 MG/DL (8.5-10.1); CARBON DIOXIDE 27 MMOL/L (21-32); CHLORIDE 101 MMOL/L (98-107); CREATININE 1.8 MG/DL (0.55-1.30); POTASSIUM 3.8 MMOL/L (3.5-5.1); SODIUM 136 MMOL/L (136-145)
[2019-09-16] MEDS: Albuterol/Ipratropium 3ml neb HHN SCH ×2 (19:14→19:18)
[2019-09-16 19:25] LABS: ALANINE AMINOTRANSFERASE 26 U/L (12-78); ALBUMIN 3.4 G/DL (3.4-5.0); ALBUMIN/GLOBULIN RATIO 0.8 (1.0-2.7); ALKALINE PHOSPHATASE 134 U/L (46-116); ASPARTATE AMINO TRANSFERASE 19 U/L (15-37); BILIRUBIN,TOTAL 0.5 MG/DL (0.2-1.0)
[2019-09-16 20:30] VITALS: BP 126/66
--- NOTE | 2019-09-16 20:42 | NUR ---
ED Nurse Note: PT in bed resting, mp acute distress is noted.
[2019-09-16] MEDS ORDERED: Morphine Sulfate 2mg/ml Inj(IV/IM USE ONLY) IVP PRN (22:45)
--- NOTE | 2019-09-17 | NUR ---
NURSE NOTES: Pt transferred to the unit via gurney. A/O x4. Denies any pain at this time. On 2L NC, saturating at 96%. SR on air sampling and monitoring. Abd round and soft. IV on L AC 18G, intact and asymptomatic. Bed in the lowest position. Side rails up x3. Call light within reach. Will continue to monitor. Family member at the bedside. VS 105/62, P 100, R 18, sat at 97%, T 97.0. Belonging checked. Skin intact.
--- NOTE | 2019-09-17 00:15 | NUR ---
ER DISCHARGE NOTE: pt brought up to room 237-2 accompanied by vasc tech and RN in stable condiiton via gurney with monitor box. IV site is intact. Belonging list signed off. report given to David Dennis RN. Pt is at bedside.
[2019-09-17 00:30] VITALS: BP 105/62
--- NOTE | 2019-09-17 01:15 | NUR ---
NURSE NOTES: Left message to Dr. Chase and regarding admitting orders and awaiting call back. Pt is stable, sleeping , calm and comfortable. No acute distress noted at this time. Will continue to monitor.
[2019-09-17 04:00] VITALS: BP 122/69
--- NOTE | 2019-09-17 04:00 | NUR ---
NURSE NOTES: Pt sleeping in the bed, calm and comfortable. No acute distress noted at this time. Eder peña implied due to cold room temperature, unable to fix by engineering. Will continue to monitor.
[2019-09-17] MEDS ORDERED: Albuterol ud Inhalation HHN PRN (06:00)
[2019-09-17 06:32] LABS: HEMATOCRIT 41.9 % (42.0-52.0); HEMOGLOBIN 14.1 G/DL (14.2-18.0); MEAN CORPUSCULAR VOLUME 90 FL (80-99); PLATELET COUNT 253 K/UL (150-450); RED BLOOD COUNT 4.66 M/UL (4.70-6.10); RED CELL DISTRIBUTION WIDTH 12.7 % (11.6-14.8); WHITE BLOOD COUNT 9.8 K/UL (4.8-10.8)
[2019-09-17] MEDS: Albuterol ud Inhalation HHN SCH ×5 (07:11→23:00)
[2019-09-17 07:29] LABS: ANION GAP 12 mmol/L (5-15); BLOOD UREA NITROGEN 23 mg/dL (7-18); CALCIUM 9.2 MG/DL (8.5-10.1); CARBON DIOXIDE 22 MMOL/L (21-32); CHLORIDE 102 MMOL/L (98-107); CREATININE 1.9 MG/DL (0.55-1.30); POTASSIUM 4.4 MMOL/L (3.5-5.1); SODIUM 136 MMOL/L (136-145)
--- NOTE | 2019-09-17 07:47 | NUR ---
HAND-OFF: Report given to Annel Loera RN. No distressn noted at this time.
[2019-09-17 08:00] VITALS: BP 137/65
--- NOTE | 2019-09-17 08:00 | NUR ---
NURSE NOTES: pt in the bed, in the room, no co pain, vital signs stable, NS at 100 cc, dr. Chase saw pt, bed in low position, call light within reach.
[2019-09-17] MEDS: Solu-MEDROL 125mg Inj IVP SCH ×2 (09:53→21:00)
[2019-09-17] MEDS: Dicyclomine 10mg Cap ORAL SCH ×3 (09:53→18:00)
[2019-09-17] MEDS: Heparin 5000 units/ml inj SUBQ SCH ×2 (09:54→21:53)
[2019-09-17 12:00] VITALS: BP 130/58
--- NOTE | 2019-09-17 12:10 | NUR ---
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 100.4 HR 133 RR 28 B/P 115/72 4L NC O2 SAT @ 98% WBC 16.0 BUN 21 CR 1.8 BNP 170 IS: ALB HHN SOLU MEDROL IV LEVAQUIN IV ADMITTED TO STEP DOWN @ 0015 STEP DOWN STATUS DCP PENDING HOSPITAL STAY
--- NOTE | 2019-09-17 14:32 | NUR ---
NURSE NOTES: received pt in the bed, awake, alert, oriented, vital signs stable, no co pain, no SOB, skin warm and dry to touch, intact, appetite poor, abdomen distended, bed in low position, call light within reach.
--- NOTE | 2019-09-17 15:15 | History and Physical Report ---
DATE OF ADMISSION: 09/16/2019 REASON FOR ADMISSION: Shortness of breath, asthma/COPD exacerbation. HISTORY OF PRESENT ILLNESS: This is an 84-year-old male, well known to me. The patient with known history of asthma, difficult to control. The patient has been getting biologics. The patient presents with fever and cough and congestion. The patient notes the cough is nonproductive over the past 1 to 2 weeks with worsening in severity and noted to have a fever of 101.4. The patient also with low oxygen saturation. The patient now admitted for further evaluation. He did have a nasal swab, which was negative for influenza A and B. The patient now admitted for further management and intervention. PAST MEDICAL HISTORY: Notable for hypertension, hyperlipidemia, severe persistent asthma, colitis, GERD. ALLERGIES: Azithromycin and penicillin. SOCIAL HISTORY: The patient is a past smoker. Does not smoke or drink presently. He is . He is retired. MEDICATIONS: Reviewed and reconciled. ALLERGIES: Reviewed and reconciled. REVIEW OF SYSTEMS: All 10 points reviewed and otherwise negative. PHYSICAL EXAMINATION: GENERAL: A well-developed male, overall without significant distress. VITAL SIGNS: Currently, temperature is 97, pulse 94, saturation 96% on 2 liters, blood pressure 122/69. HEENT: Negative. Extraocular movements grossly intact. No thrush. No injection. No nasal drainage. LUNGS: With scattered wheezes. Reduced air entry. CARDIAC: S1, S2. Regular rate and rhythm without murmurs, rubs, or gallops. ABDOMEN: Soft, nontender, nondistended. EXTREMITIES: No cyanosis, clubbing, or edema. NEUROLOGIC: Grossly nonfocal. SKIN: Noted and reviewed. LABORATORY DATA: Reviewed. White blood cell count improved from 16.6 down to 9.8, hematocrit 41.9. Chemistries essentially negative. BUN 23 and creatinine 1.9. Albumin 3.4. Sodium 136. Arterial blood gas is essentially negative. IMPRESSION: 1. Fever, possible viral etiology, unclear at this time. 2. Possible early pneumonia. 3. COPD/asthma with acute exacerbation. 4. Acute bronchospasm. 5. Negative influenza. 6. Hypertension. RECOMMENDATIONS: Supportive care. Antibiotics for now. We will follow up x-ray and exam. DVT prophylaxis. Nebulized therapy. Solu-Medrol. Pain control as needed. Monitor and discharge once improved. Anderson Chase M.D. DR: SALOMÓN JOB#: [id number] CC:
[2019-09-17 16:00] VITALS: BP 118/65
--- NOTE | 2019-09-17 16:29 | Diagnostic Imaging Report ---
Indication: Shortness of breath Technique: One view of the chest Comparison: 05/14/2018 Findings: There are bilateral basilar atelectatic changes. The lungs and pleural spaces are otherwise clear. The heart size is normal. Impression: Bilateral basilar atelectasis. No acute process otherwise
--- NOTE | 2019-09-17 19:28 | NUR ---
HAND-OFF: Report given to DENA SÁNCHEZ, condition stable.
[2019-09-17 20:00] VITALS: BP 135/74
[2019-09-17] MEDS ORDERED: Tamsulosin 0.4mg cap ORAL SCH (21:00)
--- NOTE | 2019-09-17 22:00 | NUR ---
NURSE NOTES: Moving patient to Telemetry and patient refused. Patient's was upset that I woke them and that I was going to move them. I explained that the patient was stable enough to be in the telemetry unit.
--- NOTE | 2019-09-18 | NUR ---
NURSE NOTES: Patient refused vitals. Patients stated that his blood pressure is normal. Patient is awake in no acute distress.
--- NOTE | 2019-09-18 02:30 | NUR ---
NURSE NOTES: Patient refused vital signs. stated that the patient's blood pressure was fine. Patient was awake with no signs of distress. Charge nurse notified.
[2019-09-18] MEDS: Albuterol ud Inhalation HHN SCH ×5 (03:30→22:41)
--- NOTE | 2019-09-18 08:00 | NUR ---
HAND-OFF: Report given to GONZALO Cabrera.
[2019-09-18 08:27] VITALS: BP 119/61
--- NOTE | 2019-09-18 08:29 | General Progress Note ---
Assessment/Plan Problem List: (1) COPD (chronic obstructive pulmonary disease) ICD Codes: J44.9 - Chronic obstructive pulmonary disease, unspecified SNOMED: 19231451 (2) Bronchitis ICD Codes: J40 - Bronchitis, not specified as acute or chronic SNOMED: 49275465 (3) Hypertension ICD Codes: I10 - Essential (primary) hypertension SNOMED: 16986946 Status: stable Assessment/Plan: iv steroids resp rx abx o2 Subjective ROS Limited/Unobtainable: No Constitutional: Reports: malaise, weakness HEENT: Reports: no symptoms Cardiovascular: Reports: no symptoms Respiratory: Reports: cough Gastrointestinal/Abdominal: Reports: no symptoms Genitourinary: Reports: no symptoms Neurologic/Psychiatric: Reports: no symptoms Endocrine: Reports: no symptoms Hematologic/Lymphatic: Reports: no symptoms Allergies: Coded Allergies: PENICILLINS (Verified Allergy, Intermediate, 08/28/16) AZITHROMYCIN (Verified Allergy, Unknown, 08/28/16) Diarrhea Uncoded Allergies: mushrooms (Adverse Reaction, Severe, Shortness of Breath, 11/07/17) All Systems: reviewed and negative except above Subjective stable. feels more congested though. no fevers. Objective Last 24 Hour Vital Signs Date Time Temp Pulse Resp B/P (MAP) Pulse Ox O2 Delivery O2 Flow Rate FiO2 09/18/19 07:46 92 18 97 Nasal Cannula 2.0 28 101 20 96 09/18/19 07:46 96 Nasal Cannula 2.0 28 09/18/19 04:00 2.0 09/18/19 04:00 103 09/18/19 03:31 102 18 99 Nasal Cannula 2.0 28 101 18 97 09/18/19 00:00 2.0 09/18/19 00:00 103 09/17/19 21:00 Nasal Cannula 2.0 09/17/19 21:00 2.0 09/17/19 20:00 98.0 111 22 135/74 (94) 100 09/17/19 20:00 111 09/17/19 19:05 102 18 99 Nasal Cannula 2.0 28 103 18 97 09/17/19 19:05 97 Nasal Cannula 2.0 28 09/17/19 18:00 108 09/17/19 16:00 2.0 09/17/19 16:00 97.9 107 20 118/65 (82) 95 09/17/19 15:37 99 18 97 Nasal Cannula 2.0 28 102 18 96 09/17/19 12:00 98.5 106 20 130/58 (82) 94 09/17/19 12:00 2.0 09/17/19 12:00 100 09/17/19 10:56 97 18 98 Nasal Cannula 2.0 28 102 18 96 09/17/19 09:00 Nasal Cannula 2.0 Intake and Output 09/17/19 09/18/19 19:00 07:00 Intake Total 1480 ml 1200 ml Balance 1480 ml 1200 ml Intake Oral 280 ml IV Total 1200 ml 1200 ml # Voids 3 2 Height (Feet): 5 Height (Inches): 5.00 Weight (Pounds): 160 General Appearance: WD/WN, alert Neck: supple Cardiovascular: regular rhythm Respiratory/Chest: rhonchi - bilaterally Abdomen: normal bowel sounds, non tender, soft Edema: no edema noted Arm (L), no edema noted Arm (R), no edema noted Leg (L), no edema noted Leg (R), no edema noted Pedal (L), no edema noted Pedal (R), no edema noted Generalized John Hancock MD Sep 18, 2019 08:29
[2019-09-18] MEDS: Solu-MEDROL 125mg Inj IVP SCH ×2 (08:41→20:25)
[2019-09-18] MEDS: Heparin 5000 units/ml inj SUBQ SCH ×2 (08:47→20:26)
[2019-09-18] MEDS: Dicyclomine 10mg Cap ORAL SCH ×3 (08:48→17:14)
--- NOTE | 2019-09-18 09:09 | Pulmonology Progress Note ---
Assessment/Plan Assessment/Plan COPD exacerbation SOB hypertension atelectasis acute bronchitis PLAN taper solumedrol antibiotics as is dc fluids respiratory care oxygen dc tele impression, plan, and exam edited and reviewed in detail care discussed with RN Subjective Allergies: Coded Allergies: PENICILLINS (Verified Allergy, Intermediate, 08/28/16) AZITHROMYCIN (Verified Allergy, Unknown, 08/28/16) Diarrhea Uncoded Allergies: mushrooms (Adverse Reaction, Severe, Shortness of Breath, 11/07/17) Subjective still sob easily dyspneic minimal sputum production cxr discussed present Objective Last 24 Hour Vital Signs Date Time Temp Pulse Resp B/P (MAP) Pulse Ox O2 Delivery O2 Flow Rate FiO2 09/18/19 08:27 96.0 97 20 119/61 (80) 93 09/18/19 07:46 92 18 97 Nasal Cannula 2.0 28 101 20 96 09/18/19 07:46 96 Nasal Cannula 2.0 28 09/18/19 04:00 2.0 09/18/19 04:00 103 09/18/19 03:31 102 18 99 Nasal Cannula 2.0 28 101 18 97 09/18/19 00:00 2.0 09/18/19 00:00 103 09/17/19 21:00 Nasal Cannula 2.0 09/17/19 21:00 2.0 09/17/19 20:00 98.0 111 22 135/74 (94) 100 09/17/19 20:00 111 09/17/19 19:05 102 18 99 Nasal Cannula 2.0 28 103 18 97 09/17/19 19:05 97 Nasal Cannula 2.0 28 09/17/19 18:00 108 09/17/19 16:00 2.0 09/17/19 16:00 97.9 107 20 118/65 (82) 95 09/17/19 15:37 99 18 97 Nasal Cannula 2.0 28 102 18 96 09/17/19 12:00 98.5 106 20 130/58 (82) 94 09/17/19 12:00 2.0 09/17/19 12:00 100 09/17/19 10:56 97 18 98 Nasal Cannula 2.0 28 102 18 96 Intake and Output 09/17/19 09/18/19 19:00 07:00 Intake Total 1480 ml 1200 ml Balance 1480 ml 1200 ml Intake Oral 280 ml IV Total 1200 ml 1200 ml # Voids 3 2 Objective WDWN NAD clear breath sounds bilaterally without rhonchi or wheeze [id number] without MRG NABS nontender no HSM no CCE nonfocal Microbiology Date/Time Source Procedure Growth Status 09/16/19 19:10 Nasal Nares - Final Complete 09/16/19 19:10 Nasal Nares - Final Complete Current Medications Medications (Trade) Dose Ordered Sig/Kylah Route PRN Reason Start Time Stop Time Status Last Admin Dose Admin Acetaminophen (Tylenol) 650 mg Q4H PRN ORAL Mild Pain/Temp > 100.5 09/17/19 05:45 10/17/19 05:44 Al Hydroxide/Mg Hydroxide (Mylanta) 30 ml Q4H PRN ORAL STOMACH UPSET 09/17/19 05:45 10/17/19 05:44 Albuterol Sulfate (Proventil) 2.5 mg Q4HRT HHN 09/17/19 07:00 09/22/19 06:59 09/18/19 07:45 Albuterol Sulfate (Proventil) 2.5 mg Q4HRT PRN HHN Shortness of Breath 09/17/19 06:00 09/22/19 05:59 Dicyclomine HCl (Bentyl) 10 mg TID ORAL 09/17/19 09:00 10/17/19 08:59 09/17/19 09:53 Ferrous Sulfate (Feosol) 325 mg ACBREAKFAST ORAL 09/17/19 06:30 10/17/19 06:29 09/18/19 06:14 Finasteride (Proscar) 5 mg DAILY ORAL 09/17/19 09:00 10/17/19 08:59 09/18/19 08:41 Heparin Sodium (Porcine) (Heparin 5000 units/ml) 5,000 units EVERY 12 HOURS SUBQ 09/17/19 09:00 10/17/19 08:59 09/18/19 08:47 Ibuprofen (Motrin) 600 mg PRN PRN ORAL Mild Pain (Pain Scale 1-3) 09/16/19 22:45 Levofloxacin 150 ml @ 100 mls/hr Q48H IVPB 09/18/19 20:00 09/25/19 19:59 Methylprednisolone Sodium Succinate (Solu-MEDROL) 60 mg EVERY 12 HOURS IVP 09/17/19 09:00 10/17/19 08:59 09/18/19 08:41 Morphine Sulfate (Morphine Sulfate) 2 mg PRN PRN IVP Moderate Pain (Pain Scale 4-6) 09/16/19 22:45 Ondansetron HCl (Zofran) 4 mg PRN PRN IVP Nausea & Vomiting 09/16/19 22:45 Pantoprazole (Protonix) 40 mg ACBREAKFAST ORAL 09/17/19 06:30 10/17/19 06:29 09/18/19 06:13 Tamsulosin HCl (Flomax) 0.4 mg BEDTIME ORAL 09/17/19 21:00 10/17/19 20:59 09/17/19 21:51 Tiotropium Massey (Spiriva Inhaler) 1 puff DAILY INH 09/17/19 09:00 10/17/19 08:59 09/18/19 08:01 Anderson Chase MD Sep 18, 2019 09:09
[2019-09-18 12:00] VITALS: BP 136/66
--- NOTE | 2019-09-18 13:14 | NUR ---
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 96.0 HR 92 RR 14 B/P 119/61 IS: SOLU MEDROL IV ALB HHN LEVAQUIN IV HEPARIN SUBC TELE STATUS
[2019-09-18] MEDS ORDERED: Albuterol ud Inhalation HHN PRN (15:00)
[2019-09-18 16:00] VITALS: BP 118/65
--- NOTE | 2019-09-18 19:15 | NUR ---
NURSE NOTES: received report form GONZALO Fields, pt. received in bed, A/O x's 4- Solomon Islander speaking/ at bedside, no signs or symptoms of acute cardiac or respiratory distress noted, bed alarm on, side rails up x's 3 and safety brakes engaged, bed alarm on, and call light within easy reach, pty. appears to be sating well on room air - no distress noted, pt. appears to be resting comfortably, left AC 18G IV intact and patent, safety measures continued, will continue with plan of care.
--- NOTE | 2019-09-18 19:32 | NUR ---
HAND-OFF: Report given to bernabe white.
[2019-09-18 20:00] VITALS: BP 143/62
[2019-09-18] MEDS ORDERED: Tamsulosin 0.4mg cap ORAL SCH (21:00)
[2019-09-18] MEDS ORDERED: Morphine Sulfate 2mg/ml Inj(IV/IM USE ONLY) IVP PRN (22:45)
[2019-09-19] VITALS: BP 122/63
[2019-09-19] MEDS: Albuterol ud Inhalation HHN SCH ×3 (03:00→11:52)
--- NOTE | 2019-09-19 07:06 | NUR ---
HAND-OFF: Report given to Jose Love- pt. remains stable and no distress noted- nurse aware to f/u on am labs as they are still pending.
--- NOTE | 2019-09-19 07:09 | NUR ---
NURSE NOTES: Received report from GONZALO Campos. PT in bed, awake, at bedside, Bulgarian speaking, no c/o pain, no respiratory distress at this time, Pt has order for NC 2L, pt is on RA as he takes off NC, pt is med/surg pt, no tele box, bed in lowest position, call light within reach.
[2019-09-19 08:00] VITALS: BP 134/74
[2019-09-19] MEDS: Dicyclomine 10mg Cap ORAL SCH (09:00)
[2019-09-19] MEDS: Solu-MEDROL 125mg Inj IVP SCH (09:24)
[2019-09-19] MEDS: Heparin 5000 units/ml inj SUBQ SCH (09:31)
--- NOTE | 2019-09-19 09:39 | General Progress Note ---
Assessment/Plan Problem List: (1) COPD (chronic obstructive pulmonary disease) ICD Codes: J44.9 - Chronic obstructive pulmonary disease, unspecified SNOMED: 39311397 (2) Bronchitis ICD Codes: J40 - Bronchitis, not specified as acute or chronic SNOMED: 39473406 (3) Hypertension ICD Codes: I10 - Essential (primary) hypertension SNOMED: 04959765 Status: stable Assessment/Plan: po steroid guicho resp rx abx o2 dc planning Subjective ROS Limited/Unobtainable: No Constitutional: Reports: malaise, weakness HEENT: Reports: no symptoms Cardiovascular: Reports: no symptoms Respiratory: Reports: cough Gastrointestinal/Abdominal: Reports: no symptoms Genitourinary: Reports: no symptoms Neurologic/Psychiatric: Reports: no symptoms Endocrine: Reports: no symptoms Hematologic/Lymphatic: Reports: no symptoms Allergies: Coded Allergies: PENICILLINS (Verified Allergy, Intermediate, 08/28/16) AZITHROMYCIN (Verified Allergy, Unknown, 08/28/16) Diarrhea Uncoded Allergies: mushrooms (Adverse Reaction, Severe, Shortness of Breath, 11/07/17) All Systems: reviewed and negative except above Subjective feels better today. no chest pain decreased cough and congestion. Objective Last 24 Hour Vital Signs Date Time Temp Pulse Resp B/P (MAP) Pulse Ox O2 Delivery O2 Flow Rate FiO2 09/19/19 08:34 Room Air 09/19/19 08:02 99 18 97 Room Air 21 97 18 92 09/19/19 08:02 92 Room Air 21 09/19/19 08:00 96.3 20 20 134/74 (94) 93 09/19/19 00:00 97.5 91 22 122/63 (82) 94 09/18/19 22:41 80 20 98 Room Air 21 72 18 96 09/18/19 21:00 Room Air 09/18/19 20:00 96.4 90 22 143/62 (89) 96 09/18/19 19:16 97 Room Air 21 09/18/19 16:00 96.6 91 20 118/65 (82) 96 09/18/19 15:24 82 18 98 Room Air 21 86 20 94 09/18/19 12:00 97.1 95 18 136/66 (89) 95 Intake and Output 09/18/19 09/19/19 19:00 07:00 Intake Total 700 ml 150 ml Balance 700 ml 150 ml Intake Oral 700 ml IV Total 150 ml # Voids 3 1 Height (Feet): 5 Height (Inches): 5.00 Weight (Pounds): 165 General Appearance: WD/WN, alert Neck: supple Cardiovascular: regular rhythm Respiratory/Chest: normal breath sounds Abdomen: normal bowel sounds, non tender, soft, no organomegaly Edema: no edema noted Arm (L), no edema noted Arm (R), no edema noted Leg (L), no edema noted Leg (R), no edema noted Pedal (L), no edema noted Pedal (R), no edema noted Generalized John Hancock MD Sep 19, 2019 09:39
--- NOTE | 2019-09-19 11:44 | Pulmonology Progress Note ---
Assessment/Plan Assessment/Plan COPD exacerbation SOB hypertension atelectasis acute bronchitis PLAN medrol dose ephraim dc antibiotics no sputum dc fluids respiratory care oxygen dc home does not want CT impression, plan, and exam edited and reviewed in detail care discussed with RN Subjective Allergies: Coded Allergies: PENICILLINS (Verified Allergy, Intermediate, 08/28/16) AZITHROMYCIN (Verified Allergy, Unknown, 08/28/16) Diarrhea Uncoded Allergies: mushrooms (Adverse Reaction, Severe, Shortness of Breath, 11/07/17) Subjective reduced sob easily dyspneic minimal sputum production cxr discussed present Objective Last 24 Hour Vital Signs Date Time Temp Pulse Resp B/P (MAP) Pulse Ox O2 Delivery O2 Flow Rate FiO2 09/19/19 08:34 Room Air 09/19/19 08:02 99 18 97 Room Air 21 97 18 92 09/19/19 08:02 92 Room Air 21 09/19/19 08:00 96.3 20 20 134/74 (94) 93 09/19/19 00:00 97.5 91 22 122/63 (82) 94 09/18/19 22:41 80 20 98 Room Air 21 72 18 96 09/18/19 21:00 Room Air 09/18/19 20:00 96.4 90 22 143/62 (89) 96 09/18/19 19:16 97 Room Air 21 09/18/19 16:00 96.6 91 20 118/65 (82) 96 09/18/19 15:24 82 18 98 Room Air 21 86 20 94 09/18/19 12:00 97.1 95 18 136/66 (89) 95 Intake and Output 09/18/19 09/19/19 19:00 07:00 Intake Total 700 ml 150 ml Balance 700 ml 150 ml Intake Oral 700 ml IV Total 150 ml # Voids 3 1 Objective WDWN NAD clear breath sounds bilaterally without rhonchi or wheeze [id number] without MRG NABS nontender no HSM no CCE nonfocal Microbiology Date/Time Source Procedure Growth Status 09/16/19 19:10 Nasal Nares - Final Complete 09/16/19 19:10 Nasal Nares - Final Complete Current Medications Medications (Trade) Dose Ordered Sig/Kylah Route PRN Reason Start Time Stop Time Status Last Admin Dose Admin Acetaminophen (Tylenol) 650 mg Q4H PRN ORAL Mild Pain/Temp > 100.5 09/18/19 13:45 10/17/19 05:44 Al Hydroxide/Mg Hydroxide (Mylanta) 30 ml Q4H PRN ORAL STOMACH UPSET 09/18/19 13:45 10/17/19 05:44 Albuterol Sulfate (Proventil) 2.5 mg Q4HRT HHN 09/18/19 15:00 09/22/19 06:59 09/19/19 08:01 Albuterol Sulfate (Proventil) 2.5 mg Q4HRT PRN HHN Shortness of Breath 09/18/19 15:00 09/22/19 05:59 Dicyclomine HCl (Bentyl) 10 mg TID ORAL 09/18/19 13:00 10/17/19 08:59 Ferrous Sulfate (Feosol) 325 mg ACBREAKFAST ORAL 09/19/19 06:30 10/17/19 06:29 09/19/19 05:48 Finasteride (Proscar) 5 mg DAILY ORAL 09/19/19 09:00 10/17/19 08:59 09/19/19 09:25 Heparin Sodium (Porcine) (Heparin 5000 units/ml) 5,000 units EVERY 12 HOURS SUBQ 09/18/19 21:00 10/17/19 08:59 09/19/19 09:31 Levofloxacin 150 ml @ 100 mls/hr Q48H IVPB 09/18/19 20:00 09/25/19 19:59 09/18/19 20:24 Methylprednisolone Sodium Succinate (Solu-MEDROL) 60 mg EVERY 12 HOURS IVP 09/18/19 21:00 10/17/19 08:59 09/19/19 09:24 Morphine Sulfate (Morphine Sulfate) 2 mg PRN PRN IVP Moderate Pain (Pain Scale 4-6) 09/18/19 22:45 Ondansetron HCl (Zofran) 4 mg PRN PRN IVP Nausea & Vomiting 09/18/19 22:45 Pantoprazole (Protonix) 40 mg ACBREAKFAST ORAL 09/19/19 06:30 10/17/19 06:29 09/19/19 05:48 Tamsulosin HCl (Flomax) 0.4 mg BEDTIME ORAL 09/18/19 21:00 10/17/19 20:59 09/18/19 20:25 Tiotropium [place] (Spiriva Inhaler) 1 puff DAILY INH 09/19/19 09:00 10/17/19 08:59 Anderson Chase MD Sep 19, 2019 11:44
[2019-09-19 12:00] VITALS: BP 128/74
--- NOTE | 2019-09-19 12:26 | NUR ---
NURSE NOTES: Pt signed all DC paperwork, has all belongings, taxi has been called by pt's , IV removed intact, ID band removed, no tele box, pt stable for Discharge will go down at 1250
--- NOTE | 2019-09-21 08:53 | Discharge Summary ---
Discharge Summary Discharge Summary _ DATE OF ADMISSION: 09/16/2019 DATE OF DISCHARGE: 09/19/2019 DISCHARGED BY: Dr. Chase REASON FOR ADMISSION: 84 years old male with past medical history of hypertension, hyperlipidemia, severe persistent asthma, colitis, GERD, presented with fever, cough and congestion. Cough was nonproductive over the past 2 weeks with gradual worsening in severity. Fever 101.4. Patient was hypoxic. Asthma overall difficult to control. Patient on biological modifier for asthma control. Patient denied chest pain . Patient reported compliance with inhalers and and nebulizing treatment. Upon evaluation patient was tachycardic, tachypneic, febrile and hypoxic. Physical examination revealed expiratory wheezes and increased work of breathing. Chest x-ray revealed bilateral basilar atelectasis. No acute process otherwise. Laboratory work-up revealed leukocytosis WBC 16.6, stable hemoglobin and hematocrit. ABG was stable on 4 L of oxygen via nasal cannula. BUN 21 , creatinine 1.8. Glucose 129. Troponin negative. pro BNP 170. EKG revealed sinus tachycardia, no acute ischemic changes . In emergency department influenza swab was negative. Patient received nebulizing treatment with bronchodilator, started on empiric antibiotic and admitted for further management. CONSULTANTS: internal medicine Dr. Hancock [facility] COURSE: Patient admitted to telemetry floor and started on empiric antibiotic. Supplemental oxygen provided and titrated to keep oximetry above 92%. Bronchodilator therapy via HHN provided [id number] and as needed. Patient started on IV steroids with gradual tapering. Patient declined chest physiotherapy. Patient was unable to produce any sputum. Leukocytosis resolved the next day. No fevers. Patient had acute bronchitis. Antibiotics were stopped. DVT prophylaxis provided. Home medication resumed. GI prophylaxis provided. Blood pressure was closely monitored and remained stable. Patient had at home oxygen and nebulizing treatment. Prior to discharge pulse oximetry was stable on room air. Patient clinically stabilized and was ready for discharge . FINAL DIAGNOSES: COPD/asthma with acute exacerbation Acute bronchitis Shortness of breath Atelectasis Hypertension DISCHARGE MEDICATIONS: See Medication Reconciliation list. DISCHARGE INSTRUCTIONS: Patient was discharged home. Follow-up with plant inspector in 1 week. I have been assigned to dictate discharge summary for this account. I was not involved in the patient's management. Rosibel Moreira NP Sep 21, 2019 08:53
== END 2019-09-19 15:18 | disposition home or self-care (01) | DRG 191 ==
LOC: EDBD 18:26 → EDSEX 18:26 → EMR 18:45 → 2W 19:32 → EDBEDREQ 23:39 → 2W 09-18 00:27 → 2E 09-18 09:40
DX: J44.0 Chronic obstructive pulmonary disease with (acute) lower respiratory infection (principal); J98.11 Atelectasis; J44.1 Chronic obstructive pulmonary disease with (acute) exacerbation; J20.9 Acute bronchitis, unspecified; K21.9 Gastro-esophageal reflux disease without esophagitis; Z88.1 Allergy status to other antibiotic agents; Z88.0 Allergy status to penicillin; Z87.891 Personal history of nicotine dependence; I10 Essential (primary) hypertension; E78.5 Hyperlipidemia, unspecified
CPT/HCPCS: 36415; 36600; 71045; 80048; 80053; 82803; 83880; 84484; 85007; 85025; 86710; 93005; 94640; 94664; 96365; 96375; 99285; J7030; J7620